=== PATIENT | female | born 1990 | race Caucasian/White ===

== ENCOUNTER → 2020-05-16 | Outpatient (CLI) | payer OTHER, SELFPAY ==
[2020-05-16 13:30] VITALS: BMI 45.1
[2020-05-16 18:20] LABS: Amphetamine Urine VISTA NEGATIVE (<1000 ng/mL); Barbiturate Urine VISTA NEGATIVE (< 200 ng/mL); Benzodiazepine Urine VISTA NEGATIVE (< 200 ng/mL); Cocaine Urine VISTA NEGATIVE (< 300 ng/mL); Ecstacy Urine VISTA NEGATIVE (< 500 ng/mL); Methadone Urine VISTA NEGATIVE (< 300 ng/mL); PCP Urine VISTA NEGATIVE (< 25 ng/mL); THC Urine VISTA NEGATIVE (< 50 ng/mL); Vista UDS pH Range 5
[2020-05-22 13:16] LABS: HPV APTIMA, High Risk Negative (Negative)
== END | disposition home or self-care (01) ==
LOC: LABSPEC 17:23
PROVIDERS: PCP Family Medicine; Referring Provider Obstetrics & Gynecology; Visit Provider Obstetrics & Gynecology
DX: Z34.90 Encounter for supervision of normal pregnancy, unspecified, unspecified trimester (principal)
CPT/HCPCS: 80307; 87086; 87088; 87491; 87591; 87624; 88175; G0145

== ENCOUNTER → 2020-06-06 09:54 | Outpatient (CLI) | payer OTHER, SELFPAY ==
[2020-05-16 13:30] VITALS: BMI 45.1
[2020-06-06 10:40] LABS: Absolute Neutrophil Count 4.8 X10^3/uL (2.0-7.7); Basophil# 0.01 X10^3/uL; Basophil% 0.1 % (0-1); Eosinophil# 0.11 X10^3/uL; Eosinophils% 1.6 % (0-5); Hemoglobin 12.7 g/dL (12.0-15.0); Lymphocyte % 23.3 % (19-41); Mean Corp Hgb Conc 32.6 g/dL (32-36); Mean Corpuscular Hgb 27.9 pg (27.0-32.0); Mean Corpuscular Volume 85.5 fL (81-99); Mean Platelet Vol. 10.1 fl (6.2-12.0); Monocyte# 0.34 X10^3/uL; Monocyte% 4.9 % (0-10); NRBC Flagged by Analyzer 0 % (0-5); Neutrophil # 4.76 X10^3/uL (2.7-7.7); Neutrophil % 69.2 % (47-70); Platelet Count 239 K/mm3 (150-450); RBC Distribution Width CV 13.1 % (11.6-14.6); RBC Distribution Width SD 40.5 fl (35.1-43.9); Red Blood Count 4.56 M/mm3 (4.2-5.4); White Blood Count 6.9 K/mm3 (4.4-11.0)
[2020-06-06 10:59] LABS: NATERA MAILED SPECIMEN
[2020-06-06 11:05] LABS: Glucose Challenge Gest 1H 50g 157 mg/dL (70-140)
[2020-06-06 11:45] LABS: HIV - WCH Non-Reactive (Nonreactive); Hepatitis B Surface Antigen Non-Reactive (Nonreactive); Hepatitis C Antibody Non-Reactive (Nonreactive); Rubella IgG 86.3 IU/mL
[2020-06-08 02:16] LABS: Rapid Plasmin Reagin (RPR) NONREACTIVE (NONREACTIVE)
== END ==
PROVIDERS: PCP Family Medicine; Referring Provider Obstetrics & Gynecology; Visit Provider Obstetrics & Gynecology
DX: Z34.81 Encounter for supervision of other normal pregnancy, first trimester (principal)
CPT/HCPCS: 36415; 82950; 85025; 86592; 86703; 86762; 86803; 86850; 86900; 86901; 87340

== ENCOUNTER → 2020-06-13 | Outpatient (CLI) | payer OTHER, SELFPAY ==
[2020-06-13 13:35] VITALS: BMI 45.1
[2020-06-13 19:45] LABS: Chlamydia Trachomatis by PCR Negative (Negative); Neisserai gonorrhoeae by PCR Negative (Negative); Probe Check PASS; Sample Adequacy Control PASS; Specimen Processing Control PASS
== END | disposition home or self-care (01) ==
LOC: LABSPEC 16:46
PROVIDERS: PCP Family Medicine; Referring Provider Obstetrics & Gynecology; Visit Provider Obstetrics & Gynecology
DX: Z34.90 Encounter for supervision of normal pregnancy, unspecified, unspecified trimester (principal)
CPT/HCPCS: 87491; 87591

== ENCOUNTER → 2020-06-14 06:56 | Outpatient (CLI) | payer OTHER, SELFPAY ==
[2020-05-16 13:30] VITALS: BMI 45.1
[2020-06-13 13:35] VITALS: BMI 45.1
[2020-06-14 08:04] LABS: Glucose GTT-Gestation. Fasting 102 mg/dL (<105)
[2020-06-14 08:40] LABS: Glucose GTT-Gestational 1 Hr 160 mg/dL (<190)
[2020-06-14 10:26] LABS: Glucose GTT-Gestational 2 Hr 158 mg/dL (<165)
[2020-06-14 11:36] LABS: Glucose GTT-Gestational 3 Hr 136 L (<145)
== END ==
PROVIDERS: Referring Provider Obstetrics & Gynecology; Visit Provider Obstetrics & Gynecology
DX: O99.810 Abnormal glucose complicating pregnancy (principal)
CPT/HCPCS: 36415; 82951; 82952

== ENCOUNTER 2020-07-18 08:30 | Outpatient (RCR) | payer OTHER, SELFPAY ==
[2020-06-20 15:22] VITALS: BMI 45.1
== END 2020-07-19 23:59 ==
LOC: DC 08:30
PROVIDERS: Visit Provider Obstetrics & Gynecology
DX: Z71.3 Dietary counseling and surveillance (principal); O24.419 Gestational diabetes mellitus in pregnancy, unspecified control; Z3A.00 Weeks of gestation of pregnancy not specified
CPT/HCPCS: 97802; G0108

== ENCOUNTER 2020-08-10 10:00 | Outpatient (RCR) | payer OTHER, SELFPAY ==
[2020-07-11 13:47] VITALS: BMI 44.1
== END 2020-08-19 23:59 ==
LOC: DC 10:00
PROVIDERS: Visit Provider Obstetrics & Gynecology
DX: Z71.3 Dietary counseling and surveillance (principal); O24.419 Gestational diabetes mellitus in pregnancy, unspecified control; Z3A.00 Weeks of gestation of pregnancy not specified
CPT/HCPCS: G0108

== ENCOUNTER → 2020-08-25 13:18 | Outpatient (CLI) | payer OTHER, SELFPAY ==
[2020-08-07 11:57] VITALS: BMI 43.8
== END ==
PROVIDERS: Referring Provider Obstetrics & Gynecology; Visit Provider Obstetrics & Gynecology
DX: O09.90 Supervision of high risk pregnancy, unspecified, unspecified trimester (principal); Z3A.00 Weeks of gestation of pregnancy not specified
CPT/HCPCS: 36415

== ENCOUNTER 2020-09-07 10:00 | Outpatient (RCR) | payer OTHER, SELFPAY ==
[2020-08-07 11:57] VITALS: BMI 43.8
== END 2020-09-07 23:59 | disposition home or self-care (01) ==
LOC: DC 10:00
PROVIDERS: Visit Provider Obstetrics & Gynecology
DX: O24.419 Gestational diabetes mellitus in pregnancy, unspecified control (principal); Z3A.00 Weeks of gestation of pregnancy not specified

== ENCOUNTER → 2020-09-25 09:09 | Outpatient (CLI) | payer OTHER, SELFPAY ==
[2020-08-07 11:57] VITALS: BMI 43.8
[2020-09-19 11:22] VITALS: BMI 43.0
--- NOTE | 2020-09-25 09:11 | US_ITS ---
STUDY: SECOND AND THIRD TRIMESTER OBSTETRICAL ULTRASOUND REASON FOR EXAM: Female, 29 years old growth LMP: 03/12/2020. TECHNIQUE: Transabdominal TECHNICAL QUALITY: Adequate. PRIOR ULTRASOUND: None. FINDINGS: There is a single intrauterine fetus. The fetus is in a cephalic presentation. There is demonstrated cardiac activity with a heart rate of 143 bpm. There is a normal amniotic fluid volume. The largest amniotic fluid pocket measures 6 cm x 4.9 cm. The amniotic fluid index (MARCUS) is within normal limits. The placenta is anterior in location and is not low lying. There are Grade 1 placental changes. The cervix measures 3.9 cm in length. The adnexal regions are not visualized. BIOMETRY: BPD: 7.42 cm: 29 weeks, 5 days HC: 26.7 cm: 29 weeks, 0 days AC: 24.55 cm: 28 weeks, 5 days FL: 5.27 cm: 28 weeks, 0 days CI: 81.5% FL/BPD: 71.1% FL/HC: FL/AC: 21.5% HC/AC: 1.09 age by current US: 28 weeks, 4 days. RADHA by current US: 12/14/2020. Estimated weight: 1259 grams, +/- 186 grams, 56 %. Age by LMP: 28 weeks, 0 days. RADHA by LMP: 12/18/2020. US/OB Limited With Biometrics IMPRESSION: Single live intrauterine gestation with a mean gestational age of 28 weeks and 4 days. Electronically Signed: Rodrigo Madera, at 12:57 EST , Service support ,
== END ==
LOC: OPUS 09:10
PROVIDERS: Referring Provider Obstetrics & Gynecology; Visit Provider Obstetrics & Gynecology
DX: O24.419 Gestational diabetes mellitus in pregnancy, unspecified control (principal); O99.213 Obesity complicating pregnancy, third trimester; Z3A.28 28 weeks gestation of pregnancy
CPT/HCPCS: 76816

== ENCOUNTER → 2020-10-03 13:23 | Outpatient (CLI) | payer OTHER, SELFPAY ==
[2020-10-03 13:01] VITALS: BMI 43.2
[2020-10-03 13:44] LABS: Absolute Lymphocyte Count 1.37 X10^3/uL (0.83-4.51); Absolute Neutrophil Count 7.4 X10^3/uL (2.0-7.7); Basophil# 0.01 X10^3/uL; Basophil% 0.1 % (0-1); Eosinophil# 0.05 X10^3/uL; Eosinophils% 0.5 % (0-5); Hematocrit 37.7 % (37-47); Hemoglobin 12.1 g/dL (12.0-15.0); Lymphocyte # 1.37 X10^3/ul (4.0); Lymphocyte % 14.5 % (19-41); Mean Corp Hgb Conc 32.1 g/dL (32-36); Mean Corpuscular Hgb 27.4 pg (27.0-32.0); Mean Corpuscular Volume 85.5 fL (81-99); Mean Platelet Vol. 10.4 fl (6.2-12.0); Monocyte# 0.58 X10^3/uL; Monocyte% 6.1 % (0-10); NRBC Flagged by Analyzer 0 % (0-5); Neutrophil # 7.37 X10^3/uL (2.7-7.7); Neutrophil % 78.2 % (47-70); Platelet Count 236 K/mm3 (150-450); RBC Distribution Width CV 14.1 % (11.6-14.6); RBC Distribution Width SD 43.8 fl (35.1-43.9); Red Blood Count 4.41 M/mm3 (4.2-5.4); White Blood Count 9.4 K/mm3 (4.4-11.0)
== END ==
PROVIDERS: Nurse Practitioner Women's Health; Referring Provider Obstetrics & Gynecology; Visit Provider Obstetrics & Gynecology
DX: O09.90 Supervision of high risk pregnancy, unspecified, unspecified trimester (principal); O26.899 Other specified pregnancy related conditions, unspecified trimester; Z67.91 Unspecified blood type, Rh negative
CPT/HCPCS: 36415; 85025; 86850; 86900; 86901

== ENCOUNTER → 2020-10-23 09:06 | Outpatient (CLI) | payer OTHER, SELFPAY ==
[2020-08-07 11:57] VITALS: BMI 43.8
[2020-10-18 13:04] VITALS: BMI 43.4
--- NOTE | 2020-10-23 09:09 | US_ITS ---
STUDY: SECOND AND THIRD TRIMESTER OBSTETRICAL ULTRASOUND - LIMITED REASON FOR EXAM: Female, 29 years old GROWTH -GEST DM LMP: 03/12/2020 PRIOR ULTRASOUND: 09/25/2020 TECHNIQUE: Transabdominal TECHNICAL QUALITY: Adequate. FINDINGS: There is a single intrauterine fetus. The fetus is in a cephalic presentation. There is demonstrated cardiac activity with a heart rate of 144 bpm. There is a normal amniotic fluid volume. The largest amniotic fluid pocket measures 4.8 cm. The amniotic fluid index (MARCUS) is 11.5 cm. The placenta is anterior in location and is not low lying. There are Grade 1 placental changes. The cervix measures 2.6 cm in length. BIOMETRY: BPD: 8.4 cm: 33 weeks, 4 days HC: 29.9 cm: 33 weeks, 0 days AC: 29.4 cm: 33 weeks, 2 days FL: 6.2 cm: 32 weeks, 0 days Age by LMP: 32 weeks, 0 days. RADHA by LMP: 12/18/2020. age by current US: 32 weeks, 5 days. RADHA by current US: 12/13/2020. Estimated weight: 2094 grams, +/- 310 grams, 67 percentile. Gender: US/OB Limited With Biometrics IMPRESSION: Living intrauterine of 32 weeks 5 days as described above. Electronically Signed: Gary Yost MD at 10:33 EST Tel , Service support ,
== END ==
LOC: OPUS 09:07
PROVIDERS: Referring Provider Obstetrics & Gynecology; Visit Provider Obstetrics & Gynecology
DX: O24.419 Gestational diabetes mellitus in pregnancy, unspecified control (principal); O99.210 Obesity complicating pregnancy, unspecified trimester; Z3A.32 32 weeks gestation of pregnancy
CPT/HCPCS: 76816; 76817

== ENCOUNTER → 2020-10-30 09:01 | Outpatient (CLI) | payer OTHER, SELFPAY ==
[2020-08-07 11:57] VITALS: BMI 43.8
[2020-10-18 13:04] VITALS: BMI 43.4
--- NOTE | 2020-10-30 09:04 | US_ITS ---
STUDY: SECOND AND THIRD TRIMESTER OBSTETRICAL ULTRASOUND - LIMITED REASON FOR EXAM: Female, 29 years old MARCUS, GESTATIONAL DIABETES LMP: 03/13/2020. PRIOR ULTRASOUND: Comparison is made with prior study dated 10/23/2020. TECHNIQUE: Transabdominal TECHNICAL QUALITY: Adequate. FINDINGS: There is a single intrauterine fetus. The fetus is in a cephalic presentation. There is demonstrated cardiac activity with a heart rate of 155 bpm. There is a normal amniotic fluid volume. The largest amniotic fluid pocket measures 5.4 cm. The amniotic fluid index (MARCUS) is 13.14 cm. The placenta is anterior in location and is not low lying. There are Grade 1 placental changes. The cervix measures 3.1 cm in length. BIOMETRY: Age by LMP: 33 weeks, 0 days. RADHA by LMP: 12/18/2020. age by prior US: 33 weeks, 4 days. RADHA by prior US: 12/14/2020. US/OB Limited (No Biometrics) IMPRESSION: Normal amniotic fluid. Electronically Signed: Rodrigo Madera, at 9:29 EST , Service support ,
== END ==
LOC: OPUS 09:03
PROVIDERS: Referring Provider Obstetrics & Gynecology; Visit Provider Obstetrics & Gynecology
DX: O24.419 Gestational diabetes mellitus in pregnancy, unspecified control (principal); O99.213 Obesity complicating pregnancy, third trimester; Z3A.33 33 weeks gestation of pregnancy
CPT/HCPCS: 76815

== ENCOUNTER → 2020-11-06 09:06 | Outpatient (CLI) | payer OTHER, SELFPAY ==
[2020-08-07 11:57] VITALS: BMI 43.8
[2020-11-02 10:27] VITALS: BMI 43.8
--- NOTE | 2020-11-06 09:08 | US_ITS ---
STUDY: SECOND AND THIRD TRIMESTER OBSTETRICAL ULTRASOUND - LIMITED REASON FOR EXAM: Female, 29 years old MARCUS LMP: 03/13/2020. PRIOR ULTRASOUND: Comparison is made with prior study dated 10/30/2020. TECHNIQUE: Transabdominal and Transvaginal TECHNICAL QUALITY: Adequate. FINDINGS: There is a single intrauterine fetus. The fetus is in a cephalic presentation. There is demonstrated cardiac activity with a heart rate of 160 bpm. There is a normal amniotic fluid volume. The largest amniotic fluid pocket measures 5.0 cm. The amniotic fluid index (MARCUS) is 13.83 cm. The placenta is anterior in location and is not low lying. There are Grade 2 placental changes. The cervix measures 2.4 cm in length. BIOMETRY: Age by LMP: 34 weeks, 0 days. RADHA by LMP: 12/18/2020. age by prior US: 34 weeks, 4 days. RADHA by prior US: 12/14/2020. US/OB Limited (No Biometrics) IMPRESSION: Normal amniotic fluid index. Electronically Signed: Rodrigo Madera MD at 10:25 EST , Service support ,
== END ==
LOC: OPUS 09:07
PROVIDERS: Referring Provider Obstetrics & Gynecology; Visit Provider Obstetrics & Gynecology
DX: O24.419 Gestational diabetes mellitus in pregnancy, unspecified control (principal); O99.213 Obesity complicating pregnancy, third trimester; E66.9 Obesity, unspecified; Z3A.34 34 weeks gestation of pregnancy
CPT/HCPCS: 76815; 76817

== ENCOUNTER → 2020-11-09 13:06 | Outpatient (CLI) | payer OTHER, SELFPAY ==
[2020-11-09 11:27] VITALS: BMI 43.9
--- NOTE | 2020-11-09 13:08 | US_ITS ---
STUDY: OBSTETRICAL ULTRASOUND - BIOPHYSICAL PROFILE REASON FOR EXAM: Female, 29 years old BPP, NON-REACTIVE NST LMP: 03/13/2020. PRIOR ULTRASOUND: Comparison is made with prior examination dated 11/06/2020. TECHNIQUE: Transabdominal TECHNICAL QUALITY: Adequate. FINDINGS: There is a single intrauterine fetus. The fetus is in a cephalic presentation. There is demonstrated cardiac activity with a heart rate of 149 bpm. There is a normal amniotic fluid volume. The largest amniotic fluid pocket measures 5 cm. The amniotic fluid index (MARCUS) is 12.2 cm. The placenta is anterior in location and is not low lying. There are Grade 2 placental changes. Age by LMP: 34 weeks, 3 days. RADHA by LMP: 12/18/2020. age by prior US: 34 weeks, 3 days. RADHA by prior US: 12/18/2020. BIOPHYSICAL PROFILE: Breathing Movements (FBM): 2 Gross Body Movements (GBM): 2 Tone (FT): 2 Amniotic Fluid Volume (AFV): 2 TOTAL SCORE: 8 / 8 US/Biophysical Prof W/O Non Stres IMPRESSION: Normal biophysical profile of 8/8. Electronically Signed: Rodrigo Madera MD at 14:10 EST , Service support ,
== END ==
LOC: US 13:07
PROVIDERS: Visit Provider Obstetrics & Gynecology
DX: O28.8 Other abnormal findings on antenatal screening of mother (principal)
CPT/HCPCS: 76819

== ENCOUNTER → 2020-11-13 09:05 | Outpatient (CLI) | payer OTHER, SELFPAY ==
[2020-08-07 11:57] VITALS: BMI 43.8
[2020-11-09 11:27] VITALS: BMI 43.9
--- NOTE | 2020-11-13 09:08 | US_ITS ---
STUDY: SECOND AND THIRD TRIMESTER OBSTETRICAL ULTRASOUND - LIMITED REASON FOR EXAM: Female, 29 years old MARCUS LMP: 03/13/2020. PRIOR ULTRASOUND: Comparison is made with prior sonogram dated 11/09/2020. TECHNIQUE: Transabdominal TECHNICAL QUALITY: Adequate. FINDINGS: There is a single intrauterine fetus. The fetus is in a cephalic presentation. There is demonstrated cardiac activity with a heart rate of 157 bpm. There is a normal amniotic fluid volume. The largest amniotic fluid pocket measures 3.6 cm. The amniotic fluid index (MARCUS) is 8.7 cm. The placenta is anterior in location and is not low lying. There are Grade 1 placental changes. The cervix measures 2.8 cm in length. BIOMETRY: Age by LMP: 35 weeks, 2 days. RADHA by LMP: 12/18/2020. age by prior US: 35 weeks, 4 days. RADHA by prior US: 12/14/2020. US/OB Limited (No Biometrics) IMPRESSION: Normal amniotic fluid index. Electronically Signed: Rodrigo Madera MD at 15:15 EST , Service support ,
== END ==
LOC: OPUS 09:05
PROVIDERS: Referring Provider Obstetrics & Gynecology; Visit Provider Obstetrics & Gynecology
DX: O24.419 Gestational diabetes mellitus in pregnancy, unspecified control (principal); O99.213 Obesity complicating pregnancy, third trimester; E66.9 Obesity, unspecified; Z3A.35 35 weeks gestation of pregnancy
CPT/HCPCS: 76815

== ENCOUNTER → 2020-11-20 09:05 | Outpatient (CLI) | payer OTHER, SELFPAY ==
[2020-08-07 11:57] VITALS: BMI 43.8
[2020-11-16 10:32] VITALS: BMI 43.8
--- NOTE | 2020-11-20 09:07 | US_ITS ---
STUDY: SECOND AND THIRD TRIMESTER OBSTETRICAL ULTRASOUND REASON FOR EXAM: Female, 29 years old growth LMP: 03/13/2020. TECHNIQUE: Transabdominal TECHNICAL QUALITY: Adequate. PRIOR ULTRASOUND: Comparison is made with prior study dated 05/13/2021. FINDINGS: There is a single intrauterine fetus. The fetus is in a cephalic presentation. There is demonstrated cardiac activity with a heart rate of 136 bpm. There is a normal amniotic fluid volume. The largest amniotic fluid pocket measures 4.5 cm. The amniotic fluid index (MARCUS) is 13.4 cm. The placenta is anterior in location and is not low lying. There are Grade 2 placental changes. The cervix measures 2.9 cm in length. The adnexal regions are not visualized. BIOMETRY: BPD: 9.13 cm: 37 weeks, 0 days HC: 32.3 cm: 36 weeks, 3 days AC: 32.6 cm: 36 weeks, 3 days FL: 6.9 cm: 35 weeks, 2 days CI: 84% FL/BPD: 75% FL/HC: FL/AC: 21% HC/AC: 0.99 age by current US: 36 weeks, 0 days. RADHA by current US: 12/18/2020. Estimated weight: 2932 grams, +/- 440 grams, 63 %. age by prior US: 36 weeks, 5 days. RADHA by prior US: 12/13/2020. Age by LMP: 36 weeks, 0 days. RADHA by LMP: 12/18/2020. US/OB Limited With Biometrics IMPRESSION: Single live intrauterine gestation with a mean gestational age of 36 weeks and 5 days. The measurements obtained today fall within the normal expected range. Electronically Signed: Rodrigo Madera MD at 10:41 EST , Service support ,
[2020-11-20 11:17] LABS: Absolute Lymphocyte Count 1.55 X10^3/uL (0.83-4.51); Basophil# 0.01 X10^3/uL; Basophil% 0.1 % (0-1); Eosinophil# 0.06 X10^3/uL; Eosinophils% 0.6 % (0-5); Hematocrit 38.8 % (37-47); Hemoglobin 12.7 g/dL (12.0-15.0); Lymphocyte # 1.55 X10^3/ul (4.0); Lymphocyte % 16.7 % (19-41); Mean Corp Hgb Conc 32.7 g/dL (32-36); Mean Corpuscular Hgb 27.4 pg (27.0-32.0); Mean Corpuscular Volume 83.8 fL (81-99); Mean Platelet Vol. 10.7 fl (6.2-12.0); Monocyte% 6.5 % (0-10); NRBC Flagged by Analyzer 0 % (0-5); Neutrophil # 6.99 X10^3/uL (2.7-7.7); Neutrophil % 75.6 % (47-70); Platelet Count 233 K/mm3 (150-450); RBC Distribution Width CV 14.7 % (11.6-14.6); RBC Distribution Width SD 44.4 fl (35.1-43.9); Red Blood Count 4.63 M/mm3 (4.2-5.4); White Blood Count 9.3 K/mm3 (4.4-11.0)
[2020-11-20 11:34] LABS: ALB/GLOB Ratio 0.5 RATIO (0.9-2.4); AST(SGOT) 16 U/L (15-37); Alanine Aminotransfer ALT/SGPT 28 U/L (13-56); Albumin, Serum 2.4 g/dL (3.2-5.0); Alkaline Phosphatase 142 U/L (45-117); Anion Gap 9 (5-15); BUN 7 mg/dL (7-18); BUN/Creat Ratio 10.7 RATIO (10-20); Chloride 105 mmol/L (98-107); Creatinine, Serum 0.66 mg/dL (0.55-1.02); EST Glomerular Filtration Rate 111 mL/min (>60); Est Glom Filt Rate - Afr Amer 135 mL/min (>60); Globulin 4.4 g/dL (2.2-4.2); Glucose 90 mg/dL (74-106); Protein, Total 6.8 g/dL (6.4-8.2); Sodium Level 138 mmol/L (136-145)
[2020-11-20 14:04] LABS: Creatinine, Urine (random) < 13.00 mg/dL (NO RANGE EST.); Protein, Urine (Random) < 6.0 mg/dL (<11.9)
== END ==
PROVIDERS: Nurse Practitioner Women's Health; Referring Provider Obstetrics & Gynecology; Visit Provider Obstetrics & Gynecology
DX: O24.419 Gestational diabetes mellitus in pregnancy, unspecified control (principal); O13.3 Gestational [pregnancy-induced] hypertension without significant proteinuria, third trimester; O99.213 Obesity complicating pregnancy, third trimester; E66.9 Obesity, unspecified; Z3A.36 36 weeks gestation of pregnancy
CPT/HCPCS: 36415; 76816; 80053; 82570; 84156; 85025

== ENCOUNTER → 2020-11-23 | Outpatient (CLI) | payer OTHER, SELFPAY ==
[2020-11-23 10:10] VITALS: BMI 44.4
== END | disposition home or self-care (01) ==
LOC: LABSPEC 13:50
PROVIDERS: Referring Provider Nurse Practitioner Women's Health; Visit Provider Nurse Practitioner Women's Health
DX: Z34.90 Encounter for supervision of normal pregnancy, unspecified, unspecified trimester (principal); R35.0 Frequency of micturition
CPT/HCPCS: 87081

== ENCOUNTER → 2020-11-27 09:18 | Outpatient (CLI) | payer OTHER, SELFPAY ==
[2020-08-07 11:57] VITALS: BMI 43.8
[2020-11-23 10:10] VITALS: BMI 44.4
--- NOTE | 2020-11-27 09:19 | US_ITS ---
STUDY: SECOND AND THIRD TRIMESTER OBSTETRICAL ULTRASOUND - LIMITED REASON FOR EXAM: Female, 29 years old MARCUS LMP: 03/13/2020. PRIOR ULTRASOUND: Comparison is made with prior study dated 11/20/2020. TECHNIQUE: Transabdominal TECHNICAL QUALITY: Adequate. FINDINGS: There is a single intrauterine fetus. The fetus is in a cephalic presentation. There is demonstrated cardiac activity with a heart rate of 147 bpm. There is a normal amniotic fluid volume. The largest amniotic fluid pocket measures 5.5 cm. The amniotic fluid index (MARCUS) is 15 cm. The placenta is anterior in location and is not low lying. There are Grade 2 placental changes. The cervix is not visualized due to the head positioning. US/OB Limited (No Biometrics) IMPRESSION: Normal amniotic fluid index. Electronically Signed: Rodrigo Madera MD at 13:39 EST , Service support ,
== END ==
PROVIDERS: Referring Provider Obstetrics & Gynecology; Visit Provider Obstetrics & Gynecology
DX: O26.899 Other specified pregnancy related conditions, unspecified trimester (principal); R30.0 Dysuria; O24.419 Gestational diabetes mellitus in pregnancy, unspecified control; O99.210 Obesity complicating pregnancy, unspecified trimester
CPT/HCPCS: 76815; 87086; 87088

== ENCOUNTER 2020-11-28 02:14 | Inpatient (IN) | payer OTHER, SELFPAY ==
[2020-11-27 10:11] VITALS: BMI 44.7
[2020-11-28] VITALS (57 sets, daily range): BP systolic 117–163; BP diastolic 56–87; PULSE 87–120; RESP 16–18; TEMP 36.3–37.4; O2SAT 96–100; BMI 43.7
[2020-11-28 02:12] LABS: ROM Internal Control Test YES-OK TO RESULT pt. (Internal QC)
[2020-11-28 02:13] LABS: ROM Patient Test POSITIVE (Negative)
[2020-11-28] MEDS: Mag Hydrox/Al Hydrox/Simeth 30 ML UDC PO ×3 (03:09→12:13)
[2020-11-28 03:11] LABS: Absolute Lymphocyte Count 1.97 X10^3/uL (0.83-4.51); Basophil# 0.01 X10^3/uL; Basophil% 0.1 % (0-1); Eosinophil# 0.04 X10^3/uL; Eosinophils% 0.4 % (0-5); Hematocrit 36.9 % (37-47); Hemoglobin 11.9 g/dL (12.0-15.0); Lymphocyte # 1.97 X10^3/ul (4.0); Lymphocyte % 20.2 % (19-41); Mean Corp Hgb Conc 32.2 g/dL (32-36); Mean Corpuscular Hgb 26.6 pg (27.0-32.0); Mean Corpuscular Volume 82.4 fL (81-99); Mean Platelet Vol. 11.1 fl (6.2-12.0); Monocyte# 0.63 X10^3/uL; Monocyte% 6.5 % (0-10); NRBC Flagged by Analyzer 0 % (0-5); Neutrophil # 7.04 X10^3/uL (2.7-7.7); Neutrophil % 72.2 % (47-70); Platelet Count 248 K/mm3 (150-450); RBC Distribution Width CV 14.7 % (11.6-14.6); RBC Distribution Width SD 43.3 fl (35.1-43.9); Red Blood Count 4.48 M/mm3 (4.2-5.4); White Blood Count 9.8 K/mm3 (4.4-11.0)
[2020-11-28 03:55] LABS: Bedside Glucose 104 mg/dL (70-110)
[2020-11-28 03:55] LABS: Bedside Glucose 98 mg/dL (70-110)
[2020-11-28] MEDS: Lactated Ringers 500 ML 999 ML IV ×2 (05:29→11:11)
[2020-11-28] MEDS: Lactated Ringers 1,000 ML 200 ML IV (06:00)
[2020-11-28] MEDS: fentaNYL-bupivacaine (epidural) 100 ML BAG EPIDURAL ×2 (06:35→11:20)
[2020-11-28 07:15] LABS: Bedside Glucose 92 mg/dL (70-110)
[2020-11-28 08:06] LABS: Bedside Glucose 92 mg/dL (70-110)
[2020-11-28] MEDS: Oxytocin 30 units/NS 500 ml 30 UNITS/500 ML IV.SOLN IV (09:05)
--- NOTE | 2020-11-28 09:06 | PCM.HPOB.BLA ---
- Problem List (1) Active labor at term Status: Acute (2) SROM (spontaneous rupture of membranes) Status: Acute (3) 35 weeks gestation of Status: Acute Comment: electronic covid test ordered 11/16/20 (gave patient info to schedule) (4) Anxiety Status: Acute Comment: no meds at present, symbalta in the past. encouraged counseling. 10/03 stable (5) Family history of cleft palate Status: Acute Comment: nl US (6) History of tetanus, diphtheria, and acellular pertussis booster vaccination (Tdap) Status: Acute Comment: 10/03/20 (7) Influenza vaccine administered Status: Acute Comment: 07/11/2020sc (8) Obesity affecting Status: Acute Qualifiers: Comment: bmi 45. 1 tm glucola, discussed health weight gain in . (9) Status: Acute Qualifiers: Comment: NIPT low risk. declines carrier. afp ordered. afp negative. nl anatomy (10) Rh negative status during Status: Acute Qualifiers: Comment: Rhogam 10/03/20 , delivery and prn (11) Supervision of high-risk Status: Acute Qualifiers: Comment: PRR RADHA 12/18/20, girl, Preet (12) Gestational diabetes Status: Chronic Qualifiers: Comment: sees endocrine. on insulin. growth US q 4 weeks after 28 weeks, NL growth at 28 weeks, twice weekly nsts and weekly afis after 32 weeks; NL US /, 10/30; 11/06; 11/20; 11/27 History and Physical Date of Admission: 11/28/20 Intake Vital Signs 11/23/20 Height 5 ft 1 in 11/23/20 Weight: 235 lb Intake Visit Reasons: 35 WK OB/NST Chief Complaint: est ob nst Reporting Specialist Required: No Is patient in pain?: No Allergies penicillin G Allergy (Mild, Verified 11/23/20 10:10) other Medications calcium carbonate 300 mg (750 mg) chewable tablet 300 mg PO BID 05/16/20 history Confirmed 11/23/20 vitamin#30 30 mg iron-10 mg iron-folic acid 1 mg-omg3 capsule cap PO 05/16/20 history Confirmed 11/23/20 blood sugar diagnostic See Rx Instructions .ROUTE .MEDSUPPLY #150 ea 06/20/20 Rx Confirmed 11/23/20 famotidine 20 mg tablet 20 mg PO DAILY 06/20/20 history Confirmed 11/23/20 lancets 33 gauge See Rx Instructions .ROUTE .MEDSUPPLY #150 ea 06/20/20 Rx Confirmed 11/23/20 pen needle, diabetic 32 gauge x See Rx Instructions .ROUTE .MEDSUPPLY #50 ea 07/22/20 Rx Confirmed 11/23/20 insulin detemir U-100 100 unit/mL (3 mL) subcutaneous pen 38 unit SC QHS ml 09/22/20 history Confirmed 11/23/20 insulin lispro 100 unit/mL subcutaneous pen 12 unit SC TID #15 ml 10/10/20 Rx Confirmed 11/23/20 Last Menstral Period: 03/13/20 Zika: Zika virus screening: Negative : No PFSH PFSH Medical History Anxiety (Acute) Gestational diabetes (Acute) Surgical History History of wisdom tooth extraction, class II edentulism (Acute) Family History Mother Diabetes Grandmother Diabetes CVA (cerebral vascular accident) Grandfather Diabetes Social History (Updated 11/23/20 @ 11:[address] Syeda Chan MD) Smoking Status: Never smoker alcohol intake: never substance use type: does not use caffeine: Yes what type of physical activity do you participate in: walking frequency: 3-4 times per week seatbelt use: always do you feel safe at home: Yes additional social history: Patient works at [email or web address] Pregancy History 1 Elective abortions Hx Para Spontaneous abortions Hx # Term Pregnancies Ectopic pregnancies Hx # Pregnancies Multiple births # of living children HPI 35 WK OB/NST: Details: MEL JUARES is a 29 year old 1 P0 presents at 37 weeks with spontaneous rupture of membranes and contractions every 3 to 5 minutes. She has had a complicated by gestational diabetes controlled with insulin OB Visit RADHA Calculator Estimated Delivery Date Method Current WG Current Estimate 12/18/20 LMP (Certain) 36w 3d Other Estimates 12/20/20 Ultrasound #1 36w 1d Expected Delivery Route/Plan Labor Preferences- CB/BF classes: October labor support person: Preet labor intervention preferences: no specific pain management options preferred: epidural cut cord/dad catch: no : yes PP control planned: discussed possible routes of delivery and associated risks: special requests: Specific Issue/Plans flu vaccine: given tdap vaccine: yes rhogam: yes LARC form signed: yes movement and labor precautions reviewed. Problem list reviewed and updated with the most current plan of care details and appropriate orders placed. Relevant counseling for the gestational age provided. Continue routine care and follow up unless otherwise noted in visit notes/problem list details Initial Weight: 239 lb Date EGA Weight BP Urine Prot Glucose FHR FuHt Pres Dilation Effaced St Visit Note 05/16/20 9w 1d 239 lb (+0 oz) 170 SM- CRL- 1.9 cm consistent with LMP 06/13/20 13w 1d 238 lb (-16 oz) 100/82 Negative Negative 160 SM- no vb crmaping 07/11/20 17w 1d 234 lb (-5 lb) 128/82 Negative Negative 156 MH-NO VB, LOF. Plans AFP today. Much anxiety over GDM dx and wanting to avoid insulin. BS >50% controlled. Enc open conversation with Dr Ingram and frequent consultation with dietitian. Flu vaccine given 08/07/20 21w 0d 232 lb (-7 lb) 118/80 Negative Negative 150 SM- no vb lof good fm no regular ctx started insulin. plan SM- no vb lof good fm no regular ctx started insulin. plan increased testing in third trimester 09/04/20 25w 0d 229 lb (-10 lb) 120/78 Negative Negative 150 25 Sm- no vb lof good fm no regular ctx. BS controlled 10/03/20 29w 1d 228 lb 8 oz (-10 lb 8 oz) 122/72 Negative Negative 143 29 MH-No VB, LOF. Good FM. BS controlled >50% of time, insulin/Dr Ingram. 28 wk labs, rhogam, tdap, larc. 32 wk US and NST scheduled. 10/18/20 31w 2d 230 lb (-9 lb) 130/80 Negative Negative 150 31 GP - no LOF, VB, DFM, ctx. Discussed OTC meds for constipation. Reports started on short acting insulin. 10/30/20 33w 0d 232 lb 6 oz (-6 lb 10 oz) 132/88 Negative Negative MH-NST only-reactive 11/02/20 33w 3d 232 lb (-7 lb) 140 SM- nst 11/09/20 34w 3d 232 lb 6 oz (-6 lb 10 oz) 136/82 Negative Negative 140 34 GP - no LOF, VB, DFM, ctx. NST nonreactive in office. Added on for BPP. 11/13/20 35w 0d 232 lb 8 oz (-6 lb 8 oz) 110/70 110/82 Trace Negative 150 MH-NST only reactive 11/16/20 35w 3d 232 lb (-7 lb) SM- no vb lof good fm no regular ctx 11/20/20 36w 0d 233 lb (-6 lb) 140/82 Negative Negative 140 GP - NST only, reactive 11/23/20 36w 3d 235 lb (-4 lb) 140 0 SM- no vb lof good fm no regular ctx gbs collected ACOG First Trimester First Trimester: Desire for , Alcohol, Tobacco Cessation, Illicit/Recreational Drug/Substance Use, Intimate Partner Violence, Barriers to care, Unstable Housing, Communication Barriers, Environmental/Work Hazards, Anticipated Course of Care, Toxoplasmosis Precations, Use of Any medications, Sexual activity, Exercise, Dental Care, Sauna/Hot tub use, Seat Belt use, Childbirth classes/Hospital facilities, , Travel, Indications for US and Screening for Aneuploidy Second Trimester Second Trimester: Signs and Symptoms of Labor, Selecting a care provider, Reproductive Life Planning, Care Planning, Depression/Anxiety and Intimate Partner Violence; discussed Tobacco Cessation Diagnostics Diagnostics Diagnostics Hgb 12.7 g/dL (12.0-15.0) 11/20/20 Hct 38.8 % (37-47) 11/20/20 Details: HIV: Urine Culture: Sequential Screen: NIPT Screen: ROS Const Reports system reviewed and no additional complaints, except as documented Card Reports system reviewed and no additional complaints, except as documented Resp Reports system reviewed and no additional complaints, except as documented GI Reports system reviewed and no additional complaints, except as documented, Reports nausea Reports system reviewed and no additional complaints, except as documented Musc Reports system reviewed and no additional complaints, except as documented all other systems reviewed and negative Exam Const General: cooperative, healthy appearing, comfortable HENMT Head: normal to inspection Nose: external nose normal Face and sinus: normal facial exam Neck Neck: normal visual inspection, full ROM, no lymphadenopathy Thyroid: thyroid normal Chest Chest palpation & inspection: normal inspection of the chest Resp Effort & Inspection: normal respiratory effort GI Inspection: normal to inspection Palpation: soft, other (gravid uterus) Other: vertex and appropriate size for gestational age Other: Cervical Exam: 1-2 Extrem General: pedal edema Office Procedures OB NST Non-Stress Test Indications for Monitoring: Yes diabetes Heart Rate Baseline: 140 Heart Rate Variability: moderate Movement: Present Heart Rate Accelerations: Present Decelerations: Absent Contractions: Absent Impression: Yes Reactive Non-Stress Test Category 1 Assessment & Plan Problems 1. Anxiety F41.9 no meds at present, symbalta in the past. encouraged counseling. 10/03 stable 2. Z34.90 NIPT low risk. declines carrier. afp ordered. afp negative. nl anatomy 3. Family history of cleft palate Z82.79 nl US 4. Rh negative status during O26.899; Z67.91 Rhogam 10/03/20 , delivery and prn 5. Gestational diabetes O24.419 sees endocrine. on insulin. growth US q 4 weeks after 28 weeks, NL growth at 28 weeks, twice weekly nsts and weekly afis after 32 weeks; NL US 1/4, 10/30; 11/06; 11/20 6. History of tetanus, diphtheria, and acellular pertussis booster vaccination (Tdap) Z92.29 10/03/20 7. 35 weeks gestation of Z3A.35 electronic covid test ordered 11/16/20 8. Influenza vaccine administered Z23 07/11/2020sc 9. Obesity affecting O99.210 bmi 45. 1 tm glucola, discussed health weight gain in . Patient presents IAL, plan expectant management for , clear fluid. Pain management: Plans epidural. GBS neg. Management of any complications: Gestational diabetes will monitor blood sugars throughout labor and insulin drip as needed I have reviewed the [facility] and made any clinically relevant updates. Orders Orders: OB NST Today O24.419 POC Urinalysis 2 Dip (Clinic) Today Culture, Group B Streptococcus Today Z34.90 Coding Level of Care Code OB Routine Diagnoses Anxiety F41.9 Z34.90 Family history of cleft palate Z82.79 Rh negative status during O26.899; Z67.91 Gestational diabetes O24.419 History of tetanus, diphtheria, and acellular pertussis booster vaccination (Tdap) Z92.29 35 weeks gestation of Z3A.35 Influenza vaccine administered Z23 Obesity affecting O99.210 Additional Codes Non-Stress Test (26520)
[2020-11-28 09:31] LABS: Bedside Glucose 85 mg/dL (70-110)
[2020-11-28 10:31] LABS: Bedside Glucose 94 mg/dL (70-110)
[2020-11-28] MEDS: Ondansetron 4 MG/2 ML Vial IV (12:13)
[2020-11-28] MEDS: Oxytocin 30 units/NS 500 ml 30 UNITS/500 ML IV.SOLN 334 UNITS IV (13:04)
--- NOTE | 2020-11-28 13:15 | PCM.OPRPT ---
Problem List (1) Active labor at term Status: Acute (2) SROM (spontaneous rupture of membranes) Status: Acute (3) 35 weeks gestation of Status: Acute Comment: electronic covid test ordered 11/16/20 (gave patient info to schedule) (4) Anxiety Status: Acute Comment: no meds at present, symbalta in the past. encouraged counseling. 10/03 stable (5) Family history of cleft palate Status: Acute Comment: nl US (6) History of tetanus, diphtheria, and acellular pertussis booster vaccination (Tdap) Status: Acute Comment: 10/03/20 (7) Influenza vaccine administered Status: Acute Comment: 07/11/2020sc (8) Obesity affecting Status: Acute Qualifiers: Comment: bmi 45. 1 tm glucola, discussed health weight gain in . (9) Status: Acute Qualifiers: Comment: NIPT low risk. declines carrier. afp ordered. afp negative. nl anatomy (10) Rh negative status during Status: Acute Qualifiers: Comment: Rhogam 10/03/20 , delivery and prn (11) Supervision of high-risk Status: Acute Qualifiers: Comment: PRR RADHA 12/18/20, girl, Preet (12) Gestational diabetes Status: Chronic Qualifiers: Comment: sees endocrine. on insulin. growth US q 4 weeks after 28 weeks, NL growth at 28 weeks, twice weekly nsts and weekly afis after 32 weeks; NL US 10/23, 10/30; 11/06; 11/20; 11/27 Vaginal Delivery Maternal Presentation: Active Labor, Spontaneous Rupture of Membranes ial Amniotic Membrane Rupture Type: Spontaneous at home Amniotic Fluid Description: Clear Date of Procedure: 11/28/20 Pre-Operative Diagnosis: ial Post-Operative Diagnosis: same Surgery/ Procedure Performed: Spontaneous Vaginal Delivery Type of Anesthesia: Epidural Description of Procedure: Patient began pushing and delivered the head in the [LIZETH] presentation. The head was delivered atraumatically. The anterior and posterior shoulders delivered without complication followed by the rest of the and the infant was placed on the maternal abdomen. Delayed cord clamping was employed for approximately 60 seconds. Cord was clamped and cut and gentle traction was applied to the cord and the placenta delivered spontaneously immediately following it was noted to be intact with three-vessel cord. The perineum and vagina were inspected and noted to have a small second-degree perineal laceration repaired in the usual fashion with 3-0 Vicryl Rapide. EBL was 300 cc. Patient and infant tolerated delivery well. Presentation: LIZETH Placental Delivery Description: Spontaneous Placenta Disposition: [facility] Cord Entanglement: None Estimated Blood Loss: 300 Infant A gender: Female Episiotomy Description: None Laceration: Perineal Extension/lac, 2nd degree Medications given after delivery: IV Pitocin Complications: None Multi Select Codes - Urinary/Genital Urinary/Genital CPT Codes: 60240 Vaginal [facility]
[2020-11-28 14:31] LABS: Bedside Glucose 88 mg/dL (70-110)
[2020-11-28] MEDS: 0.9% Saline Lock 10 ML Syringe IV (15:52)
[2020-11-28] MEDS: Naproxen 250 MG Tablet 500 MG PO (20:05)
[2020-11-29] VITALS (11 sets, daily range): BP systolic 126–140; BP diastolic 68–77; PULSE 78–95; RESP 16–20; TEMP 36–36.7; O2SAT 98–100
[2020-11-29] MEDS: Acetaminophen 500 MG Tablet 1000 MG PO ×2 (03:56→15:44)
[2020-11-29 06:01] LABS: Bedside Glucose 74 mg/dL (70-110)
[2020-11-29] MEDS: Naproxen 250 MG Tablet 500 MG PO (08:00)
[2020-11-29] MEDS: Senna/Docusate Sodium 1 Tablet PO (08:00)
--- NOTE | 2020-11-29 08:01 | PN.OBGYN_ITS ---
Patient Problems: Active and Suspected Problems (Last Reviewed 11/27/20 @ 10:11 by Rosalie Lynn) History of tetanus, diphtheria, and acellular pertussis booster vaccination (Tdap) (Acute) 10/03/20 Influenza vaccine administered (Acute) 07/11/2020sc Family history of cleft palate (Acute) [facility] Anxiety (Acute) no meds at present, symbalta in the past. encouraged counseling. 10/03 stable Subjective: Patient doing well without complaints. Tolerating PO. Ambulating and voiding without difficulty. Breast feeding with some difficulty. Denies chest pain, shortness of breath, calf pain/swelling, fevers, chills, lightheadedness. - Physical Exam Vitals/I&O's: Vital Signs Temp Pulse Resp BP Pulse Ox 96.8 F L 85 18 140/76 H 98 11/29/20 03:48 11/29/20 07:52 11/29/20 03:48 11/29/20 07:49 11/29/20 07:52 Oxygen Delivery Method Room Air Weight: 239 lb Body Mass Index (BMI) 43.7 Intake and Output for Last 24 Hours 11/27/20 11/28/20 11/29/20 23:59 23:59 23:59 Intake Total 2508.44 / 2508.44 Output Total 900 / 900 Balance 1608.44 / 1608.44 General: Alert, Oriented x3, Cooperative Abdomen: Soft, Non-Distended, - - FF and below U Microbiology Past 72 Hours 11/28/20 03:04 Mucosa - Nose SARS-CoV-2 Antigen (Rapid) - Final Laboratory Results 11/28/20 08:01: POC Glucose 92 11/28/20 09:19: POC Glucose 85 11/28/20 10:16: POC Glucose 94 11/28/20 14:26: POC Glucose 88 11/28/20 16:25: Screen NEGATIVE, Baby's Blood Type A POSITIVE, Baby's LEATHA NEGATIVE 11/29/20 05:50: POC Glucose 74 Current Medications Acetaminophen (Acetaminophen 500 Mg Tablet) 1,000 mg PO Q8H PRN PRN PRN Reason: Pain Score 1-3 Last Admin: 11/29/20 03:56 Dose: 1,000 mg Documented by: Bisacodyl (Bisacodyl 10 Mg Suppository) 10 mg RECTAL UD PRN PRN Reason: If no BM Dextrose (Dextrose 50%-Water 25 Gm/50 Ml Disp.Syrin) 0 gm IV X1 PRN; Protocol PRN Reason: Hypoglycemia Dibucaine (Dibucaine 30 Gm Tube) 1 applic TOPICAL TID PRN PRN; Protocol PRN Reason: Discomfort Famotidine (Famotidine 20 Mg Tablet) 20 mg PO DAILY FELICE Glucagon (Glucagon 1 Mg/Ml Syringe) 1 mg IM .X1 PRN PRN Reason: Hypoglycemia Hydrocortisone (Hydrocortisone 2.5% Crm) 1 applic TOPICAL TID PRN PRN; Protocol PRN Reason: Discomfort Methylergonovine Maleate (Methylergonovine 0.2 Mg/Ml Ampul) 0.2 mg IM X1 PRN PRN Reason: Excess bleeding/uterine atony Naproxen (Naproxen 250 Mg Tablet) 500 mg PO Q8H PRN PRN PRN Reason: Pain Score 1-3 Last Admin: 11/29/20 08:00 Dose: 500 mg Documented by: Ondansetron HCl (Ondansetron 4 Mg/2 Ml Vial) 4 mg IV Q4H PRN PRN PRN Reason: Nausea Oxycodone HCl (Oxycodone 5 Mg Tablet) 5 - 10 mg PO Q4H PRN PRN PRN Reason: Pain Score 4-10 Multivit/Folic Acid/Iron ( Vits Tablet) 1 tablet PO DAILY@1200 [facility] Senna/Docusate Sodium (Senna/Docusate Sodium 1 Tablet) 1 - 2 tablet PO DAILY PRN PRN PRN Reason: Constipation Last Admin: 11/29/20 08:00 Dose: 1 tablet Documented by: Simethicone (Simethicone 80 Mg Tablet) 80 mg PO PCHS PRN PRN Reason: Indigestion/Stomach pain Sodium Chloride (0.9% Saline Lock 10 Ml Syringe) 5 - 15 ml IV UD PRN PRN Reason: SALINE FLUSH Last Admin: 11/28/20 15:52 Dose: 10 ml Documented by: Medical Necessity - Tobacco Use Smoking Status: Never smoker Assessment/Plan All Active Problems (Last Reviewed 11/27/20 @ 10:11 by Rosalie Lynn) History of tetanus, diphtheria, and acellular pertussis booster vaccination (Tdap) (Acute) Influenza vaccine administered (Acute) Family history of cleft palate (Acute) Anxiety (Acute) 35 weeks gestation of (Resolved) Active labor at term (Resolved) Gestational diabetes (Resolved) Obesity affecting (Resolved) (Resolved) Rh negative status during (Resolved) SROM (spontaneous rupture of membranes) (Resolved) Supervision of high-risk (Resolved) Encounter for prophylactic administration of RhoGAM (Resolved) s/p PPD # 1 1. routine post delivery care 2. breast feeding- support given 3. rh negative 4. rubella immune 5. blood glucose WNL
[2020-11-29] MEDS: Famotidine 20 MG Tablet PO (10:39)
[2020-11-29] MEDS: Prenatal Vits Tablet 1 TABLET PO (12:35)
[2020-11-30] MEDS: Naproxen 250 MG Tablet 500 MG PO ×2 (00:52→12:48)
[2020-11-30 03:20] VITALS: BP 133/59; PULSE 77; RESP 16; TEMP 36.7; O2SAT 98
[2020-11-30 03:22] VITALS: BP 133/59; PULSE 76; O2SAT 97
[2020-11-30] MEDS: Senna/Docusate Sodium 1 Tablet PO (06:11)
[2020-11-30 08:17] VITALS: BP 136/82; PULSE 100; RESP 20; TEMP 36.8
--- NOTE | 2020-11-30 09:25 | DCINST_ITS ---
Discharge Diet: No Restrictions Discharge Activity: Return to Normal Activity, May not drive while taking narcotic pain medications., May Shower May resume sexual activity in: 4-6 weeks Additional Activity Instructions:: Nothing in the vagina for 4-6 weeks. You may return to work/school in 6 weeks. Call your doctor if your incision/area has: Continuous Slow Oozing, Sudden Increased Bleeding, Increased Pain/ Swelling, Increased Redness, Foul Smelling Discharge Additional Instructions: If you experience any of the following, contact your healthcare provider. * Bleeding that soaks a pad every hour for 2 hours * Fever 100.4 or higher * Unrelieved incision or abdominal pain * Swelling, redness, discharge or bleeding from your incision or episiotomy site * Your incision begins to separate * Problems urinating (including inability to urinate or burning while urinating). * Visual changes * Severe headache * Flu-like symptoms * Pain or redness in one of both of your breasts * Pain, warmth, tenderness or swelling in your legs, especially the calf area * Frequent nausea and vomiting * Symptoms of depression or anxiety If you experience any of the following, call 911 or go to the nearest Emergency Room. * Chest pain * Problems breathing * Seizure activity * Partial or complete paralysis of a body part, slurred speech, weakness or drooping of the face, or a sudden inability to walk or hold your balance Allergies/Adverse Reactions: Allergies penicillin G Allergy (Mild, Verified 11/27/20 10:11) other cefaclor [From Ceclor] Allergy (Verified 11/28/20 04:53) Rash Medications to take at Discharge calcium carbonate 300 mg (750 mg) chewable tablet 300 mg PO BID 05/16/20 vitamin#30 30 mg iron-10 mg iron-folic acid 1 mg-omg3 capsule 1 cap PO DAILY 05/16/20 famotidine 20 mg tablet 20 mg PO DAILY 06/20/20 Naproxen [Naprosyn] 250 - 500 mg PO Q8H PRN PRN #30 tab 11/30/20 The following prescriptions were given: Naproxen [Naprosyn] 250 - 500 mg PO Q8H PRN PRN #30 tab PRN Reason: MILD PAIN Transmission Status: Pending to [facility] When: Call to make an appointment with your doctor in 6 weeks. If you had elevated Blood Pressure or 4th degree laceration you will need to be seen in 2 weeks. Primary Care Physician: Care Physician,No Primary [Primary Care Provider] - Test Results: Test results from this visit will be discussed in further detail at your follow- up appointment, if applicable.
[2020-11-30] MEDS: Famotidine 20 MG Tablet PO (12:49)
[2020-11-30] MEDS: Prenatal Vits Tablet 1 TABLET PO (12:49)
[2020-11-30 14:46] VITALS: BP 130/70; PULSE 77; RESP 18; TEMP 36.4
--- NOTE | 2020-11-30 15:25 | NURSING ---
1530-mom in wheel chair and baby in carseat on her lap. discharged off unit.
== END 2020-11-30 15:30 | disposition home or self-care (01) | DRG 807 ==
LOC: WPOUT 02:18 → WP 02:18
PROVIDERS: Admitting Provider Obstetrics & Gynecology; Referring Provider Obstetrics & Gynecology; Visit Provider Obstetrics & Gynecology
DX: O24.424 Gestational diabetes mellitus in childbirth, insulin controlled (principal); O70.1 Second degree perineal laceration during delivery; O99.214 Obesity complicating childbirth; E66.9 Obesity, unspecified; Z67.91 Unspecified blood type, Rh negative; Z3A.37 37 weeks gestation of pregnancy; Z37.0 Single live birth
CPT/HCPCS: 59025; 59050; 82962; 84112; 85025; 85461; 86850; 86900; 86901; 87426; 90384; 99218; J7120; A4216; G0378; J2405; J2790

== ENCOUNTER → 2021-01-04 11:45 | Outpatient (CLI) | payer OTHER, SELFPAY ==
[2020-11-28 02:59] VITALS: BMI 43.7
== END ==
PROVIDERS: Referring Provider Obstetrics & Gynecology; Visit Provider Obstetrics & Gynecology
DX: Z39.1 Encounter for care and examination of lactating mother (principal)
CPT/HCPCS: 96158; 96159

== ENCOUNTER 2021-08-21 13:48 | Outpatient (RCR) | payer OTHER, SELFPAY | END 2021-09-18 23:59 | LOC: EMPH 13:48 | PROVIDERS: Visit Provider Family Medicine Geriatric Medicine | DX: Z03.818 Encounter for observation for suspected exposure to other biological agents ruled out (principal) | CPT/HCPCS: 87426 ==

== ENCOUNTER 2021-10-18 15:30 | Outpatient (RCR) | payer OTHER, SELFPAY | END 2021-10-19 23:59 | LOC: EMPH 15:30 | PROVIDERS: Visit Provider Family Medicine Geriatric Medicine | DX: Z03.818 Encounter for observation for suspected exposure to other biological agents ruled out (principal) | CPT/HCPCS: 87426; 87635; U0003; U0005 ==

== ENCOUNTER 2021-11-05 09:13 | Outpatient (RCR) | payer BC, SELFPAY | END 2021-11-19 23:59 | LOC: EMPH 09:13 | PROVIDERS: Visit Provider Family Medicine Geriatric Medicine | DX: Z03.818 Encounter for observation for suspected exposure to other biological agents ruled out (principal) | CPT/HCPCS: 87426 ==

== ENCOUNTER 2021-12-13 14:54 | Outpatient (RCR) | payer BC, SELFPAY | END 2021-12-17 23:59 | LOC: EMPH 14:54 | PROVIDERS: Visit Provider Family Medicine Geriatric Medicine | DX: Z03.818 Encounter for observation for suspected exposure to other biological agents ruled out (principal) | CPT/HCPCS: 87426 ==

== ENCOUNTER → 2022-06-21 | Outpatient (CLI) | payer BC, SELFPAY ==
[2022-06-21 15:28] LABS: Red Blood Cells-Urine 0 SEEN /hpf (0-5)
[2022-06-21 15:39] LABS: Color, Urine Yellow (Yellow); Glucose, Dipstick Normal (Normal); Ketone-Dipstick Negative (Negative); Leukocyte Esterase-Dipstick 25 /ul (Negative); Nitrite-Dipstick Negative (Negative); Occult Blood-Urine 10 /ul (Negative); Protein-Dipstick Negative (Negative); Specific Gravity, Urine 1.025 (1.002-1.030); Urine Bilirubin Dipstick Negative (Negative); Urine Clarity Clear (Clear); Urine Urobilinogen Normal (Normal)
[2022-06-21 15:51] LABS: Bacteria 1+ /hpf (None Seen); Squamous Epithelial Cells - UA 0-5 SEEN /hpf (5-10); White Blood Cells 0-5 SEEN /hpf (0-5); Yeast-Urine 1+ /hpf (None Seen)
[2022-06-21 15:52] LABS: Mucous, Urine 1+ /hpf (<or=2+)
== END | disposition home or self-care (01) ==
LOC: LABSPEC 15:18
PROVIDERS: Visit Provider Physician Assistant Surgical
DX: N39.0 Urinary tract infection, site not specified (principal)
CPT/HCPCS: 81001; 87086; 87088

== ENCOUNTER → 2022-09-30 | Outpatient (CLI) | payer BC, SELFPAY ==
[2022-09-30 12:43] LABS: Absolute Lymphocyte Count 1.83 X10^3/uL (0.83-4.51); Absolute Neutrophil Count 4.3 X10^3/uL (2.0-7.7); Basophil# 0.02 X10^3/uL; Basophil% 0.3 % (0-1); Eosinophil# 0.09 X10^3/uL; Eosinophils% 1.4 % (0-5); Hemoglobin 12.6 g/dL (12.0-15.0); Lymphocyte # 1.83 X10^3/ul (0.83-4.51); Lymphocyte % 27.6 % (19-41); Mean Corp Hgb Conc 31.5 g/dL (32-36); Mean Corpuscular Hgb 27.6 pg (27.0-32.0); Mean Corpuscular Volume 87.5 fL (81-99); Mean Platelet Vol. 10.6 fl (6.2-12.0); Monocyte# 0.41 X10^3/uL; Monocyte% 6.2 % (0-10); NRBC Flagged by Analyzer 0 % (0-5); Neutrophil # 4.26 X10^3/uL (2.7-7.7); Platelet Count 229 K/mm3 (150-450); RBC Distribution Width CV 13.4 % (11.6-14.6); RBC Distribution Width SD 42.9 fl (35.1-43.9); Red Blood Count 4.57 M/mm3 (4.2-5.4); White Blood Count 6.6 K/mm3 (4.4-11.0)
[2022-09-30 13:19] LABS: BUN 11 mg/dL (7-18); Creatinine, Serum 0.75 mg/dL (0.55-1.02); Glucose 104 mg/dL (74-106)
[2022-09-30 13:20] LABS: ALB/GLOB Ratio 0.8 RATIO (0.9-2.4); AST(SGOT) 14 U/L (15-37); Alanine Aminotransfer ALT/SGPT 25 U/L (13-56); Albumin, Serum 3.4 g/dL (3.2-5.0); Alkaline Phosphatase 66 U/L (45-117); Anion Gap 9 (5-15); BUN/Creat Ratio 14.7 RATIO (10-20); Calcium,Total 8.5 mg/dL (8.5-10.1); Chloride 104 mmol/L (98-107); Cholesterol 198 mg/dL (200); EST Glomerular Filtration Rate 94 mL/min (>60); Est Glom Filt Rate - Afr Amer 114 mL/min (>60); Globulin 4.1 g/dL (2.2-4.2); High Density Lipoprotein 43 mg/dL; Potassium 4.1 mmol/L (3.5-5.1); Protein, Total 7.5 g/dL (6.4-8.2); Sodium Level 137 mmol/L (136-145); Thyroid Stim Hormone (TSH) 5.15 uIU/mL (0.358-3.74); Triglycerides 202 mg/dL; Very Low Density Lipoprotein 40 mg/dL (5-40)
[2022-09-30 13:32] LABS: Hemoglobin A1c 5.6 % (3.8-5.6)
== END | disposition home or self-care (01) ==
LOC: BIMLAB 10:49
PROVIDERS: PCP Internal Medicine; Referring Provider Internal Medicine; Visit Provider Internal Medicine
DX: F41.9 Anxiety disorder, unspecified (principal); E66.01 Morbid (severe) obesity due to excess calories; Z68.41 Body mass index [BMI] 40.0-44.9, adult; F32.A Depression, unspecified
CPT/HCPCS: 36415; 80053; 80061; 83036; 84443; 85025

== ENCOUNTER → 2022-12-12 | Outpatient (CLI) | payer BC, SELFPAY ==
[2022-12-12 15:52] LABS: Thyroid Stim Hormone (TSH) 2.38 uIU/mL (0.358-3.74)
== END | disposition home or self-care (01) ==
PROVIDERS: PCP Internal Medicine; Referring Provider Internal Medicine; Visit Provider Internal Medicine
DX: E03.9 Hypothyroidism, unspecified (principal)
CPT/HCPCS: 36415; 84443

== ENCOUNTER → 2023-06-26 | Outpatient (CLI) | payer BC, SELFPAY ==
[2023-06-26 12:37] LABS: Absolute Lymphocyte Count 2.41 X10^3/uL (0.83-4.51); Absolute Neutrophil Count 4.9 X10^3/uL (2.0-7.7); Basophil# 0.03 X10^3/uL; Basophil% 0.4 % (0-1); Eosinophil# 0.12 X10^3/uL; Eosinophils% 1.5 % (0-5); Hematocrit 41.8 % (37-47); Hemoglobin 12.9 g/dL (12.0-15.0); Lymphocyte # 2.41 X10^3/ul (0.83-4.51); Lymphocyte % 30.4 % (19-41); Mean Corp Hgb Conc 30.9 g/dL (32-36); Mean Corpuscular Hgb 27.6 pg (27.0-32.0); Mean Corpuscular Volume 89.5 fL (81-99); Mean Platelet Vol. 10.5 fl (6.2-12.0); Monocyte# 0.42 X10^3/uL; Monocyte% 5.3 % (0-10); NRBC Flagged by Analyzer 0 % (0-5); Neutrophil # 4.93 X10^3/uL (2.7-7.7); Platelet Count 263 K/mm3 (150-450); RBC Distribution Width CV 13.9 % (11.6-14.6); RBC Distribution Width SD 44.7 fl (35.1-43.9); Red Blood Count 4.67 M/mm3 (4.2-5.4); White Blood Count 7.9 K/mm3 (4.4-11.0)
[2023-06-26 12:52] LABS: Vitamin D,25 Hydroxy 30.2 ng/mL
[2023-06-26 13:12] LABS: ALB/GLOB Ratio 0.9 RATIO (0.9-2.4); AST(SGOT) 14 U/L (15-37); Alanine Aminotransfer ALT/SGPT 29 U/L (13-56); Albumin, Serum 3.6 g/dL (3.2-5.0); Alkaline Phosphatase 75 U/L (45-117); Anion Gap 7 (5-15); BUN 18 mg/dL (7-18); BUN/Creat Ratio 21.6 RATIO (10-20); Calcium,Total 9.1 mg/dL (8.5-10.1); Chloride 104 mmol/L (98-107); Creatinine, Serum 0.84 mg/dL (0.55-1.02); EST Glomerular Filtration Rate 83 mL/min (>60); Est Glom Filt Rate - Afr Amer 100 mL/min (>60); Estradiol 117.6 pg/mL; Follicle Stimulating Hormone 2.8 mIU/mL; Globulin 4.1 g/dL (2.2-4.2); Glucose 97 mg/dL (74-106); Luteinizing Hormone 6.7 mIU/mL; Potassium 3.8 mmol/L (3.5-5.1); Protein, Total 7.7 g/dL (6.4-8.2); Sodium Level 135 mmol/L (136-145); Thyroid Stim Hormone (TSH) 7.51 uIU/mL (0.358-3.74)
[2023-06-26 14:45] LABS: T4 Free Direct 0.97 ng/dL (0.76-1.46)
[2023-06-26 14:50] LABS: T3 Total - Triiodothyronine 1.39 ng/mL (0.6-1.81)
[2023-06-27 15:08] LABS: Endomysial Antibody IgA Negative (Negative); Immunoglobulin A 300 mg/dL (87-352); t-Transglutaminase IgA <2 U/mL (0-3)
== END | disposition home or self-care (01) ==
LOC: BIMLAB 08:12
PROVIDERS: PCP Internal Medicine; Visit Provider Internal Medicine
DX: R14.0 Abdominal distension (gaseous) (principal); N92.6 Irregular menstruation, unspecified; R53.83 Other fatigue; E03.9 Hypothyroidism, unspecified
CPT/HCPCS: 36415; 80053; 82306; 82670; 82784; 83001; 83002; 83516; 84439; 84443; 84480; 85025; 86255

== ENCOUNTER → 2023-06-30 | Outpatient (CLI) | payer BC, SELFPAY ==
--- NOTE | 2023-06-30 07:45 | US_ITS ---
STUDY: ULTRASOUND OF THE FEMALE PELVIS - COMPLETE REASON FOR EXAM: Female, 32 years old. pain LMP: 06/01/2023 TECHNIQUE: Transabdominal and Transvaginal TECHNICAL QUALITY: Adequate. COMPARISON: None. FINDINGS: The uterus is anteverted and is in a midline position. The uterus measures 8.7 x 5.2 x 3.5 cm. There is a Nabothian cyst of the cervix. The endometrium measures 7.0 mm in thickness, and is hyperechoic. There is no demonstrated endometrial mass. There is no demonstrated myometrial mass. I.U.D. - The patient does not have an I.U.D. The right ovary is visualized. The right ovary measures 3.9 x 2.4 x 1.4 cm. There is no right ovarian cyst or ovarian mass. There is no visualized right adnexal mass or complex lesion. There is normal arterial and normal venous vascularity. The left ovary is visualized. The left ovary measures 7.8 x 6.7 x 5.6 cm. Within the left ovary there is a complex cystic structure with diffuse smooth homogeneous echoes measuring 6.9 x 5.8 x 5.2 cm. There is normal arterial and normal venous vascularity. There is no fluid in the cul-de-sac. The volume of the bladder was 426 ml. US/Pelvic (Non ) IMPRESSION: Complex cystic structure within the left ovary measuring 6.9 cm in maximum dimension with diffuse homogeneous echoes most compatible with endometrioma, differential diagnosis including atypical hemorrhagic cyst, less likely complex cystic neoplasm or infectious process not excluded. Clinical correlation recommended and if indicated, this may be further assessed with MRI. Electronically Signed: Sherri Flores MD at 19:12 EDT ,
== END | disposition home or self-care (01) ==
PROVIDERS: PCP Internal Medicine; Referring Provider Nurse Practitioner Women's Health; Visit Provider Nurse Practitioner Women's Health
DX: R10.2 Pelvic and perineal pain (principal)
CPT/HCPCS: 76830; 76856

== ENCOUNTER → 2023-09-03 | Outpatient (CLI) | payer BC, SELFPAY ==
[2023-09-03 15:47] LABS: Thyroid Stim Hormone (TSH) 0.73 uIU/mL (0.358-3.74)
== END | disposition home or self-care (01) ==
LOC: BIMLAB 13:23
PROVIDERS: PCP Internal Medicine; Referring Provider Internal Medicine; Visit Provider Internal Medicine
DX: E03.9 Hypothyroidism, unspecified (principal)
CPT/HCPCS: 36415; 84443

== ENCOUNTER → 2023-10-03 | Outpatient (CLI) | payer BC, SELFPAY ==
[2023-10-07 07:08] LABS: Chlamydia By Nucleic Acid AMP Negative (Negative); Gonococcus By Nucleic Acid AMP Negative (Negative)
[2023-10-08 21:07] LABS: HPV APTIMA, High Risk Negative (Negative)
== END | disposition home or self-care (01) ==
LOC: LABSPEC 16:55
PROVIDERS: PCP Internal Medicine; Referring Provider Registered Nurse; Visit Provider Registered Nurse
DX: Z34.90 Encounter for supervision of normal pregnancy, unspecified, unspecified trimester (principal); Z3A.00 Weeks of gestation of pregnancy not specified
CPT/HCPCS: 87086; 87088; 87491; 87591; 87624; 88175; G0145

== ENCOUNTER → 2023-10-23 | Outpatient (CLI) | payer BC, SELFPAY ==
[2023-10-23 15:18] LABS: Absolute Lymphocyte Count 1.67 X10^3/uL (0.83-4.51); Absolute Neutrophil Count 5.5 X10^3/uL (2.0-7.7); Basophil# 0.02 X10^3/uL; Basophil% 0.3 % (0-1); Eosinophil# 0.09 X10^3/uL; Eosinophils% 1.2 % (0-5); Hematocrit 38.2 % (37-47); Hemoglobin 12.2 g/dL (12.0-15.0); Lymphocyte # 1.67 X10^3/ul (0.83-4.51); Lymphocyte % 21.6 % (19-41); Mean Corp Hgb Conc 31.9 g/dL (32-36); Mean Corpuscular Hgb 27.2 pg (27.0-32.0); Mean Corpuscular Volume 85.3 fL (81-99); Monocyte# 0.47 X10^3/uL; Monocyte% 6.1 % (0-10); NRBC Flagged by Analyzer 0 % (0-5); Neutrophil # 5.46 X10^3/uL (2.7-7.7); Neutrophil % 70.4 % (47-70); Platelet Count 228 K/mm3 (150-450); RBC Distribution Width CV 13.7 % (11.6-14.6); RBC Distribution Width SD 42.5 fl (35.1-43.9); Red Blood Count 4.48 M/mm3 (4.2-5.4); White Blood Count 7.7 K/mm3 (4.4-11.0)
[2023-10-23 15:22] LABS: NATERA MAILED SPECIMEN
[2023-10-23 15:43] LABS: Hemoglobin A1c 5.2 % (3.8-5.6)
[2023-10-23 15:57] LABS: Free T3 2.2 pg/mL (2.18-3.98); T4 Free Direct 1.09 ng/dL (0.76-1.46); Thyroid Stim Hormone (TSH) 1.11 uIU/mL (0.358-3.74)
[2023-10-23 16:46] LABS: HIV - WCH Non-Reactive (Nonreactive); Hepatitis B Surface Antigen Non-Reactive (Nonreactive); Hepatitis C Antibody Non-Reactive (Nonreactive); Rubella IgG Reactive (Nonreactive); Syphilis Antibodies Non-reactive
== END | disposition home or self-care (01) ==
PROVIDERS: PCP Internal Medicine; Referring Provider Registered Nurse; Visit Provider Registered Nurse
DX: O99.281 Endocrine, nutritional and metabolic diseases complicating pregnancy, first trimester (principal); E03.9 Hypothyroidism, unspecified; Z3A.00 Weeks of gestation of pregnancy not specified
CPT/HCPCS: 83036; 84439; 84443; 84481; 85025; 86703; 86762; 86780; 86803; 86850; 86900; 86901; 87340

== ENCOUNTER → 2024-01-12 | Outpatient (CLI) | payer BC, SELFPAY ==
[2024-01-12 13:23] LABS: Thyroid Stim Hormone (TSH) 1.08 uIU/mL (0.358-3.74)
== END | disposition home or self-care (01) ==
LOC: LAB 11:35
PROVIDERS: PCP Internal Medicine; Referring Provider Physician Assistant; Visit Provider Physician Assistant
DX: E03.9 Hypothyroidism, unspecified (principal)
CPT/HCPCS: 36415; 84443

== ENCOUNTER → 2024-02-19 | Outpatient (CLI) | payer BC, SELFPAY ==
[2024-02-19 14:17] LABS: Absolute Lymphocyte Count 1.12 X10^3/uL (0.83-4.51); Absolute Neutrophil Count 6.4 X10^3/uL (2.0-7.7); Basophil# 0.01 X10^3/uL; Basophil% 0.1 % (0-1); Eosinophil# 0.06 X10^3/uL; Eosinophils% 0.7 % (0-5); Hematocrit 32.6 % (37-47); Hemoglobin 10.4 g/dL (12.0-15.0); Lymphocyte # 1.12 X10^3/ul (0.83-4.51); Mean Corp Hgb Conc 31.9 g/dL (32-36); Mean Corpuscular Hgb 27.7 pg (27.0-32.0); Mean Corpuscular Volume 86.9 fL (81-99); Mean Platelet Vol. 9.9 fl (6.2-12.0); Monocyte# 0.35 X10^3/uL; Monocyte% 4.4 % (0-10); NRBC Flagged by Analyzer 0 % (0-5); Neutrophil # 6.43 X10^3/uL (2.7-7.7); Neutrophil % 80.3 % (47-70); Platelet Count 223 K/mm3 (150-450); RBC Distribution Width CV 15.3 % (11.6-14.6); RBC Distribution Width SD 48.1 fl (35.1-43.9); Red Blood Count 3.75 M/mm3 (4.2-5.4)
[2024-02-19 14:24] LABS: Glucose Challenge Gest 1H 50g 184 mg/dL (70-140)
[2024-02-19 14:58] LABS: HIV - WCH Non-Reactive (Nonreactive); Syphilis Antibodies Non-reactive
== END | disposition home or self-care (01) ==
LOC: PAVLAB 13:51
PROVIDERS: Registered Nurse; PCP Internal Medicine; Referring Provider Advanced Practice Midwife; Visit Provider Advanced Practice Midwife
DX: Z34.90 Encounter for supervision of normal pregnancy, unspecified, unspecified trimester (principal); Z3A.00 Weeks of gestation of pregnancy not specified
CPT/HCPCS: 36415; 82950; 85025; 86703; 86780; 86850; 86900; 86901

== ENCOUNTER 2024-03-03 01:59 | Emergency (ER) | payer BC, SELFPAY ==
[2024-03-03 02:04] VITALS: BP 135/89; PULSE 101; RESP 16; TEMP 37.1; O2SAT 98; BMI 40.3
--- NOTE | 2024-03-03 02:18 | RAD_ITS ---
EXAM: XR CHEST, 2 VIEWS CLINICAL INDICATION: sob, poss aspiration TECHNIQUE: Frontal and lateral views of the chest. COMPARISON: No relevant prior studies available. FINDINGS: LUNGS AND PLEURAL SPACES: Unremarkable. No consolidation or edema. No pneumothorax. No effusion. HEART: Unremarkable. Cardiac silhouette not enlarged. MEDIASTINUM: Central airways and mediastinal contour are unremarkable. BONES/JOINTS: Unremarkable. No acute fracture. SOFT TISSUES: Unremarkable. RAD/Chest PA and Lateral IMPRESSION: No radiographic evidence of acute cardiopulmonary disease. Electronically Signed: Ran Quinn MD at 3:08 EDT ,
--- NOTE | 2024-03-03 02:20 | ED.VIS.DYS ---
HPI History of Present Illness Chief Complaint: General Illness Informant: patient Narrative Narrative: 33-year-old female states she is 30 weeks , she woke up in the middle the night, states she has a lot of reflux and felt like she was having an attack of reflux, she felt like it came up and she may have vomited a little and aspirated and could not breathe. She states she was freaking out because she felt like she could not breathe. She has aspirated before and states this felt like that. She states that this episode last for a couple minutes and then she was fine. She took a lot of Tums and now the reflux feels better. She denies any chest pain or dyspnea right now, states she overall feels better and is here to be evaluated. She states she is also worried about the baby. She felt to move a little bit ago. She denies any vaginal bleeding, abdominal pain, or water breaking/vaginal discharge. [facility] Medical History Impacted cerumen of both ears Acute otitis externa of left ear Acute otitis media, left Pelvic pain depression Gestational diabetes Family history of cleft palate Anxiety Home Medications ?Medication ?Instructions ?Recorded ?Last Taken ?Type famotidine 40 mg tablet (Pepcid) 40 mg PO DAILY 06/21/22 Unknown History multivit-min no.71-iron fum 28 1 cap PO DAILY 09/26/23 Unknown History mg-folate no.1 1 mg-dha 300 mg capsule ([facility]) levothyroxine 150 mcg tablet 150 mcg PO DAILY #30 tabs 12/31/23 Unknown Rx (Synthroid) sertraline 50 mg tablet 75 mg (1.5 x 50 mg) PO QDAY #135 01/02/24 Unknown Rx tabs blood sugar diagnostic (Blood #120 ea 02/19/24 Unknown Rx Glucose Test strips) blood-glucose meter #1 ea 02/19/24 Unknown Rx lancets #200 ea 02/19/24 Unknown Rx vit no.95-ferrous 1 tab PO DAILY 03/03/24 Unknown History fumarate 28 mg-folic acid 800 mcg tablet () Allergy/AdvReac Type Severity Reaction Status Date / Time penicillin G Allergy Mild Rash Verified 03/03/24 02:04 cefaclor (From [facility]) Allergy Rash Verified 03/03/24 02:04 Family History Mother Diabetes Hypertension Breast cancer, Onset Age: 55 Grandmother Diabetes CVA (cerebral vascular accident) Grandfather Diabetes Grandmother Heart disease Grandfather Heart disease Father Thyroid disorder Sister Thyroid disorder Surgical History History of wisdom tooth extraction, class II edentulism Social History adopted: No household members: spouse and children housing: house number of children: 1 current occupational status: employed 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 current occupational exposures/hazards: No pets and animals: Yes pets and animals: dog(s) history of recent travel: No sexually active: Yes Smoking Status: Never smoker Electronic Cigarette Use: not used alcohol intake: current alcohol intake frequency: holidays/special occasions only details: not while substance use type: does not use well-balanced diet: daily or most days caffeine: Yes Type: tea Number of servings: 1 eating out: 1-3 times/week during the past year weight has: remained stable what type of physical activity do you participate in: none macrina/sabianist: None seatbelt use: always do you feel safe at home: Yes additional social history: [facility] ROS ED Constitutional Constitutional ED: Denies chills or fever(s) Cardiovascular Cardiovascular: Denies chest pain or syncope Respiratory/Chest Respiratory/Chest: Reports dyspnea; Denies cough Gastrointestinal Gastrointestinal: Denies abdominal pain Genitourinary Genitourinary ED: Denies vaginal bleeding or vaginal discharge Psychiatric Psychiatric: Reports anxiety; Denies suicidal ideation EXAM Physical Exam Const Vital Signs: 03/03/24 02:04 03/03/24 02:09 03/03/24 02:11 Temperature 98.7 F Temperature Source Oral Pulse Rate 101 H Respiratory Rate 16 Respiratory Effort Short of Breath Short of Breath Respiratory Depth Normal Respiratory Pattern Normal Normal Blood Pressure 135/89 H Blood Pressure Mean 104 Pulse Ox 98 Oxygen Delivery Method Room Air Room Air Positive well nourished and well developed General Appearance ED: well developed and NAD HEENT Reports moist mucous membranes normocephalic and atraumatic Eyes PERRL and EOMs intact bilaterally Neck full ROM and supple Resp normal respiratory effort and clear to auscultation bilaterally Cardio regular rate, regular rhythm and no murmurs GI non-tender and non-distended Auscultation: normoactive bowel sounds Palpation: soft Speculum Exam - Vagina: Negative for vaginal bleeding or vaginal discharge Back/Spine no CVA tenderness General Back: other FROM Extremity normal to inspection Neuro oriented x3, CN's II-XII intact bilaterally and no sensory deficits noted Sensorium / Orientation: awake and alert Motor Exam: strength 5/5 throughout Psych Mood & Affect: anxious and tearful Skin no rashes or lesions noted and no wounds MDM MDM MDM Narrative Medical decision making narrative: 2 view chest x-ray was obtained, on my interpretation it is normal, and negative for aspiration pneumonitis. However it is conceded as I discussed with the patient that it is possible to develop radiopaque abnormalities with aspiration in a delayed fashion. We observed her for about an hour here in the ER and she developed no hypoxemia or dyspnea and she was doing okay. She has a resting heart rate around 100, normal during . Her pulse ox is 98-99% on room air. Given the scenario I do not think she needs to be worked up for pulmonary embolus. It is 3 AM and she is here with her and a small child. I advised her that even if she did aspirate a small amount, she will be unlikely to be severely symptomatic from it, and would not require antibiotics even if that were the case. If she does get significantly worse, she can come back or check her pulse ox at home, and we would be happy to reevaluate her but I am comfortable discharging her home and she is comfortable going home at this time. heart tones checked and they are 150. She is reassured. She is wondering if she can take anything else for reflux. PPIs have a disclaimer on them that they may be teratogenic. I recommend her taking Pepcid but increasing it to twice daily. Discharge Plan Triage Chief Complaint: General Illness Other Complaint: Abd Pain Nausea/Vomiting Shortness of Breath ED Provider: Scott Ramirez Dx/Rx/DC Orders Clinical Impression: Gastroesophageal reflux during in third trimester, antepartum, Acute dyspnea Instructions: ED GERD (Adult) Prescriptions: No Action famotidine [Pepcid] 40 mg tablet 40 mg PO DAILY [facility] 28-1-300 mg capsule 1 cap PO DAILY PNV cmb#95-ferrous fumarate-FA [] 28 mg iron- 800 mcg tablet 1 tab PO DAILY levothyroxine [Synthroid] 150 mcg tablet 150 mcg PO DAILY Qty: 30 1RF sertraline 50 mg tablet 75 mg PO QDAY Qty: 135 0RF (DME) blood-glucose meter Misc See Rx Instructions .MEDSUPPLY Qty: 1 0RF Rx Instructions: As directed- Test fasting and 2 hours after meals (DME) Blood Glucose Test Strip See Rx Instructions .MEDSUPPLY Qty: 120 5RF Rx Instructions: As directed-fasting & 2 hr post meals (DME) lancets Misc See Rx Instructions .MEDSUPPLY Qty: 200 5RF Rx Instructions: As directed-fasting & 2 hr post meals Primary Care Provider: Xiomara Mclaughlin Referrals: Xiomara Mclaughlin MD [Primary Care Provider] - (or your OB to discuss reflux options if not improving with taking pepcid twice daily) Activity Restrictions/Additional Instructions: If you end up having recurrent dyspnea/out of breath, return to the ER Print Language: Luxembourgish Disposition Disposition: Home, Self Care
[2024-03-03 03:22] VITALS: BP 119/78; PULSE 94; RESP 16; TEMP 36.1; O2SAT 97
== END 2024-03-03 03:24 | disposition home or self-care (01) ==
PROVIDERS: Emergency Provider Emergency Medicine; PCP Internal Medicine; Visit Provider Emergency Medicine
DX: O99.613 Diseases of the digestive system complicating pregnancy, third trimester (principal); K21.9 Gastro-esophageal reflux disease without esophagitis; R06.00 Dyspnea, unspecified; O99.891 Other specified diseases and conditions complicating pregnancy; Z3A.30 30 weeks gestation of pregnancy; Z79.899 Other long term (current) drug therapy
CPT/HCPCS: 71046; 99285

== ENCOUNTER 2024-03-18 10:00 | Outpatient (RCR) | payer BC, SELFPAY | END 2024-03-19 23:59 | LOC: DC 10:00 | PROVIDERS: PCP Internal Medicine; Referring Provider Obstetrics & Gynecology; Visit Provider Obstetrics & Gynecology | DX: Z71.3 Dietary counseling and surveillance (principal); O24.419 Gestational diabetes mellitus in pregnancy, unspecified control | CPT/HCPCS: 97802; 97803 ==

== ENCOUNTER 2024-03-30 11:27 | Outpatient (CLI) | payer BC, SELFPAY ==
[2024-03-30 11:41] VITALS: BMI 47.9
[2024-03-30 11:47] VITALS: RESP 16; TEMP 36.1
[2024-03-30 11:48] VITALS: BP 137/80; PULSE 97
[2024-03-30 11:49] VITALS: PULSE 97; O2SAT 97
--- NOTE | 2024-03-30 11:59 | US_ITS ---
STUDY: ABDOMINAL ULTRASOUND - RIGHT UPPER QUADRANT REASON FOR VISIT: Female, 33 years old right upper quad pain -- Also appendix us; pt is 34.3 weeks TECHNIQUE: Ultrasound evaluation of the right upper quadrant was performed with real-time and static michel-scale imaging. TECHNICAL QUALITY: Adequate. COMPARISON: None. FINDINGS: Liver: The liver is enlarged and measures 21.4 cm. There is normal echogenicity of the liver. The bile ducts are within normal limits. There is hepatic color flow. The direction of portal flow is hepatopetal. There is no demonstrated mass lesion. Gallbladder: Normal distended gallbladder. The gallbladder wall measures 2 mm. There is a negative sonographic Buckley''s sign. There is no pericholecystic fluid. There are multiple echogenic structures within the gallbladder, consistent with multiple gallstones. Common Bile Duct (C.B.D.): The common bile duct measures 5 mm. Pancreas: Normal size of the head, body and tail of the pancreas. There is normal echogenicity of the pancreas. There is no demonstrated pancreatic mass or cyst. Right Kidney: Normal size of the right kidney. The right kidney measures 12.4 cm x 6.2 cm x 5.3 cm. Normal renal cortex. The right cortex measures 2.0 cm. There is no demonstrated renal mass or cyst. There is no right hydronephrosis. US/Gallbladder IMPRESSION: Hepatomegaly. Multiple gallstones. Electronically Signed: Rodrigo Madera MD at 13:25 EDT ,
[2024-03-30] MEDS: Lactated Ringers 1,000 ML 100 ML IV (12:00)
[2024-03-30 12:05] VITALS: BP 136/68; PULSE 92
[2024-03-30 12:20] LABS: Hematocrit 36.1 % (37-47); Hemoglobin 11.5 g/dL (12.0-15.0); Mean Corp Hgb Conc 31.9 g/dL (32-36); Mean Platelet Vol. 10.4 fl (6.2-12.0); Platelet Count 238 K/mm3 (150-450); RBC Distribution Width CV 16.1 % (11.6-14.6); RBC Distribution Width SD 51.7 fl (35.1-43.9); White Blood Count 7.6 K/mm3 (4.4-11.0)
[2024-03-30 12:21] LABS: Color, Urine Yellow (Yellow); Glucose, Dipstick Normal (Normal); Ketone-Dipstick Negative (Negative); Leukocyte Esterase-Dipstick Negative /ul (Negative); Nitrite-Dipstick Negative (Negative); Occult Blood-Urine Negative /ul (Negative); Protein-Dipstick Negative (Negative); Urine Bilirubin Dipstick Negative (Negative); Urine Clarity Sl. Cloudy (Clear); Urine Urobilinogen Normal (Normal); Urine pH 6.5 (5.0 - 8.0)
[2024-03-30 12:43] LABS: Protein, Urine (Random) 12.6 mg/dL (<11.9); Protein:Creat Ratio 167 mg/g CRE (0-200)
[2024-03-30 12:52] LABS: AST(SGOT) 32 U/L (15-37); Alanine Aminotransfer ALT/SGPT 53 U/L (13-56); Creatinine, Serum 0.54 mg/dL (0.55-1.02); EST Glomerular Filtration Rate 136 mL/min (>60); Est Glom Filt Rate - Afr Amer 165 mL/min (>60); Estimated Creatinine Clearance 178.18 ml/min; Uric Acid 3.2 mg/dL (2.6-6.0)
--- NOTE | 2024-03-30 15:01 | OB.TRI.HP_ITS ---
HPI - General HPI Narrative MEL JUARES, is a 33 y/o @ 34 weeks 3 days who presents to L&D with acute severe onset of RUQ pain. She denies fevers, chills, nausea, vomiting, diarrhea, or dysuria. Ultrasound and blood work were ordered. ultrasound showed a 12 cm fatty liver and small gallstones without wall thickening. Dr. Mendez was consulted and agrees that this is not a picture of acute cholecystitis or acute fatty liver. The patient also denies headache or visual changes. SHe is obese and has gestational dm. Maternal Data Information RADHA Calculator Estimated Delivery Date Method Current WG Current Estimate 05/08/24 LMP (Certain) 34w 3d [facility] Medical History Impacted cerumen of both ears Acute otitis externa of left ear Acute otitis media, left Pelvic pain depression Gestational diabetes Family history of cleft palate Anxiety Home Medications ?Medication ?Instructions ?Recorded ?Last Taken ?Type famotidine 40 mg tablet (Pepcid) 40 mg PO DAILY 06/21/22 03/30/24 History multivit-min no.71-iron fum 28 1 cap PO DAILY 09/26/23 03/29/24 History mg-folate no.1 1 mg-dha 300 mg capsule (PNV-Sophia) blood sugar diagnostic (Blood #120 ea 02/19/24 Unknown Rx Glucose Test strips) blood-glucose meter #1 ea 02/19/24 Unknown Rx lancets #200 ea 02/19/24 Unknown Rx vit no.95-ferrous 1 tab PO DAILY 03/03/24 03/29/24 History fumarate 28 mg-folic acid 800 mcg tablet () levothyroxine 150 mcg tablet 150 mcg PO DAILY #30 tabs 03/04/24 Unknown Rx (Synthroid) pen needle, diabetic 32 gauge x #100 ea 03/13/24 Unknown Rx (BD Ultra-Fine Sultana Pen Needle) insulin degludec 100 unit/mL (3 28 unit subcut DAILY 03/17/24 03/29/24 History mL) subcutaneous pen (Tresiba FlexTouch U-100 insulin) insulin lispro 100 unit/mL 5 unit subcut TID 03/17/24 03/30/24 History subcutaneous pen (Humalog KwikPen (U-100) Insulin) sertraline 50 mg tablet 75 mg (1.5 x 50 mg) PO QDAY #135 03/23/24 Unknown Rx tabs clindamycin HCl 300 mg capsule 300 mg PO TID #30 caps 03/29/24 03/29/24 Rx ferrous sulfate 325 mg (65 mg 325 mg PO QODAY 03/30/24 03/30/24 History iron) tablet (Feosol) Allergy/AdvReac Type Severity Reaction Status Date / Time penicillin G Allergy Mild Rash Verified 03/30/24 12:04 cefaclor (From [facility]) Allergy Rash Verified 03/30/24 12:04 Family History Mother Diabetes Hypertension Breast cancer, Onset Age: 55 Grandmother Diabetes CVA (cerebral vascular accident) Grandfather Diabetes Grandmother Heart disease Grandfather Heart disease Father Thyroid disorder Sister Thyroid disorder Surgical History History of wisdom tooth extraction, class II edentulism Social History adopted: No household members: spouse and children housing: house number of children: 1 current occupational status: employed 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 current occupational exposures/hazards: No pets and animals: Yes pets and animals: dog(s) history of recent travel: No sexually active: Yes Smoking Status: Never smoker Electronic Cigarette Use: not used alcohol intake: current alcohol intake frequency: holidays/special occasions only details: not while substance use type: does not use well-balanced diet: daily or most days caffeine: Yes Type: tea Number of servings: 1 eating out: 1-3 times/week during the past year weight has: remained stable what type of physical activity do you participate in: none macrina/yarsanism: None seatbelt use: always do you feel safe at home: Yes additional social history: [facility] History 2 Elective abortions Hx Para 1 Spontaneous abortions Hx # Term Pregnancies 1 Ectopic pregnancies Hx # Pregnancies Multiple births # of living children 1 Past Pregnancies Del. Date Name GA/Weeks Outcome Route Bth Weight Gen Labor [facility]28/20 Deb 37 live - full term Female [employer] Dustin Delivery Date: 11/28/20 Last Updated by: Debby Owens 37 wk SROM GDMA2 Visit Details Expected Delivery Route/Plan Labor Preferences- CB/BF classes: no labor support person: Preet labor intervention preferences: [] pain management options preferred: epidural cut cord/dad catch: maybe cord : yes PP control planned: discussed discussed possible routes of delivery and associated risks: [] special requests: [] Plans Covid status: [] Flu vaccine: [] Tdap vaccine: given Rhogam: given 02.19.24 LARC form signed: 02/19/24 Problem list reviewed and updated with the most current plan of care details and appropriate orders placed. Relevant counseling for the gestational age provided. Continue routine care and follow up unless otherwise noted in visit notes/problem list details OB Flowsheet Initial Weight: 254 lb Date -?-?-?-?-?-?-?-?-?-?-?-?- EGA Weight BP Urine Prot -?-?-?-?-?-?-?-?-?-?-?-?- Glucose FHR FuHt Pres Dilation -?-?-?-?-?-?-?-?-?-?-?-?- Effaced St Visit Note 10/03/23 -?-?-?-?-?-?-?-?-?-?-?-?- 8w 6d 254 lb 8 oz (+8 oz) 131/84 -?-?-?-?-?-?-?-?-?-?-?-?- 180 -?-?-?-?-?-?-?-?-?-?-?-?- LC- CRL con with LMP. nipt accepted. hbga1c for hx of gest DM. 10/28/23 -?-?-?-?-?-?-?-?-?-?-?-?- 12w 3d 255 lb 2 oz (+1 lb 2 oz) 146/84 Negative -?-?-?-?-?-?-?-?-?-?-?-?- Negative -?-?-?-?-?-?-?-?-?-?-?-?- KW-no vb/pablo schwartz US ordered today. labs reviewed. handheld US for FHT-strong heart rate seen 11/27/23 -?-?-?-?-?-?-?-?-?-?-?-?- 16w 5d 256 lb 6 oz (+2 lb 6 oz) 132/84 Negative -?-?-?-?-?-?-?-?-?-?-?-?- Negative 161 -?-?-?-?-?-?-?-?-?-?-?-?- MH-No VB or cram ping. Nausea resolved. Denies concerns 12/23/23 -?-?-?-?-?-?-?-?-?-?-?-?- 20w 3d 255 lb 6 oz (+1 lb 6 oz) 136/89 Negative -?-?-?-?-?-?-?-?-?-?-?-?- Negative 150 -?-?-?-?-?-?-?-?-?-?-?-?- JV- rtp structur es of anatomy scheduled next week. work restrictions reviewed. 01/22/24 -?-?-?-?-?-?-?-?-?-?-?-?- 24w 5d 258 lb 2 oz (+4 lb 2 oz) 136/85 Negative -?-?-?-?-?-?-?-?-?-?-?-?- Negative 160 -?-?-?-?-?-?-?-?-?-?-?-?- LC- no vb/ctx/lo f. good fm. counseling encouraged for depression/relationship. counseling sheet given. growth scans scheduled with [facility]. anatomy complete. 02/19/24 -?-?-?-?-?-?-?-?-?-?-?-?- 28w 5d 257 lb (+3 lb) 139/88 Negative -?-?-?-?-?-?-?-?-?-?-?-?- Negative 150 29 -?-?-?-?-?-?-?-?-?-?-?-?- SM- no vb lof go od fm n oregular ctx co some round ligament pain, reviewed diabetes diagnosis and anemia 03/02/24 -?-?-?-?-?-?-?-?-?-?-?-?- 30w 3d 257 lb 6 oz (+3 lb 6 oz) 122/82 Negative -?-?-?-?-?-?-?-?-?-?-?-?- Negative 152 33 -?-?-?-?-?-?-?-?-?-?-?-?- MH-No VB, LOF. G ood FM. Growth US is 03/11 and doing Q4w. Recent dx anemia and started FE daily. Also GDM, has been checking almost 1 week. States readings are high. Only has yesterdays and FBS 109. 1 of 3 others elevated and this AM FBS 116. KRYSTYNA ref to Juan Jose as was on insulin last , wkly BPP at 32 wk. Dietitian 02/02. Discussed with SM 03/17/24 -?-?-?-?-?-?-?-?-?-?-?-?- 32w 4d 258 lb (+4 lb) 130/88 Negative -?-?-?-?-?-?-?-?-?-?-?-?- Negative 140 35 -?-?-?-?-?-?-?-?-?-?-?-?- JV- growth scan shows ac >99th% and overall 85th. fasting levels uncontrolled but working with MFM (105-107) has weekly bpps and monthly growths with mfm. bpp's start at 34 weeks. Likely will need delivered at 38 weeks. 03/19/24 -?-?-?-?-?-?-?-?-?-?-?-?- 32w 6d 262 lb 4 oz (+8 lb 4 oz) 121/79 Negative -?-?-?-?-?-?-?-?-?-?-?-?- Negative 145 -?-?-?-?-?-?-?-?-?-?-?-?- KW- NST only. re active. had increase of insulin yesterday and fasting this am was better. 03/22/24 -?-?-?-?-?-?-?-?-?-?-?-?- 33w 2d 262 lb 6 oz (+8 lb 6 oz) 124/76 Negative -?-?-?-?-?-?-?-?-?-?-?-?- Negative 140 -?-?-?-?-?-?-?-?-?-?-?-?- JV- NST reactive . glucose levels normal. on same dose of insulin as last visit. feeling some minor contractions. JV- NST reactive. glucose le vels normal. on same dose of insulin as last visit. feeling some minor contractions. last scan from 03/07 showed AC . 99th%. rpt scan in 2-3 weeks 03/25/24 -?-?-?-?-?-?-?-?-?-?-?-?- 33w 5d 262 lb (+8 lb) 136/85 -?-?-?-?-?-?-?-?-?-?-?-?- 140 -?-?-?-?-?-?-?-?-?-?-?-?- JV- some elevate d fasting levels. but thinks this is due to staying up at night with her baby. nst reactive. rto on Friday for next nst/office visit. 03/29/24 -?-?-?-?-?-?-?-?-?-?-?-?- 34w 2d 262 lb 4 oz (+8 lb 4 oz) 139/87 Negative -?-?-?-?-?-?-?-?-?-?-?-?- Negative 140 -?-?-?-?-?-?-?-?-?-?-?-?- SM- co bilateral vulvar bumps and pain- folliculitis cellulitis seen, reviewed criteria for drainage- start warm compresses and antibiotics. 03/30/24 -?-?-?-?-?-?-?-?-?-?-?-?- 34w 3d 261 lb 4 oz (+7 lb 4 oz) 127/85 Negative -?-?-?-?-?-?-?-?-?-?-?-?- Negative 155 38 -?-?-?-?-?-?-?-?-?-?-?-?- KW- no vb/lof/ct x. good fm. work in for RUQ pain. onset 1800 yesterday. tylenol does not help. headache yesterday and went away after tylenol. to for work up ROS Constitutional Constitutional: Reports systems reviewed and no addt'l complaints, except as documented Gastrointestinal Gastrointestinal: Denies bloating, constipation, cramping, diarrhea, nausea or vomiting Genitourinary Genitourinary: Reports other Details: Denies vaginal odor, vaginal bleeding, or vaginal discharge ; Denies difficulty urinating or flank pain Physical Exam HEENT normocephalic Resp normal respiratory effort and normal air movement no CVA tenderness Extremity normal to inspection General Extremity: edema bilateral (trace ) NST FHR Rate Baby A Baseline: 140 Variability:: Moderate Accelerations:: 15 x 15 Decelerations:: None NST Reactive:: Yes FHR Category:: Category I Assessment & Plan (1) Fatty liver disease, nonalcoholic: PLAN: will try percocet + zofran brat diet discussed for the next few days suspect growing baby is pressing on her liver causing the discomfort. She does not appear unwell or in pain during her exam. ok to dc to home after medication given for pain. (2) Vulvar cellulitis: COMMENT: clindamycin, warm compresses, reviewed criteria for fu and drainage PRN (3) Anemia affecting in third trimester: COMMENT: taking FE (4) Gestational diabetes: QUALIFIERS: Gestational diabetes mellitus control: unspecified Trimester: third trimester Qualified Code(s): O24.419 - Gestational diabetes mellitus in , unspecified control COMMENT: Insulin started. needs 32 and 36 week growth US and 2xweekly NSTs at 32 weeks -uncontrolled DM. may need delivered at 38 weeks if continues to be uncontrolled. currently on (03/17/24) is on 20 of NPH at bedtime (5) Obesity affecting , antepartum: COMMENT: growth us q4 weeks and weekly testing at 34 weeks (6) FH: breast cancer: COMMENT: Mother at 55 (7) Hypothyroidism: QUALIFIERS: Hypothyroidism type: unspecified Qualified Code(s): E03.9 - Hypothyroidism, unspecified COMMENT: tsh/free t4 with nob/NL and q trimester, managed by dr. biswas (8) Rh negative status during : QUALIFIERS: Trimester: second trimester Qualified Code(s): O26.892 - Other specified related conditions, second trimester; Z67.91 - Unspecified blood type, Rh negative COMMENT: A neg. Rhogam PRN & 28 weeks (9) Supervision of high risk , antepartum: COMMENT: [id number], RADHA 05/08/24 boy PC Deb Preet (10) : QUALIFIERS: Weeks of gestation: 34 weeks Qualified Code(s): Z3A.34 - 34 weeks gestation of COMMENT: nl anatomy, discussed genetic & carrier testing, accepts, NIPT low risk (11) Depression: QUALIFIERS: Depression Type: unspecified Qualified Code(s): F32.A - Depression, unspecified COMMENT: stable, on zoloft (12) Anxiety: COMMENT: encouraged counseling. 10/03 stable Charges/Coding Multi Select Codes Visit Charges Office Visit/Consults: 96789 OV L3 Est 20min Urinary/Genital Urinary/Genital CPT Codes: 72522-04 non-stress test Interp
[2024-03-30] MEDS: oxyCODONE 5 MG Tablet 10 MG PO (15:04)
[2024-03-30] MEDS: Ondansetron 4 MG/2 ML Vial IV (15:04)
== END 2024-03-30 16:00 | disposition home or self-care (01) ==
LOC: WPOUT 11:28 → WP 11:29
PROVIDERS: PCP Internal Medicine; Referring Provider Advanced Practice Midwife; Visit Provider Advanced Practice Midwife
DX: O24.419 Gestational diabetes mellitus in pregnancy, unspecified control (principal); O26.613 Liver and biliary tract disorders in pregnancy, third trimester; K76.0 Fatty (change of) liver, not elsewhere classified; Z3A.34 34 weeks gestation of pregnancy; O23.593 Infection of other part of genital tract in pregnancy, third trimester; O99.013 Anemia complicating pregnancy, third trimester; O99.213 Obesity complicating pregnancy, third trimester; O99.283 Endocrine, nutritional and metabolic diseases complicating pregnancy, third trimester; E03.9 Hypothyroidism, unspecified; O26.893 Other specified pregnancy related conditions, third trimester; Z67.91 Unspecified blood type, Rh negative; O99.343 Other mental disorders complicating pregnancy, third trimester; F32.A Depression, unspecified; F41.9 Anxiety disorder, unspecified
CPT/HCPCS: 96374; 96361; 36415; 59025; 59050; 76705; 81002; 82565; 82570; 84156; 84450; 84460; 84550; 85027; 99221; J7120; G0378; J2405

== ENCOUNTER 2024-04-03 02:50 | Inpatient (IN) | payer BC, SELFPAY ==
[2024-04-03] VITALS (47 sets, daily range): BP systolic 132–177; BP diastolic 58–97; PULSE 86–110; RESP 16–18; TEMP 36–37; O2SAT 83–100; BMI 48.3
[2024-04-03 02:46] LABS: ROM Internal Control Test YES-OK TO RESULT pt. (Internal QC)
[2024-04-03 02:47] LABS: ROM Patient Test POSITIVE (Negative); Record Kit Lot#, ROM+ K1866
[2024-04-03] MEDS: Lactated Ringers 1,000 ML 50 ML IV (03:20)
[2024-04-03 03:54] LABS: Absolute Lymphocyte Count 1.55 X10^3/uL (0.83-4.51); Absolute Neutrophil Count 7.8 X10^3/uL (2.0-7.7); Basophil# 0.03 X10^3/uL; Basophil% 0.3 % (0-1); Eosinophil# 0.05 X10^3/uL; Eosinophils% 0.5 % (0-5); Lymphocyte # 1.55 X10^3/ul (0.83-4.51); Lymphocyte % 15.3 % (19-41); Mean Corp Hgb Conc 31.4 g/dL (32-36); Mean Corpuscular Hgb 28.1 pg (27.0-32.0); Mean Corpuscular Volume 89.3 fL (81-99); Mean Platelet Vol. 11.2 fl (6.2-12.0); Monocyte# 0.63 X10^3/uL; Monocyte% 6.2 % (0-10); NRBC Flagged by Analyzer 0.2 % (0-5); Neutrophil # 7.82 X10^3/uL (2.7-7.7); Neutrophil % 77.1 % (47-70); Platelet Count 255 K/mm3 (150-450); RBC Distribution Width CV 16.4 % (11.6-14.6); RBC Distribution Width SD 52.8 fl (35.1-43.9); Red Blood Count 3.92 M/mm3 (4.2-5.4); White Blood Count 10.1 K/mm3 (4.4-11.0)
[2024-04-03 04:01] LABS: International Normalized Ratio 1.1; Prothrombin Time (Protime)PT. 14.6 SECONDS (11.7-14.9)
[2024-04-03 04:02] LABS: Partial Thromboplast Time 23.4 Seconds (24.1-36.2)
[2024-04-03 04:03] LABS: Bedside Glucose 88 mg/dL (74-106)
[2024-04-03 04:20] LABS: AST(SGOT) 54 U/L (15-37); Alanine Aminotransfer ALT/SGPT 79 U/L (13-56); Creatinine, Serum 0.66 mg/dL (0.55-1.02); EST Glomerular Filtration Rate 107 mL/min (>60); Est Glom Filt Rate - Afr Amer 130 mL/min (>60); Estimated Creatinine Clearance 146.53 ml/min; LDH 233 U/L (84-246); Uric Acid 3.7 mg/dL (2.6-6.0)
[2024-04-03 04:22] LABS: Protein, Urine (Random) 59.6 mg/dL (<11.9); Protein:Creat Ratio 319 mg/g CRE (0-200)
[2024-04-03] MEDS: Clindamycin 900 MG/50 ML BAG 75 MG IV (04:22)
[2024-04-03 04:38] LABS: Syphilis Antibodies Non-reactive
[2024-04-03 04:48] LABS: Bedside Glucose 94 mg/dL (74-106)
[2024-04-03] MEDS: Lactated Ringers 1,000 ML 999 ML IV (05:38)
[2024-04-03 05:59] LABS: Bedside Glucose 86 mg/dL (74-106)
[2024-04-03] MEDS: Oxytocin 15 Units/NS 250ml 15 UNITS/250 ML IV.SOLN 334 UNITS IV (07:24)
--- NOTE | 2024-04-03 07:48 | HP.PCM.OB_ITS ---
HPI - General General Date of Admission: 04/03/24 Date of Service: 04/03/24 HPI Narrative MEL JUARES, is a 33 F 35.0 weeks gestation who presents to unit with SROM at 0010 on 04/03. Clear fluid. complicated by GDM. Maternal Data Information RADHA Calculator Estimated Delivery Date Method Current WG Current Estimate 05/08/24 LMP (Certain) 35w 0d Final RADHA: 05/08/24 Final RADHA Source: US >20 weeks Gestational age: 35.0 [facility] Medical History (Updated 04/03/24 @ 07:51 by Kesha Quiñones CNM) Liver disease depression Depression Thyroid disorder Impacted cerumen of both ears Acute otitis externa of left ear Acute otitis media, left Pelvic pain depression Gestational diabetes Family history of cleft palate Anxiety Home Medications ?Medication ?Instructions ?Recorded ?Last Taken ?Type famotidine 40 mg tablet (Pepcid) 40 mg PO DAILY 06/21/22 04/03/24 00:00 History multivit-min no.71-iron fum 28 1 cap PO DAILY 09/26/23 04/02/24 09:00 History mg-folate no.1 1 mg-dha 300 mg capsule (PNV-[place]) blood sugar diagnostic (Blood #120 ea 02/19/24 Unknown Rx Glucose Test strips) blood-glucose meter #1 ea 02/19/24 Unknown Rx lancets #200 ea 02/19/24 Unknown Rx vit no.95-ferrous 1 tab PO DAILY 03/03/24 03/29/24 History fumarate 28 mg-folic acid 800 mcg tablet () levothyroxine 150 mcg tablet 150 mcg PO DAILY #30 tabs 03/04/24 04/02/24 10:00 Rx (Synthroid) pen needle, diabetic 32 gauge x #100 ea 03/13/24 Unknown Rx 32 (BD Ultra-Fine Sultana Pen Needle) insulin degludec 100 unit/mL (3 28 unit subcut DAILY 03/17/24 04/02/24 23:30 History mL) subcutaneous pen (Tresiba FlexTouch U-100 insulin) insulin lispro 100 unit/mL 5 unit subcut TID 03/17/24 04/02/24 18:00 History subcutaneous pen (Humalog KwikPen (U-100) Insulin) sertraline 50 mg tablet 75 mg (1.5 x 50 mg) PO QDAY #135 03/23/24 04/02/24 21:00 Rx tabs clindamycin HCl 300 mg capsule 300 mg PO TID #30 caps 03/29/24 04/02/24 20:00 Rx ferrous sulfate 325 mg (65 mg 325 mg PO QODAY 03/30/24 04/02/24 08:00 History iron) tablet (Feosol) Allergy/AdvReac Type Severity Reaction Status Date / Time penicillin G Allergy Mild Rash Verified 04/03/24 01:57 cefaclor (From Ceclor) Allergy Rash Verified 04/03/24 01:57 Family History Mother Diabetes Hypertension Breast cancer, Onset Age: 55 Grandmother Diabetes CVA (cerebral vascular accident) Grandfather Diabetes Grandmother Heart disease Grandfather Heart disease Father Thyroid disorder Sister Thyroid disorder Surgical History History of wisdom tooth extraction, class II edentulism Social History adopted: No household members: spouse and children housing: house number of children: 1 current occupational status: employed 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 current occupational exposures/hazards: No pets and animals: Yes pets and animals: dog(s) history of recent travel: No sexually active: Yes Smoking Status: Never smoker Electronic Cigarette Use: not used alcohol intake: current alcohol intake frequency: holidays/special occasions only details: not while substance use type: does not use well-balanced diet: daily or most days caffeine: Yes Type: tea Number of servings: 1 eating out: 1-3 times/week during the past year weight has: remained stable what type of physical activity do you participate in: none macrina/yazdanism: None seatbelt use: always do you feel safe at home: Yes additional social history: [facility] History 2 Elective abortions Hx Para 1 Spontaneous abortions Hx # Term Pregnancies 1 Ectopic pregnancies Hx # Pregnancies Multiple births # of living children 1 Past Pregnancies Del. Date Name GA/Weeks Outcome Route Bth Weight Infant Gen Labor Lgth Anesthesia Del Locatn Provider FOB 02/09/21 Deb 37 live - full term Female [facility] [facility] Dustin Delivery Date: 11/28/20 Last Updated by: Debby Owens 37 wk SROM [id number] Visit Details Expected Delivery Route/Plan Labor Preferences- CB/BF classes: no labor support person: Preet labor intervention preferences: [] pain management options preferred: epidural cut cord/dad catch: maybe cord : yes PP control planned: discussed discussed possible routes of delivery and associated risks: [] special requests: [] Plans Covid status: [] Flu vaccine: [] Tdap vaccine: given Rhogam: given 02.19.24 LARC form signed: 02/19/24 Problem list reviewed and updated with the most current plan of care details and appropriate orders placed. Relevant counseling for the gestational age provided. Continue routine care and follow up unless otherwise noted in visit notes/problem list details OB Flowsheet Initial Weight: 254 lb Date -?-?-?-?-?-?-?-?-?-?-?-?- EGA Weight BP Urine Prot -?-?-?-?-?-?-?-?-?-?-?-?- Glucose FHR FuHt Pres Dilation -?-?-?-?-?-?-?-?-?-?-?-?- Effaced St Visit Note 10/03/23 -?-?-?-?-?-?-?-?-?-?-?-?- 8w 6d 254 lb 8 oz (+8 oz) 131/84 -?-?-?-?-?-?-?-?-?-?-?-?- 180 -?-?-?-?-?-?-?-?-?-?-?-?- LC- CRL con with LMP. nipt accepted. hbga1c for hx of gest DM. 10/28/23 -?-?-?-?-?-?-?-?-?-?-?-?- 12w 3d 255 lb 2 oz (+1 lb 2 oz) 146/84 Negative -?-?-?-?-?-?-?-?-?-?-?-?- Negative -?-?-?-?-?-?-?-?-?-?-?-?- KW-no vb/crampin g. US ordered today. labs reviewed. handheld US for FHT-strong heart rate seen 11/27/23 -?-?-?-?-?-?-?-?-?-?-?-?- 16w 5d 256 lb 6 oz (+2 lb 6 oz) 132/84 Negative -?-?-?-?-?-?-?-?-?-?-?-?- Negative 161 -?-?-?-?-?-?-?-?-?-?-?-?- MH-No VB or cram ping. Nausea resolved. Denies concerns 12/23/23 -?-?-?-?-?-?-?-?-?-?-?-?- 20w 3d 255 lb 6 oz (+1 lb 6 oz) 136/89 Negative -?-?-?-?-?-?-?-?-?-?-?-?- Negative 150 -?-?-?-?-?-?-?-?-?-?-?-?- JV- rtp structur es of anatomy scheduled next week. work restrictions reviewed. 01/22/24 -?-?-?-?-?-?-?-?-?-?-?-?- 24w 5d 258 lb 2 oz (+4 lb 2 oz) 136/85 Negative -?-?-?-?-?-?-?-?-?-?-?-?- Negative 160 -?-?-?-?-?-?-?-?-?-?-?-?- LC- no vb/ctx/lo f. good fm. counseling encouraged for depression/relationship. counseling sheet given. [facility] [place] anatomy complete. 02/19/24 -?-?-?-?-?-?-?-?-?-?-?-?- 28w 5d 257 lb (+3 lb) 139/88 Negative -?-?-?-?-?-?-?-?-?-?-?-?- Negative 150 29 -?-?-?-?-?-?-?-?-?-?-?-?- SM- no vb lof go od fm n oregular ctx co some round ligament pain, reviewed diabetes diagnosis and anemia 03/02/24 -?-?-?-?-?-?-?-?-?-?-?-?- 30w 3d 257 lb 6 oz (+3 lb 6 oz) 122/82 Negative -?-?-?-?-?-?-?-?-?-?-?-?- Negative 152 33 -?-?-?-?-?-?-?-?-?-?-?-?- MH-No VB, LOF. G ood FM. Growth US is 03/11 and doing Q4w. Recent dx anemia and started FE daily. Also GDM, has been checking almost 1 week. States readings are high. Only has yesterdays and FBS 109. 1 of 3 others elevated and this AM FBS 116. KRYSTYNA ref to Juan Jose as was on insulin last , wkly BPP at 32 wk. Dietitian 02/02. Discussed with SM 03/17/24 -?-?-?-?-?-?-?-?-?-?-?-?- 32w 4d 258 lb (+4 lb) 130/88 Negative -?-?-?-?-?-?-?-?-?-?-?-?- Negative 140 35 -?-?-?-?-?-?-?-?-?-?-?-?- JV- growth scan shows ac >99th% and overall 85th. fasting levels uncontrolled but working with MFM (105-107) has weekly bpps and monthly growths with mfm. bpp's start at 34 weeks. Likely will need delivered at 38 weeks. 03/19/24 -?-?-?-?-?-?-?-?-?-?-?-?- 32w 6d 262 lb 4 oz (+8 lb 4 oz) 121/79 Negative -?-?-?-?-?-?-?-?-?-?-?-?- Negative 145 -?-?-?-?-?-?-?-?-?-?-?-?- KW- NST only. re active. had increase of insulin yesterday and fasting this am was better. 03/22/24 -?-?-?-?-?-?-?-?-?-?-?-?- 33w 2d 262 lb 6 oz (+8 lb 6 oz) 124/76 Negative -?-?-?-?-?-?-?-?-?-?-?-?- Negative 140 -?-?-?-?-?-?-?-?-?-?-?-?- JV- NST reactive . glucose levels normal. on same dose of insulin as last visit. feeling some minor contractions. JV- NST reactive. glucose le vels normal. on same dose of insulin as last visit. feeling some minor contractions. last scan from 03/07 showed AC . 99th%. rpt scan in 2-3 weeks 03/25/24 -?-?-?-?-?-?-?-?-?-?-?-?- 33w 5d 262 lb (+8 lb) 136/85 -?-?-?-?-?-?-?-?-?-?-?-?- 140 -?-?-?-?-?-?-?-?-?-?-?-?- JV- some elevate d fasting levels. but thinks this is due to staying up at night with her baby. nst reactive. rto on Friday for next nst/office visit. 03/29/24 -?-?-?-?-?-?-?-?-?-?-?-?- 34w 2d 262 lb 4 oz (+8 lb 4 oz) 139/87 Negative -?-?-?-?-?-?-?-?-?-?-?-?- Negative 140 -?-?-?-?-?-?-?-?-?-?-?-?- SM- co bilateral vulvar bumps and pain- folliculitis cellulitis seen, reviewed criteria for drainage- start warm compresses and antibiotics. 03/30/24 -?-?-?-?-?-?-?-?-?-?-?-?- 34w 3d 261 lb 4 oz (+7 lb 4 oz) 127/85 Negative -?-?-?-?-?-?-?-?-?-?-?-?- Negative 155 38 -?-?-?-?-?--?-?-?-?-?-?-?- KW- no vb/lof/ct x. good fm. work in for RUQ pain. onset 1800 yesterday. tylenol does not help. headache yesterday and went away after tylenol. to for work up NST FHR Rate Baby A Baseline: 130 Variability:: Moderate Accelerations:: 15 x 15 Decelerations:: None NST Reactive:: Yes FHR Category:: Category I Uterine Activity:: 2-4 minutes ROS Constitutional Constitutional: Denies change in weight, fatigue, fever(s), headache(s), poor appetite or weakness Eyes Eyes: Denies blurry vision, change in vision, floaters, seeing flashes or spots in vision ENT HEENT: Denies dizziness, headache(s), loss taste/smell or sore throat Cardiovascular Cardiovascular: Denies chest pain, dizziness, dyspnea, irregular heart rhythm, lightheadedness, palpitations or rapid heart rate Respiratory/Chest Respiratory/Chest: Denies change in mental status, chest tightness, cough, dys pnea or breast pain Gastrointestinal Gastrointestinal: Denies anorexia, chewing difficulty, constipation, diarrhea or weight changes Genitourinary Genitourinary: Denies difficulty urinating, dysuria, flank pain, genital pain, urinary frequency or urinary urgency Musculoskeletal Musculoskeletal: Denies back pain, difficulty walking, extremity pain, joint pain, muscle cramps or muscle weakness Integumentary Integumentary: Denies lesions or unusual bruising Neurologic Neurologic: Denies abnormal movements, abnormal speech, dizziness, numbness, seizure-like activity, syncope or weakness Psychiatric Psychiatric: Denies behavioral changes, change in appetite, confusion, depression, homicidal ideation, suicidal ideation or suicidal thoughts Endocrine Endocrinology: Denies excessive sweating, polydipsia or polyuria Hematologic/Lymphatic Hematologic/Lymphatic: Denies anemia Allergic/Immunologic Allergic/Immunologic: Denies itchy eyes, lip swelling, throat swelling, tongue swelling or wheezing Vital Signs Vital Signs Vital Signs: 04/03/24 02:05 04/03/24 02:05 04/03/24 02:05 Temperature Temperature Source Temporal Pulse Rate Respiratory Rate 16 Blood Pressure BP Systolic BP Diastolic Pulse Ox 100 04/03/24 02:05 04/03/24 02:06 04/03/24 02:06 Temperature 98.6 F Temperature Source Pulse Rate 103 H Respiratory Rate Blood Pressure 177/97 H BP Systolic 177 BP Diastolic 97 Pulse Ox 04/03/24 02:06 04/03/24 02:23 04/03/24 02:23 Temperature Temperature Source Pulse Rate 101 H Respiratory Rate Blood Pressure 139/81 H BP Systolic 139 BP Diastolic 81 Pulse Ox 99 04/03/24 02:35 04/03/24 02:35 04/03/24 05:38 Temperature Temperature Source Pulse Rate 97 Respiratory Rate Blood Pressure 145/85 H 139/80 H BP Systolic 145 139 BP Diastolic 85 80 Pulse Ox 04/03/24 05:38 04/03/24 06:44 04/03/24 06:44 Temperature Temperature Source Pulse Rate 86 102 H Respiratory Rate Blood Pressure BP Systolic BP Diastolic Pulse Ox 99 04/03/24 06:45 04/03/24 06:45 04/03/24 06:49 Temperature Temperature Source Pulse Rate 91 Respiratory Rate Blood Pressure 158/80 H BP Systolic 158 BP Diastolic 80 Pulse Ox 86 04/03/24 06:49 04/03/24 06:49 04/03/24 06:54 Temperature Temperature Source Pulse Rate 99 Respiratory Rate Blood Pressure 157/79 H BP Systolic 157 BP Diastolic 79 Pulse Ox 100 04/03/24 06:54 04/03/24 06:54 04/03/24 06:59 Temperature Temperature Source Pulse Rate 101 H 105 H Respiratory Rate Blood Pressure BP Systolic BP Diastolic Pulse Ox 86 04/03/24 06:59 04/03/24 07:02 04/03/24 07:02 Temperature Temperature Source Pulse Rate 110 H Respiratory Rate Blood Pressure BP Systolic BP Diastolic Pulse Ox 96 88 04/03/24 07:05 04/03/24 07:05 04/03/24 07:11 Temperature Temperature Source Pulse Rate 102 H Respiratory Rate Blood Pressure 133/69 H BP Systolic 133 BP Diastolic 69 Pulse Ox 98 04/03/24 07:11 04/03/24 07:14 04/03/24 07:14 Temperature Temperature Source Pulse Rate 108 H 107 H Respiratory Rate Blood Pressure 139/70 H BP Systolic 139 BP Diastolic 70 Pulse Ox 04/03/24 07:19 04/03/24 07:19 Temperature Temperature Source Pulse Rate 104 H Respiratory Rate Blood Pressure 141/65 H BP Systolic 141 BP Diastolic 65 Pulse Ox Weight Weight: 264 lb 5.348 oz Body Mass Index (BMI) 48.3 Physical Exam Const alert, oriented x3 and no apparent distress General Appearance: cooperative Orientation / Consciousness: awake HEENT normocephalic Neck full ROM Lymph Lymphatic: no lymphadenopathy noted Chest inspection of chest normal Resp normal respiratory effort and normal air movement Effort and Inspection: able to speak in complete sentences and symmetric chest movement GI soft to palpation and non-tender Inspection: gravid Palpation: soft; Negative for tender external exam normal Back/Spine normal to inspection Extremity normal to inspection and full ROM Skin no rashes or lesions noted Psych mental status grossly normal Appearance: grossly normal Speech: normal speech Labs Labs Labs: Blood Type A NEGATIVE Antibody Screen NEGATIVE Hct 35.0 % (37-47) L Hgb 11.0 g/dL (12.0-15.0) L Obstetrics Ultrasound Syphilis Total Ab Non-reactive Rubella IgG Antibody Reactive (Nonreactive) Hep Bs Antigen Non-Reactive (Nonreactive) Hepatitis C Antibody Non-Reactive (Nonreactive) Chlamydia DNA (FARRAH) Negative (Negative) N.gonorrhoeae DNA (FARRAH) Negative (Negative) HIV 1&2 Antibody Non-Reactive (Nonreactive) Glucose 1 Hr 50 gm 184 mg/dL (70-140) H Gest Glucose Tolerance MG/DL Rhogam given: No Miscellaneous Test Assessment & Plan (1) Fatty liver disease, nonalcoholic: (2) Vulvar cellulitis: COMMENT: clindamycin, warm compresses, reviewed criteria for fu and drainage PRN (3) Anemia affecting in third trimester: COMMENT: taking FE (4) Obesity affecting , antepartum: COMMENT: growth us q4 weeks and weekly testing at 34 weeks (5) FH: breast cancer: COMMENT: Mother at 55 (6) Hypothyroidism: QUALIFIERS: Hypothyroidism type: unspecified Qualified Code(s): E03.9 - Hypothyroidism, unspecified COMMENT: tsh/free t4 with nob/NL and q trimester, managed by dr. biswas (7) Rh negative status during : QUALIFIERS: Trimester: second trimester Qualified Code(s): O26.892 - Other specified related conditions, second trimester; Z67.91 - Unspecified blood type, Rh negative COMMENT: A neg. Rhogam PRN & 28 weeks (8) Supervision of high risk , antepartum: COMMENT: [id number], RADHA 05/08/24 boy PC Deb Preet (9) : QUALIFIERS: Weeks of gestation: 34 weeks Qualified Code(s): Z3A.34 - 34 weeks gestation of COMMENT: nl anatomy, discussed genetic & carrier testing, accepts, NIPT low risk (10) Depression: QUALIFIERS: Depression Type: unspecified Qualified Code(s): F32.A - Depression, unspecified COMMENT: stable, on zoloft (11) Anxiety: COMMENT: encouraged counseling. 10/03 stable (12) Gestational diabetes: QUALIFIERS: Gestational diabetes mellitus control: unspecified Trimester: third trimester Qualified Code(s): O24.419 - Gestational diabetes mellitus in , unspecified control COMMENT: Insulin started. needs 32 and 36 week growth US and 2xweekly NSTs at 32 weeks -uncontrolled DM. may need delivered at 38 weeks if continues to be uncontrolled. currently on (03/17/24) is on 20 of NPH at bedtime (13) SROM (spontaneous rupture of membranes): PLAN: Patient presents IAL, plan expectant management for , pitocin/AROM PRN if needed. Pain management: plans epidural. GBS unknown. Management of any complications: none I have reviewed the [facility] and made any clinically relevant updates. Charges/Coding Multi Select Codes Urinary/Genital Urinary/Genital CPT Codes: No Charge
--- NOTE | 2024-04-03 07:51 | OP.PCM_ITS ---
Assessment & Plan (1) Vaginal delivery: (2) SROM (spontaneous rupture of membranes): (3) Fatty liver disease, nonalcoholic: (4) Vulvar cellulitis: COMMENT: clindamycin, warm compresses, reviewed criteria for fu and drainage PRN (5) Anemia affecting in third trimester: COMMENT: taking FE (6) Obesity affecting , antepartum: COMMENT: growth us q4 weeks and weekly testing at 34 weeks (7) FH: breast cancer: COMMENT: Mother at 55 (8) Hypothyroidism: QUALIFIERS: Hypothyroidism type: unspecified Qualified Code(s): E03.9 - Hypothyroidism, unspecified COMMENT: tsh/free t4 with nob/NL and q trimester, managed by dr. biswas (9) Rh negative status during : QUALIFIERS: Trimester: second trimester Qualified Code(s): O26.892 - Other specified related conditions, second trimester; Z67.91 - Unspecified blood type, Rh negative COMMENT: A neg. Rhogam PRN & 28 weeks (10) Supervision of high risk , antepartum: COMMENT: [id number], RADHA 05/08/24 boy PC Deb Preet (11) : QUALIFIERS: Weeks of gestation: 34 weeks Qualified Code(s): Z3 A.34 - 34 weeks gestation of COMMENT: nl anatomy, discussed genetic & carrier testing, accepts, NIPT low risk (12) Depression: QUALIFIERS: Depression Type: unspecified Qualified Code(s): F32.A - Depression, unspecified COMMENT: stable, on zoloft (13) Anxiety: COMMENT: encouraged counseling. 10/03 stable (14) Gestational diabetes: QUALIFIERS: Gestational diabetes mellitus control: unspecified Trimester: third trimester Qualified Code(s): O24.419 - Gestational diabetes mellitus in , unspecified control COMMENT: Insulin started. needs 32 and 36 week growth US and 2xweekly NSTs at 32 weeks -uncontrolled DM. may need delivered at 38 weeks if continues to be uncontrolled. currently on (03/17/24) is on 20 of NPH at bedtime Maternal Data Information RADHA Calculator Estimated Delivery Date Method Current WG Current Estimate 05/08/24 LMP (Certain) 35w 0d Final RADHA: 05/08/24 Final RADHA Source: US >20 weeks Gestational age: 35.0 Vaginal Delivery Maternal Presentation Maternal Presentation: Spontaneous Rupture of Membranes Maternal Presentation: Progressed well to 10cm dilated and made steady progress with effective maternal pushing. Delivered the head in SUE presentation. The head was delivered atraumatically and no nuchal cord was identified. The anterior and posterior shoulders delivered without complication followed by the rest of the and the infant was placed on the maternal abdomen. Delayed cord clamping was employed for approximately 3 minutes. Cord was clamped and cut and gentle traction was applied to the cord and the placenta delivered spontaneously. Immediately following, it was noted to be intact with a 3 vessel cord. The perineum and vagina were inspected and noted to have a second degree laceration which was repaired with 3-0 Vicryl in the usual fashion. EBL was 250cc. Patient and tolerated delivery well. Apgars 5/7. Dr Rosado notified of vaginal delivery and orders reviewed. Physician agrees with current plan of care. Operative Information Date of Procedure: 04/03/24 Pre-Operative Diagnosis: See AP comments Post-Operative Diagnosis: Same Surgery / Procedure Performed: Spontaneous Vaginal Delivery file keeper #1: Kesha Quiñones Type of Anesthesia: Epidural Estimated Blood Loss: 250 Time of Delivery: 07:19 Findings Presentation: Vertex Amniotic Membrane Rupture Type: Spontaneous Time of Membrane Rupture: 0010 Amniotic Fluid Description: Clear Placental Delivery Description: Spontaneous Placenta Disposition: [facility] Cord Vessel Description: 3 Vessels Cord Entanglement: None Cord Gases: ABG and VBG Infant A Gender: Male (1 minute): 5 (5 minute): 7 Delayed Cord Clamping: Yes Post Vaginal Delivery Medications Given After Delivery: IV Pitocin Episiotomy Description: None Laceration: 2nd degree Complication Complications: None Multi Select Codes Urinary/Genital Urinary/Genital CPT Codes: 91954 Vaginal Delivery [facility]
--- NOTE | 2024-04-03 07:55 | PCM.DC ---
Discharge Instructions Diet Discharge Diet: No restrictions Activity Discharge Activity: Return to Normal Activity May resume sexual activity in: 6-8 weeks Dressing / Incision Call your doctor if you observe: Fever of 101 or Higher, Coldness, Increased Pain, Numbness or Tingling, Change in Color, Inability to urinate, Inability to have a bowel movement, Using more than 1 pad per hour, Shortness of breath, Dizziness, Fainting spells, Swelling in the ankles, Chest pain, Increased palpitations (irregular heartbeat), Calf discomfort and Uncontrolled pain Follow Up Care Please Follow Up With: Kesha Quiñones CNM When: Please call the office to schedule your follow up appointment in 6 weeks. If you had high blood pressure please call to schedule an appointment in 2 weeks. Test Results: Test results from this visit will be discussed in further detail at your follow-up appointment, if applicable. Discharge Plan Admission Admit Date/Time: 04/03/24 02:50 Attending Provider: Kesha Quiñones Primary Care Provider: Xiomara Mclaughlin Discharge Orders/Prescriptions Prescriptions: No Action famotidine [Pepcid] 40 mg tablet 40 mg PO DAILY PNV-[place] 28-1-300 mg capsule 1 cap PO DAILY insulin lispro [Humalog KwikPen Insulin] 100 unit/mL insulin pen 5 unit subcut TID Rx Instructions: 5 units in am, 5 units in afternoon, 10 units in evening insulin degludec [Tresiba FlexTouch U-100] 100 unit/mL (3 mL) insulin pen 28 unit subcut DAILY (DME) pen needle, diabetic [BD Ultra-Fine Sultana Pen Needle] 32 gauge x 5/32 needle See Rx Instructions .Route Qty: 100 2RF Rx Instructions: 4x/day clindamycin HCl 300 mg capsule 300 mg PO TID Qty: 30 0RF PNV cmb#95-ferrous fumarate-FA [] 28 mg iron- 800 mcg tablet 1 tab PO DAILY ferrous sulfate [Feosol] 325 mg (65 mg iron) tablet 325 mg PO QODAY (DME) blood-glucose meter [facility] See Rx Instructions .MEDSUPPLY Qty: 1 0RF Rx Instructions: As directed- Test fasting and 2 hours after meals (DME) Blood Glucose Test Strip See Rx Instructions .MEDSUPPLY Qty: 120 5RF Rx Instructions: As directed-fasting & 2 hr post meals (DME) lancets Misc See Rx Instructions .MEDSUPPLY Qty: 200 5RF Rx Instructions: As directed-fasting & 2 hr post meals levothyroxine [Synthroid] 150 mcg tablet 150 mcg PO DAILY Qty: 30 1RF sertraline 50 mg tablet 75 mg PO QDAY Qty: 135 4RF Referrals / Follow Up: Xiomara Mclaughlin MD [Primary Care Provider] -
[2024-04-03 08:07] LABS: Bedside Glucose 106 mg/dL (74-106)
[2024-04-03] MEDS: Oxytocin 15 Units/NS 250ml 15 UNITS/250 ML IV.SOLN 83 UNITS IV (08:30)
[2024-04-03] MEDS: Rho(D) Immune Globulin 300 MCG (1500 Unit) Syringe IV (12:09)
[2024-04-03] MEDS: Famotidine 20 MG Tablet 40 MG PO (13:20)
[2024-04-03] MEDS: Ibuprofen 600 MG Tablet PO (16:31)
[2024-04-03] MEDS: Sertraline 50 MG Tablet PO (20:33)
[2024-04-04 00:12] VITALS: BP 132/83; PULSE 90; RESP 16; TEMP 36.3; O2SAT 99
--- NOTE | 2024-04-04 02:05 | PN.OBGYN_ITS ---
Subjective Subjective Patient doing well without complaints. Tolerating PO. Ambulating and voiding without difficulty. Feeding well. Denies chest pain, shortness of breath, calf pain/swelling, fevers, chills, lightheadedness. Objective Data Objective Data Vital Signs: Vital Signs Temp Pulse Resp BP Pulse Ox O2 Del Method 97.4 F L 90 16 135/67 H 99 Room Air 04/04/24 00:12 04/04/24 00:12 04/04/24 00:12 04/03/24 20:24 04/04/24 00:12 04/04/24 00:12 Oxygen Delivery Method Room Air Weight: 264 lb 5.348 oz Body Mass Index (BMI) 48.3 Intake & Output: Intake and Output for Last 24 Hours 04/02/24 04/03/24 04/04/24 23:59 23:59 23:59 Intake Total 1860.83 / 1860.83 Output Total 700 / 700 Balance 1160.83 / 1160.83 Lab / Micro Data Attestation: I reviewed the patient's lab results. 04/03/24 03:20 04/03/24 03:20 Labs: Laboratory Results - last 24 hr 04/03/24 02:15: Vag Amniotic Fld Detect POSITIVE H 04/03/24 03:19: POC Glucose 88 04/03/24 03:20: WBC 10.1, RBC 3.92 L, Hgb 11.0 L, Hct 35.0 L, MCV 89.3, MCH 28.1, MCHC 31.4 L, RDW Std Deviation 52.8 H, RDW Coeff of Rober 16.4 H, Plt Count 255, MPV 11.2, Immature Gran % (Auto) 0.600, Neut % (Auto) 77.1 H, Lymph % (Auto) 15.3 L, Cecil % (Auto) 6.2, Eos % (Auto) 0.5, Baso % (Auto) 0.3, Absolute Neuts (auto) 7.8 H, Absolute Lymphs (auto) 1.55, Nucleated RBC % 0.2, PT 14.6, INR 1.1, APTT 23.4 L, Creatinine 0.66, Estim Creat Clear Calc 146.53, Est GFR (MDRD) Af Amer 130, Est GFR (MDRD) Non-Af 107, Uric Acid 3.7, AST 54 H, ALT 79 H , Lactate Dehydrogenase 233, Syphilis Total Ab Non-reactive, Blood Type A NEGATIVE, Antibody Screen NEGATIVE 04/03/24 03:40: U Random Total Protein 59.6 H, Urine Creatinine 187.00, P rotein/Creatinin Ratio 319 H 04/03/24 04:21: POC Glucose 94 04/03/24 05:35: POC Glucose 86 04/03/24 07:48: POC Glucose 106 04/03/24 10:20: Screen NEGATIVE, Baby's Blood Type AB POSITIVE, Baby's LEATHA NEGATIVE ROS Constitutional Constitutional: Reports systems reviewed and no addt'l complaints, except as documented; Denies anorexia or headache(s) Cardiovascular Cardiovascular: Reports systems reviewed and no addt'l complaints, except as documented; Denies dizziness, dyspnea, nausea or tachypnea Respiratory/Chest Respiratory/Chest: Reports systems reviewed and no addt'l complaints, except as documented; Denies cough, dyspnea, shortness of breath at rest or tachypnea Gastrointestinal Gastrointestinal: Reports systems reviewed and no addt'l complaints, except as documented; Denies abdominal pain, constipation or nausea Genitourinary Genitourinary: Reports systems reviewed and no addt'l complaints, except as documented; Denies burning urination, difficulty urinating, dysuria, urinary frequency or urinary incontinence Musculoskeletal Musculoskeletal: Reports systems reviewed and no addt'l complaints, except as documented Integumentary Integumentary: Reports systems reviewed and no addt'l complaints, except as documented Neurologic Neurologic: Reports systems reviewed and no addt'l complaints, except as documented; Denies abnormal speech, dizziness or headache(s) Psychiatric Psychiatric: Reports systems reviewed and no addt'l complaints, except as documented Endocrine Endocrinology: Reports systems reviewed and no addt'l complaints, except as documented Hematologic/Lymphatic Hematologic/Lymphatic: Reports systems reviewed and no addt'l complaints, except as documented Physical Exam Const alert, oriented x3 and no apparent distress Neck full ROM Resp normal respiratory effort, normal air movement and no retractions Effort and Inspection: able to speak in complete sentences and symmetric chest movement GI soft to palpation Bladder / Kidney Exam: bladder normal to palpation Uterus Palpation: uterus fundus firm Extremity normal to inspection and full ROM Psych mental status grossly normal, thought process normal and cooperative Assessment & Plan (1) Pre-eclampsia affecting childbirth: COMMENT: elevated P/C ratio and liver enzymes. (2) Vaginal delivery: COMMENT: KW 35.0 Maria Isabel [place] SROM PLAN: s/p PPD # 1 1. routine post delivery care 2. breast feeding- support given 3. rh positive 4. rubella immune (3) SROM (spontaneous rupture of membranes): (4) Fatty liver disease, nonalcoholic: (5) Vulvar cellulitis: COMMENT: clindamycin, warm compresses, reviewed criteria for fu and drainage PRN (6) Anemia affecting in third trimester: COMMENT: taking FE (7) Obesity affecting , antepartum: COMMENT: growth us q4 weeks and weekly testing at 34 weeks (8) FH: breast cancer: COMMENT: Mother at 55 (9) Hypothyroidism: QUALIFIERS: Hypothyroidism type: unspecified Qualified Code(s): E 03.9 - Hypothyroidism, unspecified COMMENT: tsh/free t4 with nob/NL and q trimester, managed by dr. biswas (10) Rh negative status during : QUALIFIERS: Trimester: second trimester Qualified Code(s): O 26.892 - Other specified related conditions, second trimester; Z67.91 - Unspecified blood type, Rh negative COMMENT: A neg. Rhogam PRN & 28 weeks (11) Supervision of high risk , antepartum: COMMENT: [id number], RADHA 05/08/24 maria isabel ARNOLD Deb Preet (12) : QUALIFIERS: Weeks of gestation: 34 weeks Qualified Code(s): Z 3A.34 - 34 weeks gestation of COMMENT: nl anatomy, discussed genetic & carrier testing, accepts, NIPT low risk (13) Depression: QUALIFIERS: Depression Type: unspecified Qualified Code(s): F32.A - Depression, unspecified COMMENT: stable, on zoloft (14) Anxiety: COMMENT: encouraged counseling. 10/03 stable (15) Gestational diabetes: QUALIFIERS: Gestational diabetes mellitus control: unspecified T rimester: third trimester Qualified Code(s): O24.419 - Gestational diabetes mellitus in , unspecified control COMMENT: Insulin started. needs 32 and 36 week growth US and 2xweekly NSTs at 32 weeks -uncontrolled DM. may need delivered at 38 weeks if continues to be uncontrolled. currently on (03/17/24) is on 20 of NPH at bedtime Charges/Coding Multi Select Codes Urinary/Genital Urinary/Genital CPT Codes: No Charge
[2024-04-04 03:24] VITALS: BP 130/73; PULSE 82; RESP 17; TEMP 36.1; O2SAT 100
[2024-04-04] MEDS: Ibuprofen 600 MG Tablet PO ×2 (03:31→15:42)
[2024-04-04] MEDS: Levothyroxine 150 MCG Tablet PO (06:20)
[2024-04-04 06:41] LABS: Bedside Glucose 66 mg/dL (74-106)
--- NOTE | 2024-04-04 06:56 | NURSING ---
Pt's AM fasting BGT was 66; pt asymptomatic. Pt planning to eat breakfast as soon as enough time has passed since Synthroid administration. SaeRN
[2024-04-04 08:56] VITALS: BP 128/78; PULSE 91; RESP 16; TEMP 36.3; O2SAT 100
[2024-04-04] MEDS: Clindamycin HCl 150 MG Capsule 300 MG PO ×3 (09:03→22:17)
[2024-04-04] MEDS: Senna/Docusate Sodium 1 Tablet PO (14:47)
[2024-04-04 15:31] VITALS: BP 146/71; PULSE 87; RESP 16; TEMP 35.8; O2SAT 99
[2024-04-04 17:18] VITALS: BP 122/77
[2024-04-04] MEDS: DiphenhydrAMINE 25 MG Capsule PO (17:20)
[2024-04-04 20:06] VITALS: BP 127/72; PULSE 88; RESP 16; TEMP 35.9; O2SAT 100
[2024-04-04] MEDS: Sertraline 50 MG Tablet PO (22:17)
[2024-04-04] MEDS: Famotidine 20 MG Tablet PO (22:23)
[2024-04-05 01:35] VITALS: BP 145/84; PULSE 88; RESP 16; TEMP 36; O2SAT 99
[2024-04-05] MEDS: Ibuprofen 600 MG Tablet PO ×2 (01:38→08:36)
[2024-04-05] MEDS: Clindamycin HCl 150 MG Capsule 300 MG PO (07:27)
[2024-04-05] MEDS: Levothyroxine 150 MCG Tablet PO (07:28)
--- NOTE | 2024-04-05 08:24 | PCM.DC.SUM ---
Providers Date of Admission: 04/03/24 Primary Care Physician: Dr. Xiomara Mclaughlin MD Reason For Visit: VAGINAL DELIVERY Diagnosis Discharge Diagnosis (1) Pre-eclampsia affecting childbirth: Status: Acute Code(s): O14.94 - Unspecified pre-eclampsia, complicating childbirth (2) Vaginal delivery: Status: Resolved Code(s): O80 - Encounter for full-term uncomplicated delivery (3) SROM (spontaneous rupture of membranes): Status: Resolved (4) Fatty liver disease, nonalcoholic: Status: Acute Code(s): K76.0 - Fatty (change of) liver, not elsewhere classified (5) Vulvar cellulitis: Status: Acute Code(s): N76.2 - Acute vulvitis (6) Anemia affecting in third trimester: Status: Acute Code(s): O99.013 - Anemia complicating , third trimester (7) Obesity affecting , antepartum: Status: Acute Code(s): O99.210 - Obesity complicating , unspecified trimester (8) FH: breast cancer: Status: Acute Code(s): Z80.3 - Family history of malignant neoplasm of breast (9) Hypothyroidism: Status: Acute Code(s): E03.9 - Hypothyroidism, unspecified Qualifiers: Hypothyroidism type: unspecified Qualified Code(s): E03.9 - Hypothyroidism, unspecified (10) Rh negative status during : Status: Acute Code(s): O26.899 - Other specified related conditions, unspecified trimester; Z67.91 - Unspecified blood type, Rh negative Qualifiers: Trimester: second trimester Qualified Code(s): O26.892 - Other specified related conditions, second trimester; Z67.91 - Unspecified blood type, Rh negative (11) Supervision of high risk , antepartum: Status: Resolved Code(s): O09.90 - Supervision of high risk , unspecified, unspecified trimester (12) : Status: Resolved Code(s): Z34.90 - Encounter for supervision of normal , unspecified, unspecified trimester Qualifiers: Weeks of gestation: 34 weeks Qualified Code(s): Z3A.34 - 34 weeks gestation of (13) Depression: Status: Acute Code(s): F32.A - Depression, unspecified Qualifiers: Depression Type: unspecified Qualified Code(s): F32.A - Depression, unspecified (14) Anxiety: Status: Acute Code(s): F41.9 - Anxiety disorder, unspecified (15) Gestational diabetes: Status: Acute Code(s): O24.419 - Gestational diabetes mellitus in , unspecified control Qualifiers: Gestational diabetes mellitus control: unspecified Trimester: third trimester Qualified Code(s): O24.419 - Gestational diabetes mellitus in , unspecified control Medications at Discharge Home Medications famotidine 40 mg tablet (Pepcid) 40 mg PO DAILY 06/21/22 multivit-min no.71-iron fum 28 mg-folate no.1 1 mg-dha 300 mg capsule (PNV-[place]) 1 cap PO DAILY 09/26/23 blood sugar diagnostic (Blood Glucose Test strips) #120 ea 02/19/24 blood-glucose meter #1 ea 02/19/24 lancets #200 ea 02/19/24 vit no.95-ferrous fumarate 28 mg-folic acid 800 mcg tablet () 1 tab PO DAILY 03/03/24 levothyroxine 150 mcg tablet (Synthroid) 150 mcg PO DAILY #30 tabs 03/04/24 pen needle, diabetic 32 gauge x 5/32 (BD Ultra-Fine Sultana Pen Needle) #100 ea 03/13/24 insulin degludec 100 unit/mL (3 mL) subcutaneous pen (Tresiba FlexTouch U-100 insulin) 28 unit subcut DAILY 03/17/24 insulin lispro 100 unit/mL subcutaneous pen (Humalog KwikPen (U-100) Insulin) 5 unit subcut TID 03/17/24 sertraline 50 mg tablet 75 mg (1.5 x 50 mg) PO QDAY #135 tabs 03/23/24 clindamycin HCl 300 mg capsule 300 mg PO TID #30 caps 03/29/24 ferrous sulfate 325 mg (65 mg iron) tablet (Feosol) 325 mg PO QODAY 03/30/24 Hospital Course Operations None Procedures None Summary of Care Provided Hospital Course: at 35 weeks admitted with SROM proceeded with with normal course. Physical Exam Const alert, oriented x3 and no apparent distress Neck full ROM Resp normal respiratory effort, normal air movement and no retractions Effort and Inspection: able to speak in complete sentences and symmetric chest movement GI soft to palpation Bladder / Kidney Exam: bladder normal to palpation Uterus Palpation: uterus fundus firm Extremity normal to inspection and full ROM Psych mental status grossly normal, thought process normal and cooperative Weight / BMI Weight Weight: 264 lb 5.348 oz Body Mass Index (BMI) 48.3 ABG / Lab / Microbiology Data 04/03/24 03:20 04/03/24 03:20 D/C Instructions Discharge Diet: No restrictions May resume sexual activity in: 6-8 weeks Call your doctor if you observe: Fever of 101 or Higher, Coldness, Increased Pain, Numbness or Tingling, Change in Color, Inability to urinate, Inability to have a bowel movement, Using more than 1 pad per hour, Shortness of breath, Dizziness, Fainting spells, Swelling in the ankles, Chest pain, Increased palpitations (irregular heartbeat), Calf discomfort and Uncontrolled pain Please Follow Up With: Kesha Quiñones CNM When: Please call the office to schedule your follow up appointment in 6 weeks. If you had high blood pressure please call to schedule an appointment in 2 weeks. Meaningful Use Info Meaningful Use Meaningful Use Diagnoses (Choose all that apply): None applicable Ischemic Stroke Statin Dosing Therapy Reference: STATIN DOSE THERAPY REFERENCE: * Patients > 75 years receive moderate or high dose statin therapy. * Patients 75 years or YOUNGER should receive HIGH intensity statin dose unless contraindicated. You will be required to document reason for non-treatment if statin daily dose does not meet guidelines. HIGH DOSE STATIN THERAPY DAILY Atorvastatin > than or = to 40 mg Rosuvastatin > than or = to 20 mg Amlodipine + Atorvastatin > than or = to 2.5/40 mg Ezetimibe + Simvastatin 10/80 mg Simvastatin 80mg Discharge Plan Admission Admit Date/Time: 04/03/24 02:50 Attending Provider: Kesha Quiñones Primary Care Provider: Xiomara Mclaughlin Discharge Orders/Prescriptions Prescriptions: No Action famotidine [Pepcid] 40 mg tablet 40 mg PO DAILY PNV-[place] 28-1-300 mg capsule 1 cap PO DAILY insulin lispro [Humalog KwikPen Insulin] 100 unit/mL insulin pen 5 unit subcut TID Rx Instructions: 5 units in am, 5 units in afternoon, 10 units in evening insulin degludec [Tresiba FlexTouch U-100] 100 unit/mL (3 mL) insulin pen 28 unit subcut DAILY (DME) pen needle, diabetic [BD Ultra-Fine Sultana Pen Needle] 32 gauge x needle See Rx Instructions .Route Qty: 100 2RF Rx Instructions: 4x/day clindamycin HCl 300 mg capsule 300 mg PO TID Qty: 30 0RF PNV cmb#95-ferrous fumarate-FA [] 28 mg iron- 800 mcg tablet 1 tab PO DAILY ferrous sulfate [Feosol] 325 mg (65 mg iron) tablet 325 mg PO QODAY (DME) blood-glucose meter Misc See Rx Instructions .MEDSUPPLY Qty: 1 0RF Rx Instructions: As directed- Test fasting and 2 hours after meals (DME) Blood Glucose Test Strip See Rx Instructions .MEDSUPPLY Qty: 120 5RF Rx Instructions: As directed-fasting & 2 hr post meals (DME) lancets Misc See Rx Instructions .MEDSUPPLY Qty: 200 5RF Rx Instructions: As directed-fasting & 2 hr post meals levothyroxine [Synthroid] 150 mcg tablet 150 mcg PO DAILY Qty: 30 1RF sertraline 50 mg tablet 75 mg PO QDAY Qty: 135 4RF Referrals / Follow Up: Xiomara Mclaughlin MD [Primary Care Provider] - Disposition Disposition (needs filled in before D/C Order can be placed): Home, Self Care
--- NOTE | 2024-04-05 08:27 | PCM.PN.OB ---
Subjective Subjective Patient doing well without complaints. Tolerating PO. Ambulating and voiding without difficulty. Feeding well, and pumping. tearful this morning over routine. Denies chest pain, shortness of breath, calf pain/swelling, fevers, chills, lightheadedness. Objective Data Objective Data Vital Signs: Vital Signs Temp Pulse Resp BP Pulse Ox O2 Del Method 96.8 F L 88 16 145/84 H 99 Room Air 04/05/24 01:35 04/05/24 01:35 04/05/24 01:35 04/05/24 01:35 04/05/24 01:35 04/05/24 01:35 Oxygen Delivery Method Room Air Weight: 264 lb 5.348 oz Body Mass Index (BMI) 48.3 Intake & Output: Intake and Output for Last 24 Hours 04/03/24 04/04/24 04/05/24 23:59 23:59 23:59 Intake Total 1860.83 / 1860.83 400 / 400 Output Total 700 / 700 Balance 1160.83 / 1160.83 400 / 400 Lab / Micro Data 04/03/24 03:20 04/03/24 03:20 Physical Exam Const alert, oriented x3 and no apparent distress Neck full ROM Resp normal respiratory effort, normal air movement and no retractions Effort and Inspection: able to speak in complete sentences and symmetric chest movement GI soft to palpation Bladder / Kidney Exam: bladder normal to palpation Uterus Palpation: uterus fundus firm Extremity normal to inspection and full ROM Psych mental status grossly normal, thought process normal and cooperative Assessment & Plan (1) (spontaneous vaginal delivery): COMMENT: KW 35 weeks SROM PLAN: s/p PPD # 2 1. routine post delivery care 2. breast feeding- support given 3. rh positive 4. rubella immune 5. d/c to hotel status
[2024-04-05 08:35] VITALS: BP 147/82; PULSE 85; RESP 16; TEMP 37; O2SAT 100
[2024-04-05] MEDS: Acetaminophen 500 MG Tablet 1000 MG PO (09:49)
[2024-04-05] MEDS: Senna/Docusate Sodium 1 Tablet PO (09:49)
--- NOTE | 2024-04-05 11:57 | CASEMGMT ---
Social Work Assessment Labor and Delivery Unit Patient Address: [facility]– [place][note 2] [place] [address] Phone number: [phone] Date of Referral: 04/03/24 Time of Referral:? 838 Referred By: Kesha Quiñones Date of Intervention: ?04/03/24? Time of Intervention:? 1029 Reason for Referral:? mental health Sw completed chart review and acknowledges social work consult due to maternal mental health history. Sw presented to bedside and introduced self to mother of baby (WINSTON- Ivis). Sw explained reason for sw involvement and completed psychosocial assessment. History obtained from: medical records and MOB Household composition: WINSTON states that currently residing in the family home is herself along with father of baby (IRVING Oviedo) and their 3 year old daughter (Deb). will reside in this home when ready for discharge. MOB denies any housing concerns, or safety concerns of the home. Patient's parent/guardian status:? ?WISNTON states that she and ELENI have been together for 10 years after meeting while attending the same college. While meeting with MOB privately she denies any safety concerns with FOB or any history of vioelence throughout duration of relationship. baby is second baby for each parent together. Medical History: ?WINSTON is 33 year old female who is 2, para 1- now 2 following labor and delivery of . WINSTON received routine care during with [facility]. WINSTON states that the care she has received from [facility] is amazing and she wishes that she would have delivered her first baby at [facility]. WINSTON presented to hospital in [facility] [place] of 04/03/24 following premature rupture of membranes. WINSTON delivered baby via vaginal delivery at 35 weeks gestation. Baby boy, named Preet Stubbs was born weighing 8lb with apgars of 5, 7, and 9 at one, five and ten minutes of life, respectfully. Educational Status:? WINSTON reports to having obtained a Bachelor's degree, no concerns reported with reading, learning or comprehension. Financial Status: Both parents are gainfully employed outside of the home. 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 Supplies:?? WINSTON states that she has obtained all necessary baby supplies for baby, including: car seat, safe sleep space, clothes, diapers and wipes. Childcare/Caregiver(s):? MOB states that she will be the primary caregiver to baby along with FOB when he is not working. When both parents are at work they have childcare arrangements with family members. Transportation:?? Both parents have reliable means of transportation. No barriers at this time. Programs/Agencies Involved: ??? Children Services/Legal Issues:??? Behavioral Health Issues: ??Mental Health History:??? Substance Use History:?? Family History:? Drug Screens: ?? Family/Social Stressors:? Support Systems: Depression/Shaken Baby/Safe Sleeping:? ASSESSMENT:? Safe Plan of Care for related to substance use:? PLAN:? ?No other services requested or indicated.
--- NOTE | 2024-04-05 12:14 | CASEMGMT ---
Social Work Assessment Labor and Delivery Unit Patient Address: [facility] [place] [address] Phone number: [phone] Date of Referral: 04/03/24 Time of Referral:? [id number] Referred By: Kesha Quiñones Date of Intervention: ??04/03/24 Time of Intervention:? 5 Reason for Referral:? mental health Sw completed chart review and acknowledges social work consult due to maternal mental health history. Sw presented to bedside and introduced self to mother of baby (RAIMUNDO Langston) and explained reason for sw involvement. Sw completed psychosocial assessment. History obtained from: medical records, MOB Household composition: Currently residing in the home is ELENI MONTERO, their three year old daughter and now baby when ready for discharge. WINSTON denies any safety concerns of the home. Patient's parent/guardian status:? ?WINSTON states that she and ELENI have been together for 10 years after meeting while attending the same college. This is second baby for both parents together. While meeting with WINSTON privately she denies any safety concerns or history of violence throughout duration of her relationship with ELENI. Medical History: ?WINSTON is 33 year old female who is 2, para 1- now 2 following labor and delivery of . WINSTON received routine care during with [facility]. WINSTON states that the care she received was amazing and she wishes that she would have delivered her first baby with [facility]. 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 WINSTON delivered baby via vaginal delivery at 35 weeks gestation. Baby boy, named Preet Stubbs was born weighing 8lb with apgars of 5, 7, and 9 at one, five and ten minutes of life, respectfully. WINSTON reports that baby will be followed by Dr. Washington for pediatrics. Educational Status:?WINSTON obtained her Bachelor's degree and denies any concerns with reading, learning or comprehension. Financial Status: Both parents are gainfully employed outside of the home. 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 ELENI works for [employer]. Infant Supplies:?? Parents have obtained all necessary baby supplies, including: car seat, safe sleep space, clothes, diapers and wipes. Childcare/Caregiver(s):? WINSTON states that she will be the primary caregiver along with ELENI when he is not working. When both parents have returned to work they have childcare arrangements with family members. Transportation:?Both parents have their drivers license and reliable means of transportation. No barriers at this time? Programs/Agencies Involved: ???WINSTON denies any linkage to any community resources that assist them financially at this time. [employer] information provided and discussed, WINSTON reports that she can make referral if she has any concerns for baby. Children Services/Legal Issues:??? No history of involvement, no issues or concerns warranting referral to be made at this time. Behavioral Health Issues: ??Mental Health History: WINSTON states that ELENI has been diagnosed with anxiety and is on medication prescribed by his family doctor. WINSTON states that she also has anxiety and did experience depression after her first daughter was born. WINSTON states that she is on zoloft and it is prescribed by her family doctor. WINSTON denies any thoughts of self harm. WINSTON states that her daughter was extremely colicky and she struggled to breast feed which caused a lot of sleepless nights, so she was also extremely sleep deprived. ?WINSTON denies counseling, but reports that she may be open to it if she struggles during this period. WINSTON did complete an Adamant Depression Scale and her score was a 6. Education and support provided. ?? Substance Use History:?WINSTON denies substance use prior to and during . ? Family History: WINSTON denies family history of addiction or significant mental health history for her side of the family or FOMyriam's. ? Drug Screens: ??No drug screens observed in chart review. Family/Social Stressors:? WINSTON denies any concerns or stressors at this time. WINSTON disclosed struggling with anxiety and depression after the of her first baby. MOB states that another contributing factor to that period in time was that ELENI was working third shift and WINSTON was alone to care for baby while he was working. MOB states that this time ELENI has a new job where he is working first shift and MOB is appreciative of that. Support Systems: MBO states that ELENI and her mom are her two biggest supports at this time. Depression/Shaken Baby/Safe Sleeping:? Sw reviewed mood and anxiety disorders, risk factors and reinforced the importance of seeking out help and support should WINSTON experience symptoms as she has in the past. MOB acknowledged that she is able to voice what she is going through to FOB and knows that he will help her if she would struggle. Sw also pointed out to MOB that father's are also at risk of experiencing mood and anxiety disorders, especially if they have a mental health history- emphasized that it is also equally important for FOB to seek help and support if he were to struggle. MOB expressed understanding. Sw educated MOB on shaken baby prevention and ABC's of safe sleep. MOB expressed understanding. ASSESSMENT:? Met with MOB, introduced self and sw role. Sw confirmed MOB's demographics and people currently residing in family home. MOB states she has secure and safe housing, no concerns. No issues or concerns meeting basic needs- has housing and transportation, food and utilities. MOB has all necessary baby supplies and natural supports in place. Significant time spent discussing MOB's mental health and experience with depression and anxiety after the deliver of her first child. MOB reports that she is receptive to seeking out help during this period of time if she feels as though she is struggling. Much emotional and educational support provided. MOB made eye contact with sw throughout completion of assessment. MOB was observed to hold baby at beginning of assessment, and then baby was taken to nursery for testing. MOB affect was flat, however she did smile several times throughout assessment. PLAN:? MOB and baby to be discharged when medically ready. ?No other services requested or indicated. Tonya Mandujano, BRAKE MECHANIC, PT [facility]
[2024-04-05 12:48] VITALS: BP 134/79; PULSE 83; RESP 16; TEMP 36.5; O2SAT 98
== END 2024-04-05 12:50 | disposition home or self-care (01) | DRG 807 ==
LOC: WPOUT 02:50 → WP 02:50
PROVIDERS: Admitting Provider Advanced Practice Midwife; PCP Internal Medicine; Referring Provider Advanced Practice Midwife; Visit Provider Advanced Practice Midwife
DX: O14.94 Unspecified pre-eclampsia, complicating childbirth (principal); Z37.0 Single live birth; O60.14X0 Preterm labor third trimester with preterm delivery third trimester, not applicable or unspecified; O24.424 Gestational diabetes mellitus in childbirth, insulin controlled; O23.593 Infection of other part of genital tract in pregnancy, third trimester; O26.62 Liver and biliary tract disorders in childbirth; O99.344 Other mental disorders complicating childbirth; K76.0 Fatty (change of) liver, not elsewhere classified; E03.9 Hypothyroidism, unspecified; F32.A Depression, unspecified; F41.9 Anxiety disorder, unspecified; O99.214 Obesity complicating childbirth; O70.1 Second degree perineal laceration during delivery; O99.284 Endocrine, nutritional and metabolic diseases complicating childbirth; Z3A.35 35 weeks gestation of pregnancy; Z80.3 Family history of malignant neoplasm of breast; Z67.91 Unspecified blood type, Rh negative; O26.893 Other specified pregnancy related conditions, third trimester; O99.02 Anemia complicating childbirth
CPT/HCPCS: 59025; 59050; 82565; 82570; 82962; 83615; 84112; 84156; 84450; 84460; 84550; 85025; 85461; 85610; 85730; 86780; 86850; 86900; 86901; 87653; 90384; 99221; J7120; G0378; J2790; J2791

== ENCOUNTER → 2024-11-23 | Outpatient (CLI) | payer BC, SELFPAY ==
[2024-11-23 16:40] LABS: Absolute Lymphocyte Count 2.04 X10^3/uL (0.83-4.51); Absolute Neutrophil Count 4.4 X10^3/uL (2.0-7.7); Basophil# 0.03 X10^3/uL; Basophil% 0.4 % (0-1); Eosinophil# 0.11 X10^3/uL; Eosinophils% 1.5 % (0-5); Hematocrit 37.8 % (37-47); Hemoglobin 11.9 g/dL (12.0-15.0); Lymphocyte # 2.04 X10^3/ul (0.83-4.51); Lymphocyte % 28.5 % (19-41); Mean Corp Hgb Conc 31.5 g/dL (32-36); Mean Corpuscular Hgb 26.7 pg (27.0-32.0); Mean Corpuscular Volume 84.8 fL (81-99); Mean Platelet Vol. 10.2 fl (6.2-12.0); Monocyte# 0.55 X10^3/uL; Monocyte% 7.7 % (0-10); NRBC Flagged by Analyzer 0 % (0-5); Neutrophil # 4.39 X10^3/uL (2.7-7.7); Neutrophil % 61.5 % (47-70); Platelet Count 253 K/mm3 (150-450); RBC Distribution Width CV 13.9 % (11.6-14.6); RBC Distribution Width SD 42.8 fl (35.1-43.9); Red Blood Count 4.46 M/mm3 (4.2-5.4); White Blood Count 7.2 K/mm3 (4.4-11.0)
[2024-11-23 16:53] LABS: Hemoglobin A1c 5.1 % (3.8-5.6)
[2024-11-23 17:02] LABS: ALB/GLOB Ratio 0.9 RATIO (0.9-2.4); AST(SGOT) 12 U/L (15-37); Alanine Aminotransfer ALT/SGPT 22 U/L (13-56); Albumin, Serum 3.5 g/dL (3.2-5.0); Alkaline Phosphatase 82 U/L (45-117); Anion Gap 8 (5-15); BUN 16 mg/dL (7-18); BUN/Creat Ratio 19.5 RATIO (10-20); Calcium,Total 8.8 mg/dL (8.5-10.1); Chloride 105 mmol/L (98-107); Cholesterol 210 mg/dL (200); Creatinine, Serum 0.82 mg/dL (0.55-1.02); EST Glomerular Filtration Rate 84 mL/min (>60); Est Glom Filt Rate - Afr Amer 101 mL/min (>60); Globulin 4.1 g/dL (2.2-4.2); Glucose 91 mg/dL (74-106); High Density Lipoprotein 44 mg/dL; Potassium 3.9 mmol/L (3.5-5.1); Protein, Total 7.6 g/dL (6.4-8.2); Sodium Level 138 mmol/L (136-145); Triglycerides 323 mg/dL; Very Low Density Lipoprotein 65 mg/dL (5-40)
== END | disposition home or self-care (01) ==
PROVIDERS: PCP Internal Medicine; Visit Provider Internal Medicine
DX: E03.9 Hypothyroidism, unspecified (principal); R12 Heartburn; Z86.32 Personal history of gestational diabetes
CPT/HCPCS: 36415; 80053; 80061; 83036; 84443; 85025

== ENCOUNTER 2025-01-16 01:39 | Emergency (ER) | payer BC, SELFPAY ==
--- NOTE | 2025-01-16 03:32 | CT_ITS ---
PROCEDURE: CT of the abdomen/pelvis with IV contrast. REASON FOR EXAM: Abdominal/epigastric pain. TECHNIQUE: After the administration of 100 cc Isovue 370 IV contrast, contiguous axial CT images were obtained through the abdomen/pelvis. One or more dose reduction techniques were used (e.g., Automated exposure control, adjustment of the mA and/or kV according to patient size, use of iterative reconstruction technique RADIATION DOSE SUMMARY: DLP: 1222.33 mGycm COMPARISON: None available FINDINGS: Mild degenerative changes are present in the spine. Bones of the abdomen/pelvis otherwise intact. Heart is not enlarged. No sizable pericardial effusion. Lower ribs are intact. Lower breast tissue and lower lungs are unremarkable. The abdominal aorta is normal in caliber. Moderate ingested material in the stomach. There may be a tiny hiatal hernia. 1.4 cm dependent gallstone. No secondary findings of acute cholecystitis. No abnormal dilation of the biliary tree. Portal vein is patent. The liver is mildly enlarged, low in attenuation. No discrete liver parenchymal lesion. The adrenal glands, spleen, and pancreas show no specific abnormality. Kidneys are symmetric in size and enhancement. No solid renal mass or obstructive uropathy. The urinary bladder is unremarkable. The uterus is present. There is a posterior left adnexal lesion measuring 5.2 cm. No abnormally dilated bowel segments or free intraperitoneal air. No large abdominal wall defect. Scattered patchy wall thickening of the: May be due to lack of distention versus peristalsis. Normal appendix. No abdominal/pelvic adenopathy or ascites. CT/Abdomen/Pelvis W IV Cont ONLY IMPRESSION: No definite acute findings in the abdomen/pelvis. No evidence of acute pancrea titis. Cholelithiasis without evidence of acute cholecystitis. Mild hepatomegaly. Fatty metamorphosis of the liver. No discrete liver lesion . The remaining solid organs of the abdomen are unremarkable. 5.2 cm left adnexal lesion, which may represent a hemorrhagic ovarian cyst. If there is any clinical concern for torsion, further evaluation with pelvic ultrasound would be suggested. Otherwise, recom mend follow-up pelvic ultrasound in 1-2 menstrual cycles. Reading Location: [facility]
--- NOTE | 2025-01-16 03:44 | RAD_ITS ---
EXAM: PA and lateral chest radiograph, two views CLINICAL HISTORY: Epigastric pain COMPARISON: None available TECHNIQUE: PA and lateral chest radiographs were obtained. FINDINGS: Mild degenerative changes in the spine. Bones of the thorax otherwise intact. Monitoring leads overlie the chest. Some vague opacities projecting over the lower lungs on the PA view are not confirmed on the lateral projection or the same day abdominal/pelvic CT, favored to be due to artifactual from superimposed breast tissue. No focal airspace consolidation, pleural effusion, pneumothorax. Mild elevation right hemidiaphragm. RAD/Chest PA and Lateral IMPRESSION: No definite acute cardiopulmonary process. If there are persistent symptoms or clinical concern, chest CT evaluation may be considered. Reading Location: [facility]
[2025-01-16 08:48] LABS: Absolute Lymphocyte Count 1.95 X10^3/uL (0.83-4.51); Absolute Neutrophil Count 4.2 X10^3/uL (2.0-7.7); Basophil# 0.04 X10^3/uL; Basophil% 0.6 % (0-1); Eosinophil# 0.08 X10^3/uL; Eosinophils% 1.2 % (0-5); Hematocrit 37.7 % (37-47); Hemoglobin 11.9 g/dL (12.0-15.0); Lymphocyte # 1.95 X10^3/ul (0.83-4.51); Lymphocyte % 29.2 % (19-41); Mean Corp Hgb Conc 31.6 g/dL (32-36); Mean Corpuscular Hgb 26.9 pg (27.0-32.0); Mean Corpuscular Volume 85.1 fL (81-99); Mean Platelet Vol. 10.2 fl (6.2-12.0); Monocyte# 0.38 X10^3/uL; Monocyte% 5.7 % (0-10); NRBC Flagged by Analyzer 0 % (0-5); Neutrophil # 4.21 X10^3/uL (2.7-7.7); Platelet Count 196 K/mm3 (150-450); RBC Distribution Width CV 14.1 % (11.6-14.6); Red Blood Count 4.43 M/mm3 (4.2-5.4); White Blood Count 6.7 K/mm3 (4.4-11.0)
[2025-01-16 09:49] LABS: Internal QC Validated? YES +Cl - CLEAR BKGD; Pregnancy, Serum, hCG Quali. NEGATIVE Negative
[2025-01-16 11:53] LABS: ALB/GLOB Ratio 1.3 RATIO (0.9-2.4); AST(SGOT) 63 U/L (<=31); Alanine Aminotransfer ALT/SGPT 33 U/L (<=34); Alkaline Phosphatase 81 U/L (35-104); Anion Gap 16 (5-15); BUN 17 mg/dL (4-19); BUN/Creat Ratio 22.9 RATIO (10-20); Calcium,Total 8.8 mg/dL (7.6-11.0); Carbon Dioxide 17.6 mmol/L (21.0-32.0); Chloride 106 mmol/L (98-108); Creatinine, Serum 0.76 mg/dL (0.70-1.20); EST Glomerular Filtration Rate 105 (>60); Globulin 3.1 g/dL (2.2-4.2); Glucose 99 mg/dL (70-99); Lipase 37 U/L (13-75); Magnesium 2.2 mg/dL (1.5-2.2); Potassium 4.1 mmol/L (3.3-5.1); Sodium Level 140 mmol/L (133-145); Total Bilirubin 0.29 mg/dL (0.00-1.30); Troponin T High Sensitivity < 6 ng/L (<=14)
--- NOTE | 2025-01-16 13:04 | EKG12_ITS ---
Test Reason : O Blood Pressure : */* mmHG Vent. Rate : 81 BPM Atrial Rate : 81 BPM P-R Int : 168 ms QRS Dur : 76 ms QT Int : 374 ms P-R-T Axes : 28 22 22 degrees QTcB Int : 434 ms Normal sinus rhythm Normal ECG Confirmed by OLIVIA LEONARDO, GENEVIEVE ([id number]), photo editor TRISHA PAEZ ([id number]) on 01/18/2025 8:28:51 AM Referred By: Confirmed By: GENEVIEVE BAKER MD
--- NOTE | 2025-01-17 00:35 | EDS_ITS ---
HPI History of Present Illness Informant: patient Narrative Narrative: Patient is a 34-year-old female with past medical history of anxiety and depression. She states that over the last week or so she has been waking up in the middle the night with sensation of upper abdominal/lower chest discomfort. She states she has 2 young kids and typically no one at home to watch them so she has not come to the hospital for evaluation. She states there is no history of DVT or PE and she denies any recent travel or surgery. She denies any family history of heart disease at a young age. She denies any history of illicit drug use or excessive stimulant use. She states that her is now able to watch the kids at home while over the weekend and therefore she presents with concern this could be cardiovascular nature. [facility] Medical History FH: breast cancer Rh negative status during Pre-eclampsia affecting childbirth Liver disease depression Depression Thyroid disorder Impacted cerumen of both ears Pelvic pain depression Gestational diabetes Family history of cleft palate Anxiety Home Medications ?Medication ?Instructions ?Recorded ?Last Taken ?Type famotidine 40 mg tablet (Pepcid) 40 mg PO DAILY 04/03/24 00:00 History levothyroxine 150 mcg tablet 150 mcg PO DAILY #30 tabs 03/04/24 04/02/24 10:00 Rx (Synthroid) sertraline 50 mg tablet 75 mg (1.5 x 50 mg) PO QDAY #135 03/23/24 04/02/24 21:00 Rx tabs Allergy/AdvReac Type Severity Reaction Status Date / Time penicillin G Allergy Mild Rash Verified 11/23/24 14:43 cefaclor (From Ceclor) Allergy Rash Verified 11/23/24 14:43 Family History Mother Diabetes Hypertension Breast cancer, Onset Age: 55 Grandmother Diabetes CVA (cerebral vascular accident) Grandfather Diabetes Grandmother Heart disease Grandfather Heart disease Father Thyroid disorder Sister Thyroid disorder Surgical History History of wisdom tooth extraction, class II edentulism Social History (Updated 11/23/24 @ 15:[address] Xiomara Mclaughlin MD) adopted: No household members: spouse and children housing: house number of children: 2 current occupational status: employed current occupation: [employer] - [employer] current occupational exposures/hazards: No pets and animals: Yes pets and animals: dog(s) history of recent travel: No sexually active: Yes Smoking Status: Never smoker Electronic Cigarette Use: not used alcohol intake: current alcohol intake frequency: holidays/special occasions only details: not while substance use type: does not use well-balanced diet: daily or most days caffeine: Yes Type: tea Number of servings: 1 eating out: 1-3 times/week during the past year weight has: remained stable what type of physical activity do you participate in: none macrina/advent: None seatbelt use: always do you feel safe at home: Yes additional social history: [facility] ROS ED Constitutional Constitutional ED: Denies chills or fever(s) Eyes Eyes: Denies blurry vision or change in vision ENT ENT ED: Denies sore throat Cardiovascular Cardiovascular: Reports chest pain; Denies palpitations or racing heartbeat Respiratory/Chest Respiratory/Chest: Denies cough or dyspnea Gastrointestinal Gastrointestinal: Reports abdominal pain; Denies diarrhea, nausea or vomiting Genitourinary Genitourinary ED: Denies dysuria Musculoskeletal Musculoskeletal: Denies back pain Integumentary Denies rash Neurologic Neurologic: Denies headache(s) Psychiatric Psychiatric: Reports anxiety Hematologic/Lymphatic Hematologic/Lymphatic: Denies easy bleeding or easy bruising EXAM Physical Exam Const Positive well nourished, well developed and obese General Appearance ED: well developed; Negative for pallor Nutritional Appearance: obese HEENT Reports moist mucous membranes HEENT Narrative: Normocephalic atraumatic No tongue or lip swelling no oral lesions no airway edema or compromise No secondary findings in the posterior pharynx to suggest infection Eyes PERRL and EOMs intact bilaterally General Eye ED: Negative for scleral icterus Neck supple and no JVD Neck Narrative: No nuchal rigidity or meningeal signs Chest Wall Chest Narrative: There is reproducible pain on palpation in the midline of the lower chest without bony deformity or crepitance Resp normal respiratory effort and clear to auscultation bilaterally Cardio regular rate and regular rhythm Rate: other Other Details: Heart is regular rate and rhythm without murmurs rubs or gallops Radial and carotid pulses are equal and symmetric No carotid bruit GI non-distended and no masses GI Narrative: Abdomen is soft and nondistended with normal active bowel sounds. Patient has pain with palpation in the midepigastric and right upper quadrant region. No voluntary guarding or rigidity. No peritoneal signs. No pulsatile mass. Negative Buckley sign Auscultation: normoactive bowel sounds Palpation: soft Back/Spine no CVA tenderness Extremity normal to inspection Extremity Narrative: No asymmetric edema no pitting edema negative Homans' sign bilaterally Neuro oriented x3, CN's II-XII intact bilaterally and no sensory deficits noted Sensorium / Orientation: alert Motor Exam: strength 5/5 throughout Psych Mood & Affect: anxious Skin no rashes or lesions noted and no wounds General Skin Exam: Negative for jaundice or pallor MDM MDM MDM Narrative Medical decision making narrative: Patient arrived in the ER complaining of lower chest/upper abdominal pain. Differential diagnosis is for ACS versus cardiac dysrhythmia versus lung pathology such as pneumonia or pneumothorax. There is also concern for pancreatitis biliary colic or acute cholecystitis. Secondary to his basic labs with a CT scan were obtained. Patient's white count is normal going against an infectious process. Lipase is normal going against pancreatitis. Liver enzymes are normal going against acute cholecystitis as well. Patient's troponin is less than 6 and her EKG is normal sinus rhythm without ischemic changes or dysrhythmia changes going against ACS or cardiac dysrhythmia. Chest x-ray revealed no acute lung pathology. At this time the patient is low risk for cardiovascular disease. Her physical exam does not suggest acute cholecystitis but may be related to potential biliary colic. At this time however as her pain is improved and workup is negative and vital stable there is no need for emergent ultrasound or further intervention and she is otherwise safe for discharge Of note the CT scan did show a left ovarian cyst that is relatively large in size. The patient does not have pain in the left lower quadrant and states that she is known about this for quite some time and therefore I do not feel it warrants emergent intervention History & Record Review Discussion w/independent historian: Patient Lab Data Attestation: I reviewed the patient's lab results. Labs: Laboratory Results - last 24 hr 01/16/25 02:25 WBC 6.7 RBC 4.43 Hgb 11.9 L Hct 37.7 MCV 85.1 MCH 26.9 L MCHC 31.6 L RDW Std Deviation 44.0 H RDW Coeff of Rober 14.1 Plt Count 196 MPV 10.2 Immature Gran % (Auto) 0.300 Neut % (Auto) 63.0 Lymph % (Auto) 29.2 [place] % (Auto) 5.7 Eos % (Auto) 1.2 Baso % (Auto) 0.6 Absolute Neuts (auto) 4.2 Absolute Lymphs (auto) 1.95 Nucleated RBC % 0 Sodium 140 Potassium 4.1 Chloride 106 Carbon Dioxide 17.6 L Anion Gap 16 H BUN 17 Creatinine 0.76 Est GFR (MDRD) Non-Af 105 BUN/Creatinine Ratio 22.9 H Glucose 99 Calcium 8.8 Magnesium 2.2 Total Bilirubin 0.29 AST 63 H ALT 33 Alkaline Phosphatase 81 Troponin T High Sens < 6 Total Protein 7.0 Albumin 4.0 Globulin 3.1 Albumin/Globulin Ratio 1.3 Lipase 37 Serum , Qual NEGATIVE Radiography Diagnostic Testing: Clinical Impression(s) from Imaging Studies Abdomen/Pelvis CT 01/16/25 03:32 IMPRESSION: No definite acute findings in the abdomen/pelvis. No evidence of acute pancreatitis. Cholelithiasis without evidence of acute cholecystitis. Mild hepatomegaly. Fatty metamorphosis of the liver. No discrete liver lesion. The remaining solid organs of the abdomen are unremarkable. 5.2 cm left adnexal lesion, which may represent a hemorrhagic ovarian cyst. If there is any clinical concern for torsion, further evaluation with pelvic ultrasound would be suggested. Otherwise, recommend follow-up pelvic ultrasound in 1-2 menstrual cycles. Reading Location: [facility] Chest X-Ray 01/16/25 03:44 IMPRESSION: No definite acute cardiopulmonary process. If there are persistent symptoms or clinical concern, chest CT evaluation may be considered. Reading Location: [facility] Chest x-ray as interpreted by the emergency medicine physician reveals no acute infiltrate pneumothorax pleural effusion or widening the mediastinum Discharge Plan Triage ED Provider: Fredrick Torrez Dx/Rx/DC Orders Clinical Impression: Cholelithiasis, Acute nonspecific chest pain with low risk of coronary artery disease, Anxiety and depression, Cyst of left ovary Prescriptions: No Action famotidine [Pepcid] 40 mg tablet 40 mg PO DAILY levothyroxine [Synthroid] 150 mcg tablet 150 mcg PO DAILY Qty: 30 1RF sertraline 50 mg tablet 75 mg PO QDAY Qty: 135 4RF Primary Care Provider: Xiomara Mclaughlin Referrals: Xiomara Mclaughlin MD [Primary Care Provider] - Print Language: Slovak Disposition Disposition: Home, Self Care
== END 2025-01-17 04:34 | disposition home or self-care (01) ==
PROVIDERS: Emergency Provider Emergency Medicine; PCP Internal Medicine; Visit Provider Emergency Medicine
DX: R07.9 Chest pain, unspecified (principal); K80.20 Calculus of gallbladder without cholecystitis without obstruction; N83.202 Unspecified ovarian cyst, left side; F41.9 Anxiety disorder, unspecified; F32.A Depression, unspecified; Z79.899 Other long term (current) drug therapy
CPT/HCPCS: 71046; 74177; 80053; 83690; 83735; 84484; 84703; 85025; 93005; Q9967; A4216

== ENCOUNTER 2025-03-03 06:04 | Day surgery (SDC) | payer BC, SELFPAY ==
[2025-03-03] VITALS (13 sets, daily range): BP systolic 107–137; BP diastolic 60–95; PULSE 79–95; RESP 16–18; TEMP 36.1–36.7; O2SAT 91–100; BMI 46.7
[2025-03-03 06:30] LABS: Internal QC Validated? YES +Cl - CLEAR BKGD; Pregnancy, Urine Negative Negative
--- NOTE | 2025-03-03 06:30 | PRE.ANES_ITS ---
ASA Classification* ASA Classification ASA Classification: 3 Assessment & Plan Anesthesia* Anesthesia Assessment Anesthesia Assessment: Discussed sedation and/or anesthesia options, risks, benefits, and alternatives with patient/parents/legal guardian/POA. Questions invited. The patient/parents/legal guardian/POA seems to understand and agrees to proceed with anesthesia plan. Reviewed the physical assessment, medical history, allergy history and patient home medications list prior to surgery/procedure/anesthetic and documented any changes. Performed airway and anesthesia risk assessments. Anesthesia Type Anesthesia Type: General History Source History Obtained from:: Patient and Chart Anesthesia Focused Assessment* Oxygen Delivery Method: Room Air Airway Assessment Mouth opens: >3 cm Mallampati Score: III Teeth Condition: Intact Focused Labs Anesthesia Preop lab: CBC WBC 6.7 K/mm3 (4.4-11.0) 01/16/25 02:01/16/25 RBC 4.43 M/mm3 (4.2-5.4) 01/16/25 02:01/16/25 Hgb 11.9 g/dL (12.0-15.0) L 01/16/25 02: 5 Hct 37.7 % (37-47) 01/16/25 02:01/16/25 Plt Count 196 K/mm3 (150-450) 01/16/25 02:01/16/25 CHEMISTRY Potassium 4.1 mmol/L (3.3-5.1) 01/16/25 02:01/16/25 Sodium 140 mmol/L (133-145) 01/16/25 02:01/16/25 Magnesium 2.2 mg/dL (1.5-2.2) 01/16/25 02:25 01/16/25 BUN 17 mg/dL (4-19) 01/16/25 02:01/16/25 Creatinine 0.76 mg/dL (0.70-1.20) 01/16/25 02:01/16/25 Glucose 99 mg/dL (70-99) 01/16/25 02:01/16/25 POC Glucose 66 mg/dL (74-106) L 04/04/24 06:17 04/04/24 TSH 4.830 uIU/mL (0.358-3.740) H 11/23/24 15:43 COAG PT 14.6 SECONDS (11.7-14.9) 04/03/24 03:20 Urine Test Negative Negative 03/03/25 06:18 03/03/25 Tst Clinic Negative 06/17/23 15:32 06/17/23 Pre-Assessment Diagnosis/Proposed Procedure Planned Operative Procedure(s): Robotic Cholecystectomy with possible IOC Anesthesia History 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 When Was Last Pacemaker Check QUESTION #4 FULL TEXT: You/Your Family Experience fever (hyperthermia) with Anesthesia Last Oral Intake Last Oral intake: Last Oral Intake NPO since Meds taken in AM with sips of water? Meds patient instructed to take am of surgery PONV PONV - wildland fire fighter: PONV - wildland fire fighter Female Yes 02/17/25 10:11 HX of Motion Sickness No 02/17/25 10:11 HX of N/V After Surgery No 02/17/25 10:11 Non-Smoker Yes 02/17/25 10:11 Duration of Surgery greater Yes 02/17/25 10:11 than 60 minutes Number of Risk Factors 3 02/17/25 10:11 PONV Score Moderate Risk 02/17/25 10:11 Height & Weight Height & Weight: Anesthesia: Height & Weight Height 5 ft 2 in 01/27/25 10:28 Respiratory Assessment Respiratory Assessment - wildland fire fighter: Respiratory Tract Infection Hx - wildland fire fighter Hx Respiratory Tract Infection No 02/17/25 10:11 STOP Sleep Apnea STOP Sleep Apnea - wildland fire fighter: STOP Sleep Apnea - wildland fire fighter Hx Hypertension No 02/17/25 10:11 Hx Sleep Apnea No 02/17/25 10:11 CPAP BIPAP Do you snore loudly (louder No 02/17/25 10:11 than talking or can be heard Do you often feel tired/ No 02/17/25 10:11 fatigued/ sleepy during daytime? Has anyone observed you stop No 02/17/25 10:11 breathing during sleep? STOP Results Negative 02/17/25 10:11 QUESTION #5 FULL TEXT : Do you snore loudly (louder than talking or can be heard through closed doors)? 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 Specify any problems Hx of Preganancy in last 3 No 02/17/25 10:11 Months Nurse Filling Out Transfusion JZOLLINGE 02/17/25 10:11 & Questions: Date: 02/17/25 02/17/25 10:11 Time: 10:14 02/17/25 10:11 Patient unable to answer at this time (ie. confused, unrespo /Reproduction History /Reproductive History - wildland fire fighter: /Reproductive Hx- wildland fire fighter Hx Now No 02/17/25 10:11 Gestational Age (in weeks): EDC: Hx Hx Para Hx Section SAB No 02/17/25 10:11 Active Medications Active Medications: Current Medications Generic Name Dose Route Start Last Admin Trade Name Freq PRN Reason Stop Dose Admin Indocyanine Green 3.75 mg/ N/A 1.5 mls @ 999 mls/hr 03/03/25 07:30 IV 03/03/25 07:31 PREOP ONE Clindamycin Phosphate 900 mg in 50 mls @ 75 mls/hr 03/03/25 07:30 Cleocin IV 03/03/25 08:09 INTRAOP ONE Lactated Ringer's 1,000 mls @ 15 mls/hr 03/03/25 06:30 IV .Q48H FELICE PFSH Medical History Wears glasses Gastric reflux Non-smoker Pre-eclampsia affecting childbirth Liver disease depression Depression Thyroid disorder FH: breast cancer Rh negative status during Impacted cerumen of both ears Pelvic pain depression Gestational diabetes Family history of cleft palate Anxiety Home Medications ?Medication ?Instructions ?Recorded ?Last Taken ?Type famotidine 40 mg tablet (Pepcid) 40 mg PO DAILY 04/03/24 00:00 History sertraline 50 mg tablet 75 mg (1.5 x 50 mg) PO QDAY #135 03/23/24 04/02/24 21:00 Rx tabs Allergy/AdvReac Type Severity Reaction Status Date / Time penicillin G Allergy Mild Rash Verified 02/17/25 10:07 cefaclor (From Ceclor) Allergy Rash Verified 02/17/25 10:07 Family History Mother Diabetes Hypertension Breast cancer, Onset Age: 55 Grandmother Diabetes CVA (cerebral vascular accident) Grandfather Diabetes Grandmother Heart disease Grandfather Heart disease Father Thyroid disorder Sister Thyroid disorder Surgical History History of wisdom tooth extraction, class II edentulism Social History adopted: No household members: spouse and children housing: house number of children: 2 current occupational status: employed 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 current occupational exposures/hazards: No pets and animals: Yes pets and animals: dog(s) history of recent travel: No sexually active: Yes Smoking Status: Never smoker Electronic Cigarette Use: not used alcohol intake: current alcohol intake frequency: holidays/special occasions only details: not while substance use type: does not use well-balanced diet: daily or most days caffeine: Yes Type: tea Number of servings: 1 eating out: 1-3 times/week during the past year weight has: remained stable what type of physical activity do you participate in: none macrina/zoroastrianism: None seatbelt use: always do you feel safe at home: Yes additional social history: [facility] Review of Systems (Anesthesia) ROS Narrative System reviewed and no additional complaints, except as documented. Physical Exam Const alert and oriented x3 Nutritional Appearance: obese
[2025-03-03] MEDS: Lactated Ringers 1,000 ML 15 ML IV ×2 (06:45→12:06)
[2025-03-03] MEDS: INDOCYANINE GREEN 3.75 MG in Syringe 1.5 ML 999 MG IV (06:50)
--- NOTE | 2025-03-03 07:10 | PCM.HP.BLA ---
History and Physical Date of Admission: 03/03/25 Intake Vital Signs 01/19/2513:41 01/27/2510:28 Height 5 ft 2 in 5 ft 2 in Weight: 254 lb 6 oz 254 lb BMI 46.5 46.4 BP 134/78 H 134/83 H Blood Pressure Location Rt brachial Rt brachial Position Sitting Sitting Respiration 16 17 Pulse 79 75 Pulse Source Monitor Monitor Temp 96.4 F L Temp Source Temporal Pulse Oximetry (%) 98 97 Oxygen Delivery Method room air room air Intake Visit Reasons: GALLBLADDER Chief Complaint: gallbladder Is patient in pain?: No Allergies penicillin G Allergy (Mild, Verified 01/27/25 10:29) Rashcefaclor (From Ceclor) Allergy (Verified 01/27/25 10:29) Rash Medications ?Medication ?Instructions ?Recorded ?Confirmed ?Type famotidine 40 mg tablet (Pepcid) 40 mg PO DAILY 06/21/22 01/27/25 History levothyroxine 150 mcg tablet 150 mcg PO DAILY #30 tabs 03/04/24 01/27/25 Rx (Synthroid) sertraline 50 mg tablet 75 mg (1.5 x 50 mg) PO QDAY #135 03/23/24 01/27/25 Rx tabs PFSH Medical History FH: breast cancer Rh negative status during Pre-eclampsia affecting childbirth Liver disease depression Depression Thyroid disorder Impacted cerumen of both ears Pelvic pain depression Gestational diabetes Family history of cleft palate Anxiety Surgical History History of wisdom tooth extraction, class II edentulism Family History Mother Diabetes Hypertension Breast cancer, Onset Age: 55Grandmother Diabetes CVA (cerebral vascular accident)Grandfather DiabetesGrandmother Heart diseaseGrandfather Heart diseaseFather Thyroid disorderSister Thyroid disorder Social History adopted: No household members: spouse and children housing: house number of children: 2 current occupational status: employed 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 current occupational exposures/hazards: No pets and animals: Yes pets and animals: dog(s) history of recent travel: No sexually active: Yes Smoking Status: Never smoker Electronic Cigarette Use: not used alcohol intake: current alcohol intake frequency: holidays/special occasions only details: not while substance use type: does not use well-balanced diet: daily or most days caffeine: Yes Type: tea Number of servings: 1 eating out: 1-3 times/week during the past year weight has: remained stable what type of physical activity do you participate in: none macrina/muslim: None seatbelt use: always do you feel safe at home: Yes additional social history: [facility] HPI HPI: Patient is a 34-year-old female here with right upper quadrant pain. She was found to have multiple gallstones. She says the pain is worse after eating. ROS General General: Yes weight change and fatigue; No appetite, colon cancer, breast cancer or weakness HEENT HEENT: No difficulty swallowing, eye injury, eye surgery, swollen glands or hoarseness Endo Endocrine: No thyroid disease, diabetes mellitus, thyroid cancer, Hair loss, heat intolerance or cold intolerance Skin Skin: No rash or changing moles Musc Musculoskeletal: No back problems, arthritis, rheumatoid arthritis, gout or joint pain Cardio Cardiovascular: No murmur, pacemaker, heart disease, atrial fibrillation, high blood pressure, heart attack, heart stent, palpitations, shortness of breath with exertion or chest pain Psych Psychiatric: Yes depression and anxiety; No hearing voices Resp Respiratory: No shortness of breath, No sleep apnea, No cough, No COPD, No asthma, No emphysema and No wheezing Gastro Gastrointestinal: No abdominal pain, No nausea or vomiting, Yes diarrhea, No constipation, No blood in stool, Yes acid reflux, No hemorrhoids, No ulcers, Yes gallbladder problem and No black,tarry stools Beto Hematologic: No blood thinners, No blood disorders, No bleeding, No anemia and No blood clots Neuro Neurologic: No system reviewed and no additional complaints, except as documented, No as per HPI, No abnormal gait, No abnormal hearing, No abnormal movements, No abnormal speech, No behavioral changes, No burning sensations, No confusion, No convulsions, No disequilibrium, No dizziness, No localized weakness, No frequent falls, No headache(s), No lack of coordination, No loss of vision, No memory loss, No numbness, No other visual disturbances, No radicular pain, No restless legs, No sensory deficit, No syncope, No tingling, No tremor(s), No weakness and No other Exam Const General: cooperative Orientation: alert and oriented x3 HENMT Head: normal to inspection Neck Neck: normal visual inspection and full ROM Chest Chest palpation & inspection: normal inspection of the chest Resp Effort & Inspection: normal respiratory effort Auscultation: clear to auscultation bilaterally Cardio Rate: regular rate Rhythm: regular rhythm GI Inspection: non-distended Palpation: soft and nontender Skin General: no rashes or lesions noted Neuro General: patient alert and patient oriented x3 Extrem General: full ROM Psych Appearance: grossly normal Mental Status: mental status grossly normal Assessment and Plan Assessment and Plan (1) Gallstones: Status: Acute Plan: The patient has multiple gallstones. I recommended robotic assisted laparoscopic cholecystectomy with cholangiograms. I discussed the procedure in detail with the patient. I discussed the risks, benefits, and alternatives of the procedure. I discussed the risks including but not limited to bleeding, infection, injury to surrounding organs such as the liver, bile duct, bowels. I did discuss the possibility of having to convert to an open procedure as well as the possibility that if any injuries occurred this may necessitate further surgery at a tertiary care center. Jason Pelaez MD Pager: [facility] [address] [place] [address], [address] [place] [address] Office: I have examined the patient and the H&P has been reviewed. There are no clinical changes since date of exam.
--- NOTE | 2025-03-03 07:30 | GALL_PTH ---
PATIENT: MEL JUARES LOC: [facility] U#:[id number] AGE/SX: 34/F ROOM: RE03/03/[address]: Dr. Jason Pelaez MD : 1990 BED: DIS: 03/03/2025 SPEC #: [id number] RECD: 03/03/25 11:01 STATUS: PAXTON TAYIvon #: [id number] BK: 03/03/25 07:[address]: Jason Pelaez DEPT: SURGICAL PATHOLOGY RECD BY: Sheldon Wheat ENTERED: 03/03/25 12:00 SP TYPE: UNIQUE HERNANDEZ DR: Dr. Xiomara Mclaughlin MD Tissues: A - Gallbladder, NOS Procedures: Surgery Specimen Level III HEADER OPERATION: Robotic cholecystectomy PRE-OP DIAGNOSIS: Gallstones, cholelithaisis TISSUE SUBMITTED: A- Gallbladder MICROSCOPIC DIAGNOSIS A. Gallbladder, cholelithiasis, cholecystectomy: * Chronic cholecystitis with cholelithiasis. MICROSCOPIC DESCRIPTION Slides are reviewed. GROSS DESCRIPTION A. Received in formalin in a container labeled with the patient's name, date of , and gallbladder is a 7.5 x 3.2 x 1.7 cm predominantly intact cholecystectomy specimen. A clamped 0.8 cm in length by 0.3 cm in diameter possible cystic duct margin is identified and inked black. The serosa is within normal limits. The specimen is opened to reveal a moderate amount of thick brown bile with multiple tiny black and friable stone fragments measuring approximately 0.2 cm in aggregate. The mucosa is red-albrecht with a scant amount of miller stippling. There is an average wall thickness of 0.2 cm. Radio Interference Expert sections are submitted in A1 (including cystic duct margin, en face with full-thickness sections). [facility] 03-03-2025 CPT:51359
[2025-03-03] MEDS: Clindamycin 900 MG/50 ML BAG 75 MG IV (07:32)
[2025-03-03] MEDS: Bupivacaine Mpf 0.5% 30 ML VIAL (09:13)
--- NOTE | 2025-03-03 09:22 | OP.PCM_ITS ---
Operative Report (Standard) Operative Information Date of Procedure: 03/03/25 Pre-Operative Diagnosis: Cholelithiasis Post-Operative Diagnosis: Cholelithiasis Surgery/Procedure Performed: Robotic assisted laparoscopic cholecystectomy jewel stripper: Yes Product Test Engineer: Rogerio Masters Tasks completed by financial administrative assistant: Opening and Closing Type of Anesthesia: General/Regional RN Documented Start/Stop Times: Operation Date: 03/03/25 07:30 Case Time Into Pre-Op 03/03/25 06:17 Out of Pre-Op 03/03/25 07:25 Anesthesia Start 03/03/25 07:29 Into Room 03/03/25 07:29 Procedure Start 03/03/25 07:58 Procedure Start Time: 07:58 Procedure Stop Time: 09:30 Select all DRAINS/GRAFTS/IMPLANTS that apply: None Estimated Blood Loss: 10 Specimen collected: Yes Description of specimen(s) removed: Gallbladder Description of surgery: Patient was brought back to the operating room and general anesthesia was induced. The abdomen was prepped and draped in usual sterile fashion. A midline incision was made superior to the umbilicus and the fascia was elevated and the Veress needle was placed into the abdomen. A drop test was performed. The abdomen was insufflated 15 mmHg and the needle was removed. A port was placed. Camera was placed into the abdomen and there were no injuries from entry. Under direct visualization a left upper quadrant port was placed as well as another left upper quadrant port and then a right upper quadrant port. The robot was docked. The gallbladder was retracted cephalad and the infundibulum was located. The patient had a very floppy left lobe which was interfering with visualization. The gallbladder infundibulum was located and the electrocautery to take down the peritoneum. The cystic duct was identified using ICG. The duct was triply clipped and divided. The artery was identified. It was doubly clipped and divided. The gallbladder was taken off of the gallbladder fossa using electrocautery hook. There was good hemostasis with no leaking bile. The gallbladder was placed into a bag. The gallbladder fossa was irrigated and suctioned dry. The gallbladder was removed through the midline incision. Camera was reinserted through one of the lateral ports and using a Ivan Pruett needle the midline incision was closed with 0 Vicryl suture. Next it was irrigated and suctioned dry. The skin incisions were injected with local anesthetic and closed with interrupted 4-0 Monocryl sutures. Steri-Strips and bandages were applied. Patient was taken to PACU in stable condition. Surgical Findings: none Complications Complications: No Admit VTE Documentation VTE Mechan Device Prophylaxis: SCD's
--- NOTE | 2025-03-03 09:30 | EX.PCM.DISCH ---
Discharge Instructions Procedure Gallbladder Diet Discharge Diet: Light diet - advance as tolerated Activity Discharge Activity: May Not Drive (for 2-3 days or while taking narcotic pain medications.) and - (Do not drive, work heavy equipment or sign legal documents for 24 hours.) May shower in (days): 1 Lifting Restrictions: 20 lbs for 2 weeks Additional Activity Instructions:: Pain medication may cause nausea. You should typically eat light foods as you take your pain medications. Pain medication may also cause constipation. If this is a problem for you, please discuss with your doctor. Dressing / Incision Call your doctor if your incision/area has: Continuous Slow Oozing, Sudden Increased Bleeding, Increased Pain/ Swelling, Increased Redness and Foul Smelling Discharge Call your doctor if you observe: Fever of 101 or Higher Suture Line Care: Avoid Pulling/Pushing and Avoid Pinching/Bending Remove Dressing in: 2 days Additional Dressing/Incision Instructions:: Leave operative bandaids on for 2 days. When you remove dressing, leave Steri-Strips on until your follow-up appointment, or until the Steri-Strips fall off on their own. Follow Up Care Please Follow Up With: Jason Pelaez MD When: Please call to schedule 2 week follow up appointment. [phone] Test Results: Test results from this visit will be discussed in further detail at your follow-up appointment, if applicable. Discharge Plan Admission Attending Provider: Jason Pelaez Primary Care Provider: Xiomara Mclaughlin Instructions Print Language: Nepalese Discharge Orders/Prescriptions Prescriptions: New oxycodone 5 mg Tablet 5 - 10 mg PO Q4H PRN PRN (Reason: Pain Score 4-10) 5 Days Qty: 20 0RF No Action famotidine [Pepcid] 40 mg tablet 40 mg PO DAILY sertraline 50 mg tablet 75 mg PO QDAY Qty: 135 4RF Other Ambulatory Orders: 12 Lead EKG (Routine) Timeframe: [id number] Facility: [facility] - Location: Cardiovascular Services Ordered By: Dr. Antwan Ojeda Referrals / Follow Up: Xiomara Mclaughlin MD [Primary Care Provider] - Disposition Disposition (needs filled in before D/C Order can be placed): Home, Self Care
--- NOTE | 2025-03-03 09:38 | PCM.POST.ANE ---
Anesthesia: Postop Eval I Current Vital Signs Temperature: 97 F Pulse Rate: 95 Blood Pressure: 128/93 Respiratory Rate: 16 Pulse Ox: 100 Oxygen Delivery Method: Simple Mask Oxygen Flow Rate (L/min): 8 Assessment Airway patent: Yes Spontaneous unlabored respirations: Yes Mental status: Awake and Calm nausea: No Vomiting: No Anesthesia Complication: No Fluid Hydration Crystalloid volume administer (ml): 800 Total IV fluid infused: 800 Progress Note Anesthesia document: Postop Eval 1 completed: Yes
--- NOTE | 2025-03-03 10:55 | POSTOPAN2_ITS ---
Anesthesia Postop Eval I Sum Postop Eval Completion status Anesthesia document: Postop Eval 1 completed: Yes Anesthesia Postop Eval I Summary Anesthesia Postop Eval I Summary: Anesthesia Postop Eval I: Assessment Summary Airway patent Yes 03/03/25 09:39 [email or web address] Spontaneous unlabored Yes 03/03/25 09:39 [email or web address] [email or web address] respirations Mental status Awake,Calm 03/03/25 09:39 [email or web address] nausea No 03/03/25 09:39 [email or web address] [email or web address] Vomiting No 03/03/25 09:39 [email or web address] Anesthesia Postop Eval I: Fluid Summary Crystalloid volume administer 800 03/03/25 09:39 [email or web address] [email or web address].[email or web address] (ml) Colloids volume administered ( ml) Blood Product volume administered (ml) Total IV fluid infused 800 03/03/25 09:39 [email or web address] [email or web address] Anesthesia Postop Eval I: Summary Notes Anesthesia Complication No 03/03/25 09:39 [email or web address] Anesthesia Complication Comment: Post-operative progress note Anesthesia: Postop Eval II Evaluation Mental status: Awake and Calm Pain Level: 3 nausea: No Vomiting: No Complications Anesthesia Complication: No
--- NOTE | 2025-03-03 10:55 | PCM.POSTANE2 ---
Anesthesia Postop Eval I Sum Postop Eval Completion status Anesthesia document: Postop Eval 1 completed: Yes Anesthesia Postop Eval I Summary Anesthesia Postop Eval I Summary: Anesthesia Postop Eval I: Assessment Summary Airway patent Yes 03/03/25 09:39 DIVING [email or web address] Spontaneous unlabored Yes 03/03/25 09:39 DIVING [email or web address] respirations Mental status Awake,Calm 03/03/25 09:39 DIVING [email or web address] nausea No 03/03/25 09:39 DIVING [email or web address].GDOTT Vomiting No 03/03/25 09:39 DIVING [email or web address] Anesthesia Postop Eval I: Fluid Summary Crystalloid volume administer 800 03/03/25 09:39 DIVING [email or web address].GDOTT (ml) Colloids volume administered ( ml) Blood Product volume administered (ml) Total IV fluid infused 800 03/03/25 09:39 DIVING [email or web address] Anesthesia Postop Eval I: Summary Notes Anesthesia Complication No 03/03/25 09:39 DIVING [email or web address].[email or web address] Anesthesia Complication Comment: Post-operative progress note Anesthesia: Postop Eval II Evaluation Mental status: Awake and Calm Pain Level: 3 nausea: No Vomiting: No Complications Anesthesia Complication: No
== END 2025-03-03 13:40 | disposition home or self-care (01) ==
LOC: SDC 06:04 → AC 06:06
PROVIDERS: Anesthesiology; PCP Internal Medicine; Referring Provider Surgery; Visit Provider Surgery
PROC: 0FT44ZZ Resection of Gallbladder, Percutaneous Endoscopic Approach (ICD-10-PCS; CPT 47562; principal; 2025-03-03 07:10)
DX: K80.10 Calculus of gallbladder with chronic cholecystitis without obstruction (principal); K21.9 Gastro-esophageal reflux disease without esophagitis; E07.9 Disorder of thyroid, unspecified; F32.A Depression, unspecified; F41.9 Anxiety disorder, unspecified; Z79.890 Hormone replacement therapy; Z79.899 Other long term (current) drug therapy
CPT/HCPCS: 47562; 00790; 81025; 88304; J2405